=== PATIENT | female | born 1955 | race Caucasian/White ===

== ENCOUNTER 2021-10-21 10:09 | Outpatient (REF) | payer BC, SELFPAY ==
[2021-10-21 10:36] LABS: Basophils Absolute Auto 0.1 X10*3/uL (0.0-0.2); Basophils Percent Auto 0.8 % (0-2); Eosinophils Absolute Auto 0.3 X10*3/uL (0.0-0.4); Eosinophils Percent Auto 3.3 % (0-4); Hematocrit 41.2 % (37.0-47.0); Hemoglobin 13.3 g/dl (12.0-16.0); Imm Gran Abs Auto 0.02 X10*3/uL (0.00-0.03); Imm Gran Pct Auto 0.3 % (0.0-0.4); Lymphocytes Absolute Auto 2.1 X10*3/uL (1.2-4.9); Lymphocytes Percent Auto 28.1 % (20-40); MANUAL DIFF FLAG NO; Mean Corpuscular HGB Conc 32.3 g/dl (31.0-35.0); Mean Corpuscular Hemoglobin 29.6 pg (27.0-33.0); Mean Corpuscular Volume 91.6 fL (80.0-98.0); Mean Platelet Volume 9.9 fL (9.4-12.3); Monocytes Absolute Auto 0.8 X10*3/uL (0.1-1.2); Monocytes Percent Auto 10.2 % (2-11); Neutrophils Absolute Auto 4.4 x10*3/uL (2.0-8.3); Neutrophils Percent Auto 57.3 % (45-73); Platelet Count 290 X10*3/uL (160-400); Red Cell Distribution Width 13.6 % (11.0-16.0); White Blood Count 7.6 X10*3/uL (4.8-10.8)
[2021-10-21 11:08] LABS: C Reactive Protein 0.18 mg/dL (< or = 0.50)
[2021-10-21 11:58] LABS: Erythrocyte Sedimentation Rate 10 MM/HR (0-20)
[2021-10-23 16:01] LABS: TS Negative Control Passed; TS Panel A 0; TS Panel B 0; TS Positive Control Passed; TSpotTB Negative (Negative)
== END 2021-10-21 10:10 | disposition home or self-care (01) ==
LOC: HO.10HDL 10:09
PROVIDERS: Visit Provider Internal Medicine Rheumatology
DX: Z11.1 Encounter for screening for respiratory tuberculosis (principal); M06.00 Rheumatoid arthritis without rheumatoid factor, unspecified site; Z79.899 Other long term (current) drug therapy
CPT/HCPCS: 36415; 85025; 85652; 86140; 86481

== ENCOUNTER → 2022-03-26 09:07 | Outpatient (BNVA) | payer BC, SELFPAY | PROVIDERS: PCP Internal Medicine; Visit Provider Internal Medicine Rheumatology | DX: Z13.89 Encounter for screening for other disorder (principal) ==

== ENCOUNTER 2022-04-27 08:47 | Outpatient (REF) | payer BC, SELFPAY ==
--- NOTE | ~2022-04-27 | MR_ITS ---
EXAMINATION: MR LUMBAR SPINE WITHOUT CONTRAST CLINICAL INFORMATION: Spondylosis without myelopathy or radiculopathy, lumbar region. COMPARISON: None TECHNIQUE: MRI of the lumbar spine was obtained using routine sequences without contrast. FINDINGS: The lumbar vertebral bodies maintain normal heights. There is grade 1 retrolisthesis of L1 on L2 with associated severe disc height loss. There is grade 1 anterolisthesis of L3 on L4 and L5 on S1 and trace retrolisthesis of L4 on L5. Disc height loss is moderate to severe to L3-L4, L4-L5, and L5-S1. Advanced disc height loss is seen at the lower thoracic levels. There is endplate edema at L1-L2. The distal spinal cord appears normal. The conus medullaris terminates normally at the L2 level. There is fatty atrophy of the posterior paraspinal musculature. SPINAL LEVELS: L1-L2: Disc bulging with moderate to severe facet arthropathy resulting in mild spinal canal stenosis, subarticular stenosis, and severe left and moderate to severe right neural foraminal stenosis. L2-L3: Disc bulging with facet arthropathy, ligamentum flavum infolding, and epidural lipomatosis resulting in moderate spinal canal stenosis and severe right and moderate to severe left neural foraminal stenosis. L3-L4: Grade 1 anterolisthesis with ligament flavum infolding and severe facet arthropathy resulting in severe spinal canal stenosis with thecal sac compression. Moderate left and [id number] right neural foraminal stenosis. L4-L5: Disc bulging with moderate facet arthropathy. Osteophytic ridging extends into the extraforaminal zone resulting in compression of the extraforaminal left L4 nerve root. L5-S1: Disc bulging with severe facet arthropathy. No spinal canal stenosis. Osteophytic ridging abuts the exiting right L5 nerve root and compresses the exiting left L5 nerve root. MR/MR lumbar spine wo con IMPRESSION: 1. Advanced multilevel degenerative spondylotic changes. 2. At L1-L2 there is severe left and moderate to severe right neural foraminal stenosis. 3. At L2-L3 there is moderate spinal canal stenosis and severe right and moderate to severe left neural foraminal stenosis. 4. At L3-L4 there is severe spinal canal stenosis with thecal sac compression and moderate left and kqjn-vx-[id number] right neural foraminal stenosis. 5. At L4-L5 there is compression of the extraforaminal left L4 nerve root. 6. At L5-S1 there is compression of the exiting left L5 nerve root.
[2022-04-27 08:56] LABS: MANUAL DIFF FLAG NO
[2022-04-27 09:03] LABS: Basophils Absolute Auto 0.1 X10*3/uL (0.0-0.2); Basophils Percent Auto 0.9 % (0-2); Eosinophils Absolute Auto 0.3 X10*3/uL (0.0-0.4); Eosinophils Percent Auto 4.3 % (0-4); Hematocrit 44.9 % (37.0-47.0); Hemoglobin 14.4 g/dl (12.0-16.0); Imm Gran Abs Auto 0.02 X10*3/uL (0.00-0.03); Imm Gran Pct Auto 0.3 % (0.0-0.4); Lymphocytes Percent Auto 29.3 % (20-40); Mean Corpuscular HGB Conc 32.1 g/dl (31.0-35.0); Mean Corpuscular Hemoglobin 29.2 pg (27.0-33.0); Mean Corpuscular Volume 91.1 fL (80.0-98.0); Mean Platelet Volume 9.3 fL (9.4-12.3); Monocytes Absolute Auto 0.6 X10*3/uL (0.1-1.2); Neutrophils Absolute Auto 3.9 x10*3/uL (2.0-8.3); Neutrophils Percent Auto 56.2 % (45-73); Platelet Count 319 X10*3/uL (160-400); Red Blood Count 4.93 X10*6/uL (4.20-5.50); Red Cell Distribution Width 13.8 % (11.0-16.0); White Blood Count 6.9 X10*3/uL (4.8-10.8)
[2022-04-27 09:36] LABS: C Reactive Protein 0.21 mg/dL (< or = 0.50)
[2022-04-27 10:10] LABS: Erythrocyte Sedimentation Rate 12 MM/HR (0-20)
[2022-04-28 14:18] LABS: Cyclic Citrullinated Peptide <16 UNITS
== END 2022-04-27 08:48 | disposition home or self-care (01) ==
LOC: HO.MRI 08:47
PROVIDERS: PCP Internal Medicine; Visit Provider Internal Medicine Rheumatology
DX: M43.16 Spondylolisthesis, lumbar region (principal); M47.816 Spondylosis without myelopathy or radiculopathy, lumbar region; M06.00 Rheumatoid arthritis without rheumatoid factor, unspecified site
CPT/HCPCS: 36415; 72148; 85025; 85652; 86140; 86200

== ENCOUNTER 2022-06-16 09:47 | Outpatient (REF) | payer BC, SELFPAY ==
--- NOTE | ~2022-06-16 | XR_ITS ---
EXAMINATION: XR LUMBOSACRAL SPINE WITH OBLIQUES CLINICAL INFORMATION: Spondylolisthesis lumbar region. COMPARISON: Previous lumbar spine MRI April 2022. TECHNIQUE: AP, both oblique, and lateral views of the lumbar spine. Lateral view of the lumbosacral junction. FINDINGS: There is mild anterior subluxation of L3 with respect to L4. This is stable on flexion views and decreases on extension views. There is minimal retrolisthesis of L1 with respect to L2. This is stable on flexion-extension views. Bone alignment is otherwise normal. No fracture. Multilevel degenerative disc disease. Multilevel facet arthritis. XR/XR lumbar spine 4V min IMPRESSION: Mild anterior subluxation of L3 with respect to L4 stable on flexion and decreased with extension views. Multilevel degenerative changes.
== END 2022-06-16 09:48 | disposition home or self-care (01) ==
LOC: HO.HOSX 09:47
PROVIDERS: PCP Internal Medicine; Visit Provider Physician Assistant
DX: M43.16 Spondylolisthesis, lumbar region (principal)
CPT/HCPCS: 72110

== ENCOUNTER → 2022-08-12 08:47 | Outpatient (BNVA) | payer BC, SELFPAY | PROVIDERS: PCP Internal Medicine; Visit Provider Anesthesiology ==

== ENCOUNTER → 2022-09-07 09:19 | Outpatient (BNVA) | payer BC, SELFPAY | PROVIDERS: PCP Internal Medicine; Visit Provider Internal Medicine Rheumatology ==

== ENCOUNTER 2022-10-20 05:56 | Outpatient (REF) | payer BC, SELFPAY ==
--- NOTE | ~2022-10-20 | FL_ITS ---
EXAMINATION: XR FLUOROSCOPY WITH IMAGES CLINICAL INFORMATION: Spondylosis without myelopathy or radiculopathy, lumbar region. COMPARISON: None available. TECHNIQUE: Fluoroscopy Supervised By: Dr. Sky Guillen. Fluoroscopy Time: 1.0 minute. Cumulative Dose: 36.3 mGy. DAP: 0.631 Gycm2. Images: 8. FINDINGS: Images demonstrate needle placement and contrast injection adjacent to the bilateral lateral L2-L5 vertebrae FL/FL guidance in treatment room IMPRESSION: Fluoroscopy guidance for pain management procedure.
== END 2022-10-20 05:57 | disposition home or self-care (01) ==
LOC: CF 05:56
PROVIDERS: Visit Provider Anesthesiology
DX: M46.1 Sacroiliitis, not elsewhere classified (principal); M43.16 Spondylolisthesis, lumbar region; M47.816 Spondylosis without myelopathy or radiculopathy, lumbar region; Z79.899 Other long term (current) drug therapy
CPT/HCPCS: 64493; 64494

== ENCOUNTER 2022-10-20 07:29 | Outpatient (AMB) | payer BC, SELFPAY ==
--- NOTE | 2022-10-20 07:42 | MHC.OFFVIS ---
Intake Vital Signs 10/20/22 07:43 10/20/22 08:59 Height 5 ft 5 in 5 ft 5 in Weight 209 lb 209 lb BMI 34.8 34.8 BP 128/80 110/80 Blood Pressure Location Lt brachial Rt brachial Position Sitting Sitting Respiration 16 16 Pulse 80 77 Pulse Source Pulse Oximeter Pulse Oximeter Pulse Oximetry (%) 97 95 Oxygen Delivery Method Room Air Room Air Comment Pre-Op Post-op Intake Visit Reasons: BILAT L1-L2-L3 DX MBB/LOCAL Allergies morphine Adverse Reaction (Intermediate, Verified 10/20/22 07:43) Unknown PFSH Surgical History H/O arthroscopy of left knee H/O elbow surgery History of bladder suspension procedure History of total knee arthroplasty Hx of colonoscopy Hx of hysterectomy S/P bilateral breast lumpectomy Family History Other Gout Heart disease Lung cancer Osteoarthritis Rheumatoid arthritis Stomach cancer Stroke Social History Household Members: Spouse and Children Alcohol intake: current Alcohol intake frequency: holidays/special occasions only Patient Tobacco Use Status: Never used Tobacco service: No Current occupational status: employed Physical Exam Vital Signs: Last Vital Signs Pulse 77 10/20/22 08:59 Resp 16 10/20/22 08:59 BP 110/80 10/20/22 08:59 Pulse Ox 95 10/20/22 08:59 Oxygen Delivery Method Room Air 10/20/22 08:59 BMI result Body Mass Index 34.8 Assessment & Plan Assessment & Plan (1) Sacroiliitis: Code(s): M46.1 - Sacroiliitis, not elsewhere classified (2) Spondylolisthesis at L3-L4 level: Code(s): M43.16 - Spondylolisthesis, lumbar region (3) 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 ?Informed consent was explained to the patient. All questions were explained and? answered.? The patient was taken inside the operating room where she was positioned prone on the operating table. Time-out was performed delineating correct site, side, the nature of the procedure, patient's allergy, . All operating room staff was participating in OR time-out procedure. ? ? The lower back was prepped with ChloraPrep and draped with sterile towels.? C-arm was brought over the operating field and sq picture of L2, L3L4,L5 VERTEBRAE were delineated on the screen.? Point of interest were delineated as confluence of superior articular process of L2,L3,L4,L5 vertebra bilaterally with corresponding transverse processes.? The projection of the point of interest to the skin were injected with the small amount of local anesthetic lidocaine 2% 1-1.5 cc.? After that 22 gauge 3.5 inch spinal needle was driven sequentially to the points of interest in tunnel vision fashion. After needles gently contacted the bone at the point of interests the needle was injected with small amount of the contrast.? The injection of the contrast did not demonstrate any intravascular or intrathecal spread of the contrast.? After that injection of the? ropivacaine 0.5%-1cc was performed at each needle location.??after that the needles were removed and Bandaids were applied. ? Upon completion of the injections? needle was? removed and sterile Band-Aids were applied.? The patient tolerated procedure very well. (5) Spondylosis of lumbar region without myelopathy or radiculopathy: Code(s): M47.816 - Spondylosis without myelopathy or radiculopathy, lumbar region Plan I offered this patient to perform the same steroid injections she had that [facility]. Explained to her that although those were very effective steroids are not very healthy medications for her age. I also offered her to have diagnostic medial branch block L1-L2 L3-L4 bilateral to properly diagnose and establish her pain generator. I also would like to perform bilateral sacroiliac joint injection to diagnose portion of her pain. She will compare which procedure gives her most significant pain relief and we will choose appropriate modality to treat her pain interventionally. 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
[2022-10-20 07:43] VITALS: BP 128/80; PULSE 80; RESP 16; O2SAT 97; BMI 34.8
[2022-10-20 08:59] VITALS: BP 110/80; PULSE 77; RESP 16; O2SAT 95; BMI 34.8
== END 2022-10-20 09:19 | disposition home or self-care (01) ==
PROVIDERS: PCP Internal Medicine; Visit Provider Anesthesiology
DX: M47.816 Spondylosis without myelopathy or radiculopathy, lumbar region (principal)
CPT/HCPCS: 64493; 64494

== ENCOUNTER 2022-10-22 09:48 | Outpatient (AMB) | payer BC, SELFPAY ==
--- NOTE | 2022-10-22 09:52 | A.OFFVIS_ITS ---
Intake Vital Signs 10/22/22 09:57 Height 5 ft 5 in Weight 212 lb BMI 35.3 BP 130/80 Blood Pressure Location Lt brachial Position Sitting Respiration 14 Pulse 75 Pulse Source Pulse Oximeter Pulse Oximetry (%) 97 Oxygen Delivery Method Room Air Intake Visit Reasons: BILAT L1-L2-L3 DX MBB 10/20/22 Intake Note: patient comes in for post-op appointment. Allergies morphine Adverse Reaction (Intermediate, Verified 10/22/22 09:56) Unknown HPI HPI Comments History of Present Illness Details Swati is back in my office after diagnostic bilateral medial branch block L1,-L2, L3, during the procedure notice significant spondylosis in the projection of L4 vertebra and decided to address this issue by giving the patient 1 more level at L4 therefore patient actually received L1-L2 L3 and L4 medial branch blocks bilaterally. After the procedure she reported pain elimination for the 1st 2 hours, she reports 0 pain. At 03:00 hours after the procedure she reports pain 3/10 and 4 hours of the procedure she reported pain 5/10. At 06:00 hours after the procedure her pain went back. It corresponds to the time ropivacaine local anesthetic usually works in soft tissue injection. She reported to me that for the long period of time she was not able to state with her spine straight, her pain made her walk with her spine crooked forward. She enjoyed pain relief while it lasted after the procedure. I explained to the patient possibility of treatment of her condition with radiofrequency ablation versus sprint PNS. 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 However during the conversation she remembered about FMLA law in [place] where her employer is located which allows her to take up to 3 months from work without losing her position. She will request primary care physician assistance in feeling up application for FMLA. If she will succeed we will proceed with screen PNS. If not I can proceed with radiofrequency ablation L1-L2 L3 and L4 medial branches. She will give us a call about her decision. I will not schedule her yet for the procedure. Prior: complains on pain in lower back without radiation into bilateral lower extremities.? She is referred to this office by neuro surgery.? According to the referral she has very advanced disc degeneration in the lumbar spine with spondylolisthesis L3-L4 with significant central canal stenosis.? However she denies weakness in bilateral lower extremities she denies numbness in bilateral lower extremities are her pain is mostly axial without radiation into the legs.? She denies pain radiation into the upper back.? She was examined by x-ray and she was found mild anterior subluxation of L3 with respect of L4 stable on flexion and decreased with extension views she has multilevel degenerative changes.? She in the past had physical therapy performed by [facility] and currently she is a engaged a with physical therapy again.? She reports very minimal pain improvement with physical therapy.? She tried NSAIDs in the past without significant success. She reports that in the past she received L5-S1 epidural steroid injection by [facility] she reported prolonged pain relief from this injection.? She realizes that steroids can cause osteoporosis and potentially result in development of diabetes.? She received many steroid injections for her feet done by Podiatry. Her past medical history significant for rheumatoid arthritis.? Her past surgical history significant for total knee replacement twice in 2014 and in 2018.? She had a endometrial cancer surgery in 2019.? She denies smoking cigarettes denies drinking alcohol she denies recreational drugs she is employed full-time [employer] Surgical History H/O arthroscopy of left knee H/O elbow surgery History of bladder suspension procedure History of total knee arthroplasty Hx of colonoscopy Hx of hysterectomy S/P bilateral breast lumpectomy Family History Other Gout Heart disease Lung cancer Osteoarthritis Rheumatoid arthritis Stomach cancer Stroke Social History Household Members: Spouse and Children Alcohol intake: current Alcohol intake frequency: holidays/special occasions only Patient Tobacco Use Status: Never used Tobacco service: No Current occupational status: employed Review of Systems Const All systems reviewed & are unremarkable except as noted in HPI and below ENT Reports Normal hearing present Neuro Reports Normal hearing present, Denies Abnormal speech present, Denies confusion and Denies Sensory deficit (Neuro) Psych Denies confusion Physical Exam Vital Signs: Last Vital Signs Pulse 75 10/22/22 09:57 Resp 14 10/22/22 09:57 BP 130/80 10/22/22 09:57 Pulse Ox 97 10/22/22 09:57 Oxygen Delivery Method Room Air 10/22/22 09:57 BMI result Body Mass Index 35.3 Const General: no acute distress; No confusion Nutritional Appearance: obese morbidly obese Orientation/consciousness: patient oriented x3 and No confusion Eyes General: appearance normal, both eyes and all related structures Pupils: Equal, round and reactive pupils present EOM: EOMs intact bilaterally Neck Neck: Yes full ROM Chest Chest palpation & inspection: normal inspection of the chest Resp Effort & Inspection: normal respiratory effort, able to speak in complete sente nces, normal respiratory pattern, no audible wheezes and no cough Cardio Jugular venous distension: no JVD GI Inspection: Yes normal to inspection Back/Spine/Pelvis Other: On physical exam performed in neuro surgery office patient demonstrated normal strength of bilateral lower extremities, she denies any numbness in bilateral lower extremities, she has decrease of the bilateral patellar reflexes probably secondary to arthritis and total knee replacement on the left knee. SLR is negative bilaterally. Mac test is positive bilaterally and more pronounced on the right. Stinchfield test is positive on the right. Loading test is positive bilaterally. Reports severe tenderness on palpation projection of approximately L3-L4 lumbar vertebra. The rest of the spine is nontender on palpation. Neuro General: patient oriented x3, gait normal and No confusion Cranial nerves: Yes CN's II-XII intact bilaterally, Yes Equal, round and reactive pupils present, Yes Normal hearing present and Yes Ability to bilaterally elevate shoulders present Speech: No Abnormal speech present Gait exam (Neuro): Normal gait present Motor exam (neuro): 5/5 motor strength present throughout Sensory Exam: No Sensory deficit (Neuro) Extrem General: No pedal edema Psych Speech and movement: Normal speech and movement present Affect: normal affect Attitude: cooperative Thought process: Normal thought process present Thought content: Normal thought content present Insight: Good insight present (Psych) Judgement: Good judgement present (Psych) Assessment & Plan Assessment & Plan (1) Sacroiliitis: Code(s): M46.1 - Sacroiliitis, not elsewhere classified (2) Spondylolisthesis at L3-L4 level: Code(s): M43.16 - Spondylolisthesis, lumbar region (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 (5) Spondylosis of lumbar region without myelopathy or radiculopathy: Code(s): M47.816 - Spondylosis without myelopathy or radiculopathy, lumbar region Plan Very in cording results of the diagnostic medial branch block L1-L2 L3 with additional L4 application due to intraoperative findings. Sprint PNS versus RFA L1-L2 L3-L4 bilateral was discussed with the patient. Initially she thought that because of her occupation she would have to go for RFA. With conversation continued she remembered about [facility] about FMLA act, it looks like that she can take FMLA act for up to 3 months in [place]. She will give us a call and report what her decision will be. I personally prefer if she can afford to go for FMLA and get sprint PNS done to do the sprint procedure. 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
[2022-10-22 09:57] VITALS: BP 130/80; PULSE 75; RESP 14; O2SAT 97; BMI 35.3
== END 2022-10-22 10:14 | disposition home or self-care (01) ==
PROVIDERS: PCP Internal Medicine; Visit Provider Anesthesiology
DX: M46.1 Sacroiliitis, not elsewhere classified (principal); M43.16 Spondylolisthesis, lumbar region; Z79.899 Other long term (current) drug therapy; M47.816 Spondylosis without myelopathy or radiculopathy, lumbar region
CPT/HCPCS: 99214

== ENCOUNTER → 2022-10-22 09:51 | Outpatient (BNVA) | payer BC, SELFPAY | PROVIDERS: PCP Internal Medicine; Visit Provider Anesthesiology ==

== ENCOUNTER 2022-12-03 11:38 | Day surgery (SDC) | payer BC, SELFPAY ==
--- NOTE | ~2022-12-03 | FL_ITS ---
EXAMINATION: XR FLUOROSCOPY WITH IMAGES CLINICAL INFORMATION: RFA L1, L2, L3, L4, bilateral. COMPARISON: Lumbar spine x-ray June 2022 TECHNIQUE: Fluoroscopy Supervised By: Dr. Sky Guillen. Fluoroscopy Time: 1.9 minutes. Cumulative Dose: 68.2 mGy. DAP: 1.14 Gycm2. Images: 6. FINDINGS: Images demonstrate probe placement adjacent to the bilateral posterior lateral L1-L4 vertebral bodies. FL/FL guidance in OR IMPRESSION: Fluoroscopy guidance for pain management procedure
[2022-12-03 11:02] VITALS: BMI 35.8
[2022-12-03 11:52] VITALS: BP 115/64; PULSE 71; RESP 18; TEMP 36.3; O2SAT 97
--- NOTE | 2022-12-03 13:02 | P.HPSUR_ITS ---
Pre-Procedural Eval Section A Date of Service: 12/03/22 The patient is an INPATIENT: No Changes since office visit: Yes Patient answered all questions The History & Physical has been completed within 30 days and I have reviewed it.: No Section B Chief Complaint: Spondylosis without myelopathy or radiculopathy, l Details of Present Illness: As above Relevant Family History (Specify if Yes): No Relevant Social History: None Present Medications: see Short Stay Collaborative assessment Medical History: No relevant PMH History of Previous Operations: No relevant previous surgery Allergies: Allergies Allergy/AdvReac Type Severity Reaction Status Date / Time morphine AdvReac Intermediate Unknown Verified 10/22/22 09:56 Review of Systems Sugical H&P ROS: Negative: Constitution, Cardiovascular, Respiratory, Neurological, Psychiatric, Hem-Onc, Allergic/Immunologic, Gastrointestinal, Genitourinary, Musculoskeletal, Integumentary, Endocrine and Eyes/Ears/Nose/Thr oat Exam Surgical H&P Exam: Normal: HEENT, Normal: Heart, Normal: Lungs, Normal: Extremities, Normal: Abdomen, Normal: Skin and Normal: Neurological Plan Diagnosis/Plan: Unchanged I have reviewed the history and physical and performed a pertinent physical examination on my patient. No changes have occurred unless specified. Time Spent With Patient Time: Total time managing care of this patient today ___5_ minutes.
--- NOTE | 2022-12-03 13:14 | W.PM.OPN ---
Operative Note Operative Note Date of Service: 12/03/22 Narrative: RFA L1-L2-L3-L4 bilateral medial branches. Informed consent was explained to the patient. All questions were explained and answered. The patient was taken inside the operating room where he was positioned prone on the operating table. ASA m-rs were applied,? the patient was sedated however he was able to communicate with me during the entire procedure. The patient was explained that having the procedure while awake would be safer, he was? able to answer the questions and respond to the commands. Time-out was performed delineating name and of the patient,? correct site, side, the nature of the procedure, patient's allergy, preoperative antibiotic if needed. All operating room staff was participating in OR time-out procedure. The lower back was prepped with ChloraPrep and draped with sterile towels. C-arm was brought over the operating field and sq picture of L2, L3, L4, L5 vertebra were delineated on the screen. Point of interest were delineated as connection of superior articular process of? L2, L3, L4, L5 vertebra bilaterally with corresponding transverse processes 1st on the right and then on the left side.? ?The projection of the point of interest to the skin were injected with the small amount of local anesthetic lidocaine 2% 1-1.5 cc. After that 18 gauge 100 mm RFA canulas? were driven to the point of interest in oblique fashion. Needle advancement of the left side especially at L5 vertebra was significantly complicated by presence of the well advanced kissing spurs from L4 on L5 vertebras. Intervertebral disc between L4 and L5 vertebra is almost completely eliminated and total desiccated. After needles gently contacted the bone the? sensory and motor tests were performed.The lateral images were obtained and position of the tips of the needles away from the foramina and presumable location of the somatic nerves was verified. Sensory response was appropriate and no motor response was detected in the patients feet lower legs or thighs. After that? at the point of interests the cannulas? were injected with small amount of ropivacaine 0.5% mixed with lidocaine 1%-1cc?-2cc. And Trace amount of Kenalog. 90 seconds after the injection the energy application was performed at 89 degrees Centigrade for 90 second. After first energy application the canullas were rotated 180 degrees and energy application was repeated at the same setting.? Upon completion of the energy applications canullas were removed and sterile bandaids? were applied, The? patient was taken outside of the operating room to recovery room.
--- NOTE | 2022-12-03 13:16 | PM.OP ---
Brief Operative Note Date of Service: 12/03/22 Pre-op diagnosis: Spondylosis lumbar without myelopathy or radiculopathy Post-op diagnosis: same Procedure: radiofrequency ablation L1-L2-L3-L4 bilateral medial branches Surgeon: Sky Guillen MD Anesthesia: local Was an Crop Quantitative Geneticist used for this Procedure?: No Estimated blood loss (mL): 3 Condition: stable Disposition: PACU
[2022-12-03 14:55] VITALS: BP 117/73; PULSE 61; RESP 16; TEMP 37.6; O2SAT 96
== END 2022-12-03 15:20 | disposition home or self-care (01) ==
PROVIDERS: PCP Internal Medicine; Visit Provider Anesthesiology
PROC: (CPT 64635; principal; 2022-12-03 13:00)
DX: M47.816 Spondylosis without myelopathy or radiculopathy, lumbar region (principal); M54.50 Low back pain, unspecified; M43.16 Spondylolisthesis, lumbar region; M46.1 Sacroiliitis, not elsewhere classified; M51.36 Other intervertebral disc degeneration, lumbar region; M06.9 Rheumatoid arthritis, unspecified; Z79.899 Other long term (current) drug therapy; Z88.5 Allergy status to narcotic agent; Z96.652 Presence of left artificial knee joint; Z98.890 Other specified postprocedural states
CPT/HCPCS: 64635; 64636 ×2; J3301; Q9967

== ENCOUNTER → 2022-12-03 11:38 | Outpatient (BNV) | payer BC, SELFPAY | PROVIDERS: PCP Internal Medicine; Visit Provider Anesthesiology | DX: M47.816 Spondylosis without myelopathy or radiculopathy, lumbar region (principal) | CPT/HCPCS: 64635; 64636 ==

== ENCOUNTER 2023-01-06 09:24 | Outpatient (AMB) | payer BC, SELFPAY ==
--- NOTE | 2023-01-06 09:26 | A.OFFVIS_ITS ---
Intake Vital Signs 01/06/23 09:27 Height 5 ft 5 in Weight 213 lb BMI 35.4 BP 136/66 Blood Pressure Location Lt brachial Position Sitting Respiration 12 Pulse 73 Pulse Source Pulse Oximeter Pulse Oximetry (%) 96 Oxygen Delivery Method Room Air Intake Visit Reasons: BILAT L1-L2-L3 MB RFA 12/03/22 /Confirmed Allergies morphine Adverse Reaction (Intermediate, Verified 01/06/23 09:29) Unknown Medication List - Last Reconciled 01/06/23 by Temitope Richardson LPN adalimumab (Humira(CF) Pen) 40 mg (0.4 mL) subcut Q2W amlodipine 5 mg PO DAILY lisinopril-hydrochlorothiazide 20-25 mg 1 tab PO DAILY oxycodone 5 mg PO BID PRN tramadol 50 mg PO TID PRN HPI HPI Comments History of Present Illness Details Swati is back in my office after radiofrequency ablation of bilateral medial branch blocks L1-L2 L3 and L4. Reports excellent pain relief after radiofrequency ablation, she reports excellent mobility, she reports that for the long period of time she is able to stand straight and not experience severe pain in the back. She reports that no longer she needs to flex forward to alleviate her pain. She reports that she is more active at her work. She is also suffering from rheumatoid arthritis. She is under observation of our Rheumatology office. She receives Enbrel. She does not endorse that Enbrel helps her pain. She reports that primary care physician prescribes her tramadol on regular basis and few pills of oxycodone from time to time. She is also complaining on pain in bilateral feet and left knee. I offered her genicular nerve block on the left knee where she had total knee replacement twice. She still experiences severe pain in left knee but she states that major problem is bilateral feet. She would like to be seen by care aide again for possible injections in her feet. Her feet slightly edematous on the physical exam today. She had a scar on the anterior surface of the left knee delineating previous TKR. We agreed that she will give me a call if she decides to go for genicular nerve blocks. We also agreed that when her pain in the back will come back we can repeat radiofrequency ablation as before. Prior: I explained to the patient possibility of treatment of her condition with radiofrequency ablation versus sprint PNS. 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 However during the conversation she remembered about FMLA law in [place] where her employer is located which allows her to take up to 3 months from work without losing her position. She will request primary care physician assistance in feeling up application for FMLA. If she will succeed we will proceed with screen PNS. If not I can proceed with radiofrequency ablation L1-L2 L3 and L4 medial branches. She will give us a call about her decision. I will not schedule her yet for the procedure. Prior: complains on pain in lower back without radiation into bilateral lower extremities.? She is referred to this office by neuro surgery.? According to the referral she has very advanced disc degeneration in the lumbar spine with spondylolisthesis L3-L4 with significant central canal stenosis.? However she denies weakness in bilateral lower extremities she denies numbness in bilateral lower extremities are her pain is mostly axial without radiation into the legs.? She denies pain radiation into the upper back.? She was examined by x-ray and she was found mild anterior subluxation of L3 with respect of L4 stable on flexion and decreased with extension views she has multilevel degenerative changes.? She in the past had physical therapy performed by [facility] and currently she is a engaged a with physical therapy again.? She reports very minimal pain improvement with physical therapy.? She tried NSAIDs in the past without significant success. She reports that in the past she received L5-S1 epidural steroid injection by [facility] she reported prolonged pain relief from this injection.? She realizes that steroids can cause osteoporosis and potentially result in development of diabetes.? She received many steroid injections for her feet done by Podiatry. Her past medical history significant for rheumatoid arthritis.? Her past surgical history significant for total knee replacement twice in 2015 and in 2018.? She had a endometrial cancer surgery in 2019.? She denies smoking cigarettes denies drinking alcohol she denies recreational drugs she is employed full-time [employer] Surgical History H/O arthroscopy of left knee H/O elbow surgery History of bladder suspension procedure History of total knee arthroplasty Hx of colonoscopy Hx of hysterectomy S/P bilateral breast lumpectomy Family History Other Gout Heart disease Lung cancer Osteoarthritis Rheumatoid arthritis Stomach cancer Stroke Social History Household Members: Spouse and Children Alcohol intake: current Alcohol intake frequency: holidays/special occasions only Patient Tobacco Use Status: Never used Tobacco service: No Current occupational status: employed Review of Systems Const All systems reviewed & are unremarkable except as noted in HPI and below ENT Reports Normal hearing present Neuro Reports Normal hearing present, Denies Abnormal speech present, Denies confusion and Denies Sensory deficit (Neuro) Psych Denies confusion Physical Exam Vital Signs: Last Vital Signs Pulse 73 01/06/23 09:27 Resp 12 01/06/23 09:27 BP 136/66 01/06/23 09:27 Pulse Ox 96 01/06/23 09:27 Oxygen Delivery Method Room Air 01/06/23 09:27 BMI result Body Mass Index 35.4 Const General: no acute distress; No confusion Nutritional Appearance: obese morbidly obese Orientation/consciousness: patient oriented x3 and No confusion Eyes General: appearance normal, both eyes and all related structures Pupils: Equal, round and reactive pupils present EOM: EOMs intact bilaterally Neck Neck: Yes full ROM Chest Chest palpation & inspection: normal inspection of the chest Resp Effort & Inspection: normal respiratory effort, able to speak in complete sentences, normal respiratory pattern, no audible wheezes and no cough Cardio Jugular venous distension: no JVD GI Inspection: Yes normal to inspection Back/Spine/Pelvis Other: On physical exam performed in neuro surgery office patient demonstrated normal strength of bilateral lower extremities, she denies any numbness in bilateral lower extremities, she has decrease of the bilateral patellar reflexes probably secondary to arthritis and total knee replacement on the left knee. SLR is negative bilaterally. Mac test is positive bilaterally and more pronounced on the right. Stinchfield test is positive on the right. Loading test is positive bilaterally. Reports severe tenderness on palpation projection of approximately L3-L4 lumbar vertebra. The rest of the spine is nontender on palpation. Neuro General: patient oriented x3, gait normal and No confusion Cranial nerves: Yes CN's II-XII intact bilaterally, Yes Equal, round and reactive pupils present, Yes Normal hearing present and Yes Ability to bilaterally elevate shoulders present Speech: No Abnormal speech present Gait exam (Neuro): Normal gait present Motor exam (neuro): 5/5 motor strength present throughout Sensory Exam: No Sensory deficit (Neuro) Extrem Other: Significant edema on bilateral lower extremities especially feet joints. Very well-healed scar on anterior surface of the left knee. Status post TKR. 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 (5) Spondylosis of lumbar region without myelopathy or radiculopathy: Code(s): M47.816 - Spondylosis without myelopathy or radiculopathy, lumbar region Plan RFA L1-L2 L3-L4 was performed with good results for the patient. She reports improved mobility, excellent pain relief, better activities of daily living. Complains on pain bilateral feet. She would need to address this issues is her care aide. Complains on pain in left knee. I offered her genicular nerve block on the left knee status post TKR on the left. She reported that she does not feel that the level of the pain in the knee justify any injections at this time. She will give us a call if she thinks that is pain in the left knee is significant for her to address it with genicular block. Also she will give us a call when she starts to feel pain in the lower back. We can repeat RFA as above. Patient Instructions: I here by testify that I spent 32 minutes in conversation with this patient as well as planning her care, organizing her note. 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
[2023-01-06 09:27] VITALS: BP 136/66; PULSE 73; RESP 12; O2SAT 96; BMI 35.4
== END 2023-01-06 10:01 | disposition home or self-care (01) ==
PROVIDERS: PCP Internal Medicine; Visit Provider Anesthesiology
DX: M46.1 Sacroiliitis, not elsewhere classified (principal); M43.16 Spondylolisthesis, lumbar region; Z79.899 Other long term (current) drug therapy; M47.816 Spondylosis without myelopathy or radiculopathy, lumbar region
CPT/HCPCS: 99214

== ENCOUNTER → 2023-01-06 09:24 | Outpatient (BNVA) | payer BC, SELFPAY | PROVIDERS: PCP Internal Medicine; Visit Provider Anesthesiology ==

== ENCOUNTER 2023-02-16 09:29 | Outpatient (AMB) | payer BC, SELFPAY ==
--- NOTE | 2023-02-16 09:32 | MHC.OFFVIS ---
Intake Vital Signs 02/16/23 09:38 Height 5 ft 5 in Weight 209 lb 7.026 oz BMI 34.8 BP 132/90 H Blood Pressure Location Lt brachial Position Sitting Pulse 71 Pulse Source Pulse Oximeter Temp 97 F Temp Source Skin Pulse Oximetry (%) 98 Oxygen Delivery Method Room Air Intake Visit Reasons: ra Intake Note: Patient presents today to follow up on RA. Reports worsening myalgias due to cold weather. 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 She remains on Humira 40 mg every 2 weeks. She is on some tramadol and oxycodone through her PCP. Mostly this pain involves the back pain, knee pains, and left and right foot pain. She did have a nerve ablation procedure back in the fall for her back pain. That did help for about 6 weeks but the pain on the right buttock area is starting to return. She has seen Podiatry about her left foot and there is consideration for a triple arthrodesis. She has been putting off such procedure however because she just found out that her son has non-Hodgkin's lymphoma. She is bringing him to chemotherapy this week. She is out of work currently to take care of her son but plans to retire in the next few weeks. She remains disappointed by a numbness and pain around the left knee where she has had the knee replacement and then a revision. She does admit the range of motion of the knee is better since the revision. The right knee is also painful with walking. [facility] Surgical History H/O arthroscopy of left knee H/O elbow surgery History of bladder suspension procedure History of total knee arthroplasty Hx of colonoscopy Hx of hysterectomy S/P bilateral breast lumpectomy Family History Other Gout Heart disease Lung cancer Osteoarthritis Rheumatoid arthritis Stomach cancer Stroke Social History Household Members: Spouse and Children Alcohol intake: current Alcohol intake frequency: holidays/special occasions only Patient Tobacco Use Status: Never used Tobacco service: No Current occupational status: employed Review of Systems Const Details: Negative for appetite change, weight change, fever, chills, malaise and fatigue Eyes Details: Negative for vision change, dry eyes,headaches and dizziness ENT Details: Negative for hearing change, tinnitus, oral ulcer, nose bleeds and oral dryness. Card Details: Negative chest pain, edema and syncope Resp Details: Negative for SOB, cough and wheezing GI Details: Negative indigestion/heartburn, nausea, abdominal pain, bowel changes, diarrhea, constipation and bloody stool. Neuro Details: Negative for epilepsy, palsy, stroke, changes in speech, tingling and weakness Psych Details: Son with recent diagnosis of lymphoma. This is cause more stress for her. The son apparently has special needs and lives with the parents. Binu/Lymph Details: Negative for excessive bruising or bleeding. Physical Exam Vital Signs: Last Vital Signs Temp 97 F 02/16/23 09:38 Pulse 71 02/16/23 09:38 BP 132/90 H 02/16/23 09:38 Pulse Ox 98 02/16/23 09:38 Oxygen Delivery Method Room Air 02/16/23 09:38 BMI result Body Mass Index 34.8 APPEARANCE: Patient in no acute distress EYES no redness, pupils equal and reactive to light, eyelids normal EXTREMITIES: Some varicosities are evident over the legs and feet but they are not tender. She has no edema, no calf tenderness; there are normal normal peripheral pulses. Joint exam: Cervical Spine:.? Full range of motion with mild pain at the extremes.? No tenderness. Thoracic Spine:.? No scoliosis.? No tenderness on palpation. Lumbar Spine:.? Alignment normal.? Some moderate pain with flexion at 45 degrees.? There is bilateral paraspinal muscle tenderness. Chest Wall:.? No tenderness, swelling, increased warmth or erythema. Hands:? Right:? There is moderate bony enlargement and mild tenderness at the base of the thumb.? There is some soft tissue swelling at the 1st 3 MCPs but they are not tender today.? There is some slight thickening without tenderness of the 2nd and 3rd PIP joints.? There is no sensory loss or thenar atrophy.? Left:? Mild to moderate swelling and tenderness at the base of the thumb.? This looks to be bony enlargement.? There is mild soft tissue swelling at the 1st two MCP joints with no tenderness.? There is nontender thickening at the 2nd through 4th PIP joints.? There is no thenar atrophy or sensory loss.? Wrists:.? Normal pain-free range of motion without tenderness, swelling, increased warmth or erythema. Elbows:. Normal pain-free range of motion without tenderness, swelling, increased warmth or erythema. Shoulders:.?? Full range of motion without pain. No tenderness, weakness, swelling, increased warmth or erythema. Hips:? Full range of motion without pain. Hip bursa:? No tenderness. Knees:?? Left:? Well-healed scar from a knee replacement is evident anteriorly.? There is mild pain with full extension or flexion beyond 100 degrees.? No tenderness, redness or warmth.? Left:? Normal pain-free range of motion with mild patellofemoral crepitus.? There is mild medial compartment tenderness but no effusion, swelling, increased warmth or erythema.? Ankles:? Left:? There is soft tissue swelling and valgus deformity at the ankle.? There is pain with any inversion or eversion and mild pain with the extremes of flexion or extension.? Inversion and eversion are limited to about 10 degrees. There is mild medial and lateral tenderness without redness or warmth.? There is no tenderness over the Achilles.? Right:? Slight valgus deformity of the ankle.? Slight discomfort with extremes of inversion and eversion but AP motion is pain-free.? There is some minimal lateral tenderness without swelling, redness or warmth. Feet:? Mild tenderness across the insteps bilaterally, a bit more prominently notable on the left.? There is tenderness at the 1st MTP's where she has hallux valgus deformity in 1st MTP bony enlargement.? This is also greater on the left.? There are no breaks in the skin; no redness or warmth. Tender points:? No tenderness to digital palpation at the occiput, trapezius, second rib, lateral epicondyle, knees, greater trochanter and gluteal area bilaterally. ? 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: Code(s): Z79.899 - Other mcc (current) drug therapy (4) History of total left knee replacement: Comment: Left- late 2014; revised 11/2019 Code(s): Z96.652 - Presence of left artificial knee joint (5) Seronegative rheumatoid arthritis: Comment: Onset approx 2004: ankle and hand synovitis RF, CCP negative; JACK pos(1: 320 speckled) Sulfasalazine 2006 to end of 2007 - not helpful; methotrexate Started 10/13 08/14-Enbrel added 04/17- discussion surgical options for left foot 03/22-left TKR(Janelle); redo 03/22: Patient stopped Enbrel because of resp Infections; did not restart methotrexate because of nausea 01/22: leflunomide for 6 weeks but not tolerated due to diarrhea 05/23: Humira started Code(s): M06.00 - Rheumatoid arthritis without rheumatoid factor, unspecified site Plan She has many areas of arthritis but most of this looks like it is osteoarthritis today. The lumbar spine, thumb joints, and left foot all have osteoarthritis. I think inflammatory findings from her RA are under control with current treatment. The normal sed rate and CRP would support that assessment. It sounds as if she may move towards having foot surgery at some point in the distant future but right now she is engaged in taking care of her son. She will also get more time when she retires to tend to her medical issues. She may want to check in with pain management again about the injections in the back if the back symptoms worsen again. A follow-up in 5 months is recommended. 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
[2023-02-16 09:38] VITALS: BP 132/90; PULSE 71; TEMP 36.1; O2SAT 98; BMI 34.8
== END 2023-02-16 09:57 | disposition home or self-care (01) ==
PROVIDERS: PCP Internal Medicine; Visit Provider Internal Medicine Rheumatology
DX: M47.816 Spondylosis without myelopathy or radiculopathy, lumbar region (principal); M19.049 Primary osteoarthritis, unspecified hand; Z79.899 Other long term (current) drug therapy; Z96.652 Presence of left artificial knee joint; M06.00 Rheumatoid arthritis without rheumatoid factor, unspecified site
CPT/HCPCS: 99213

== ENCOUNTER → 2023-02-16 09:29 | Outpatient (BNVA) | payer BC, SELFPAY | PROVIDERS: PCP Internal Medicine; Visit Provider Internal Medicine Rheumatology ==

== ENCOUNTER 2023-07-20 08:49 | Outpatient (AMB) | payer BC, SELFPAY ==
--- NOTE | 2023-07-20 08:52 | A.OFFVIS_ITS ---
Vital Signs 07/20/23 09:00 Height 5 ft 5 in Weight 197 lb 5.019 oz BMI 32.8 BP 144/96 H Blood Pressure Location Rt brachial Position Sitting Pulse 76 Pulse Source Pulse Oximeter Pulse Oximetry (%) 97 Oxygen Delivery Method Room Air Intake Visit Reasons: RA Intake Note: Patient last seen 02/16/[address] Vega, presents today for RA follow up. Patient reports the sole of her feet feel like a burning fire. [facility] Required: No Accompanied by: Self / Same As Patient Allergies morphine Adverse Reaction (Intermediate, Verified 07/20/23 08:53) Unknown HPI Comments Details: Ms. Longoria 67yoF returns today for evaluation of her rheumatoid arthritis and osteoarthritis. She remains on Humira 40 mg every 2 weeks. She is on some tramadol and oxycodone through her PCP. Mostly this pain involves the back pain, knee pains, and left and right foot and ankles pain. Still following with Podiatry but not amenable to surgery due to the estimated 9 month recovery time; per patient she needs to work. Due to her ankle and foot pains, she is concerned that maybe HUMIRA no longer therapeutic. 02/2023: Dr. Vega: The patient returns today for evaluation of her rheumatoid arthritis and osteoarthritis. She remains on Humira 40 mg every 2 weeks. She is on some tramadol and oxycodone through her PCP. Mostly this pain involves the back pain, knee pains, and left and right foot pain. She did have a nerve ablation procedure back in the fall for her back pain. That did help for about 6 weeks but the pain on the right buttock area is starting to return. She has seen Podiatry about her left foot and there is consideration for a triple arthrodesis. She has been putting off such procedure however because she just found out that her son has non-Hodgkin's lymphoma. She is bringing him to chemotherapy this week. She is out of work currently to take care of her son but plans to retire in the next few weeks. She remains disappointed by a numbness and pain around the left knee where she has had the knee replacement and then a revision. She does admit the range of motion of the knee is better since the revision. The right knee is also painful with walking. [facility] Medical History (Updated 07/20/23 @ 10:52 by JOSE ALFREDO Alejandra) Acquired valgus deformity of both ankles Osteoarthritis of ankle and foot Bilateral swelling of feet and ankles Swelling of ankle joint Surgical History Hx of colonoscopy H/O elbow surgery S/P bilateral breast lumpectomy History of bladder suspension procedure Hx of hysterectomy History of total knee arthroplasty H/O arthroscopy of left knee Family History Other Gout Heart disease Lung cancer Osteoarthritis Rheumatoid arthritis Stomach cancer Stroke Social History Household Members: Spouse and Children Alcohol intake: current Alcohol intake frequency: holidays/special occasions only Patient Tobacco Use Status: Never used Tobacco service: No Current occupational status: employed Review of Systems Const All systems reviewed & are unremarkable except as noted in HPI and below Physical Exam Vital Signs: Last Vital Signs Pulse 76 07/20/23 09:00 BP 144/96 H 07/20/23 09:00 Pulse Ox 97 07/20/23 09:00 Oxygen Delivery Method Room Air 07/20/23 09:00 BMI result Body Mass Index 32.8 APPEARANCE: Patient in no acute distress EYES no redness, pupils equal and reactive to light, eyelids normal EXTREMITIES: Some varicosities are evident over the legs and feet but they are not tender. She has no edema, no calf tenderness; there are normal normal peripheral pulses. Joint exam: Cervical Spine:.? Full range of motion with mild pain at the extremes.? No tenderness. Thoracic Spine:.? No scoliosis.? No tenderness on palpation. Lumbar Spine:.? Alignment normal.? Some moderate pain with flexion at 45 degrees.? There is bilateral paraspinal muscle tenderness. Chest Wall:.? No tenderness, swelling, increased warmth or erythema. Hands:? Right:? There is moderate bony enlargement and mild tenderness at the b ase of the thumb.? There is some soft tissue swelling at the 1st 3 MCPs but they are not tender today.? There is some slight thickening without tenderness of the 2nd and 3rd PIP joints.? There is no sensory loss or thenar atrophy.? Left:? No more Mild to moderate swelling and tenderness at the base of the thumb.? This looks to be bony enlargement.? No more soft tissue swelling at the 1st two MCP j oints with no tenderness.? There is nontender thickening at the 2nd through 4th PIP joints.? There is no thenar atrophy or sensory loss.? Ulnar drift to both hands. Wrists:.? Normal pain-free range of motion without tenderness, swelling, increased warmth or erythema. Elbows:. Normal pain-free range of motion without tenderness, swelling, increased warmth or erythema. Shoulders:.?? Full range of motion without pain. No tenderness, weakness, swelling, increased warmth or erythema. Hips:? Full range of motion without pain. Hip bursa:? No tenderness. Knees:?? Left:? Well-healed scar from a knee replacement is evident anteriorly.? There is mild pain with full extension or flexion beyond 100 degrees.? No tenderness, redness or warmth.? Left:? Normal pain-free range of motion with mild patellofemoral crepitus.? There is mild medial compartment tenderness but no effusion, swelling, increased warmth or erythema.? Ankles:? Left:? There is soft tissue swelling and valgus deformity at both of the ankles.? There is pain with any inversion or eversion and mild pain with the extremes of flexion or extension.? Inversion and eversion are limited to about 10 degrees. There is mild medial and lateral tenderness without redness or warmth.? There is no tenderness over the Achilles.? Right:? Severe valgus deformity of the ankle.? Marked discomfort with extremes of inversion and eversion but AP motion is pain-free.? There is some minimal lateral tenderness with swelling, but no redness or warmth. Feet:? Mild tenderness across the insteps bilaterally, a bit more prominently notable on the left.? There is tenderness at the 1st MTP's where she has hallux valgus deformity in 1st MTP bony enlargement.? This is also greater on the left.? There are no breaks in the skin; no redness or warmth. Tender points:? No tenderness to digital palpation at the occiput, trapezius, second rib, lateral epicondyle, knees, greater trochanter and gluteal area bilaterally. ? Assessment & Plan Assessment & Plan (1) Seronegative rheumatoid arthritis: Comment: Onset approx 2004: ankle and hand synovitis RF, CCP negative; JACK pos(1: 320 speckled) Sulfasalazine 2007 to end of 2007 - not helpful; methotrexate Started 10/13 08/14-Enbrel added 04/17- discussion surgical options for left foot 03/22-left TKR(Janelle); redo 2020 03/22: Patient stopped Enbrel because of resp Infections; did not restart methotrexate because of nausea 01/22: leflunomide for 6 weeks but not tolerated due to diarrhea 05/23: Humira started Code(s): M06.00 - Rheumatoid arthritis without rheumatoid factor, unspecified site Category: Medical (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: Code(s): Z79.899 - Other halfway (current) drug therapy Category: Medical (3) Osteoarthritis, hand: Code(s): M19.049 - Primary osteoarthritis, unspecified hand Category: Medical Qualifiers: Laterality: bilateral Osteoarthritis type: other secondary Qualified Code(s): M19.241 - Secondary osteoarthritis, right hand; M19.242 - Secondary osteoarthritis, left hand (4) Bilateral swelling of feet and ankles: Code(s): M25.471 - Effusion, right ankle; M25.472 - Effusion, left ankle; M25.474 - Effusion, right foot; M25.475 - Effusion, left foot Category: Medical (5) Osteoarthritis of ankle and foot: Code(s): M19.079 - Primary osteoarthritis, unspecified ankle and foot Category: Medical (6) Acquired valgus deformity of both ankles: Code(s): M21.071 - Valgus deformity, not elsewhere classified, right ankle; M21.072 - Valgus deformity, not elsewhere classified, left ankle Category: Medical Plan #RA: It appears that the RA is managed by the HUMIRA 40 mg Q2Week. We need updated labs but at last visit, there was normal sed rate and CRP to support that assessment. I think most of her ankle and foot pain are OA related and the mechanical consequences of that. She did ask about RINVOQ but I recommended that we maintain the HUMIRA and work on improving the mechanics of her feet and ankle first. I also suggest that adding back MTX is also an option. She is agreeable to this plan. If the labs are within therapeutic range, we will maintain the treatment as is. 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 #Ankle and Foot OA with deformity: I think the discomfort to her feet and ankle is mechanical and can be helped with proper footwear. This is not stubborn RA. The patient has sever valgus/pes planus deformity to ankle and feet. She can benefit from high top work boots with thick socks when she is working. the high top will give some support to her ankle. She should continue to follow with Podiatry. A follow-up in 4 months. I spent 40 minutes, reviewing history/chart, evaluating patient and documenting Orders: Orders Complete Blood Count Auto Diff Today M06.00 - Rheumatoid arthritis without rheumatoid factor, unspecified site, Z79.899 - Other halfway (current) drug therapy Comprehensive Met. Panel Today M06.00 - Rheumatoid arthritis without rheumatoid factor, unspecified site, Z79.899 - Other termite exterminator (current) drug therapy C Reactive Protein Today M06.00 - Rheumatoid arthritis without rheumatoid factor, unspecified site, Z79.899 - Other termite exterminator (current) drug therapy Uric Acid Today M25.473 - Effusion, unspecified ankle Immunoglobulins,IgG IgA IgM Today M25.473 - Effusion, unspecified ankle Erythrocyte Sedimentation Rate Today M06.00 - Rheumatoid arthritis without rheumatoid factor, unspecified site, Z79.899 - Other halfway (current) drug therapy Coding Level of Care Code Est Pt Level 4 (67044) Complex EM visit Add On G2211 Diagnoses Seronegative rheumatoid arthritis M06.00 detention current use of immunosuppressive drug Z79.899 Other secondary osteoarthritis of both hands M19.241; M19.242 Laterality: bilateral Osteoarthritis type: other secondary Bilateral swelling of feet and ankles M25.471; M25.472; M25.474; M25.475 Osteoarthritis of ankle and foot M19.079 Acquired valgus deformity of both ankles M21.071; M21.072
[2023-07-20 09:00] VITALS: BP 144/96; PULSE 76; O2SAT 97; BMI 32.8
== END 2023-07-20 09:42 | disposition home or self-care (01) ==
PROVIDERS: PCP Internal Medicine; Visit Provider Nurse Practitioner Family
DX: M06.00 Rheumatoid arthritis without rheumatoid factor, unspecified site (principal); Z79.899 Other long term (current) drug therapy; M19.241 Secondary osteoarthritis, right hand; M19.242 Secondary osteoarthritis, left hand; M25.471 Effusion, right ankle; M25.472 Effusion, left ankle; M25.474 Effusion, right foot; M25.475 Effusion, left foot; M19.079 Primary osteoarthritis, unspecified ankle and foot; M21.071 Valgus deformity, not elsewhere classified, right ankle; M21.072 Valgus deformity, not elsewhere classified, left ankle
CPT/HCPCS: 99214; G2211

== ENCOUNTER → 2023-07-20 08:49 | Outpatient (BNVA) | payer BC, SELFPAY | PROVIDERS: PCP Internal Medicine; Visit Provider Nurse Practitioner Family ==

== ENCOUNTER 2023-07-20 09:48 | Outpatient (REF) | payer BC, SELFPAY ==
[2023-07-20 11:09] LABS: MANUAL DIFF FLAG NO
[2023-07-20 11:14] LABS: Basophils Absolute Auto 0.1 X10*3/uL (0.0-0.2); Basophils Percent Auto 0.8 % (0-2); Eosinophils Absolute Auto 0.2 X10*3/uL (0.0-0.4); Eosinophils Percent Auto 1.9 % (0-4); Hematocrit 42.9 % (37.0-47.0); Hemoglobin 13.9 g/dl (12.0-16.0); Imm Gran Abs Auto 0.04 X10*3/uL (0.00-0.03); Imm Gran Pct Auto 0.3 % (0.0-0.4); Lymphocytes Absolute Auto 2.8 X10*3/uL (1.2-4.9); Lymphocytes Percent Auto 24.1 % (20-40); Mean Corpuscular HGB Conc 32.4 g/dl (31.0-35.0); Mean Corpuscular Hemoglobin 29.8 pg (27.0-33.0); Mean Corpuscular Volume 91.9 fL (80.0-98.0); Monocytes Absolute Auto 0.9 X10*3/uL (0.1-1.2); Monocytes Percent Auto 7.8 % (2-11); Neutrophils Absolute Auto 7.6 x10*3/uL (2.0-8.3); Neutrophils Percent Auto 65.1 % (45-73); Platelet Count 313 X10*3/uL (160-400); Red Blood Count 4.67 X10*6/uL (4.20-5.50); Red Cell Distribution Width 14.3 % (11.0-16.0); White Blood Count 11.7 X10*3/uL (4.8-10.8)
[2023-07-20 11:48] LABS: Alanine Aminotransferase 16 U/L (0-31); Alkaline Phosphatase 55 U/L (39-117); Anion Gap 14 (12-20); Aspartate Amino Transferase 15 U/L (5-31); Bilirubin Total 0.4 mg/dL (0.0-1.0); Blood Urea Nitrogen 21 mg/dL (9-16); C Reactive Protein 0.17 mg/dL (< or = 0.50); Calcium 9.9 mg/dL (8.4-10.2); Carbon Dioxide 29 mmol/L (22-29); Chloride 105 mmol/L (96-108); Estimated Glomerular Filt Rate 60; Glucose Random 99 mg/dL (60-115); Potassium 3.8 mmol/L (3.3-5.1); Sodium 144 mmol/L (135-145); Total Protein 7.3 g/dL (6.5-8.0); Uric Acid 6.5 mg/dL (2.4-5.7)
[2023-07-20 11:53] LABS: Erythrocyte Sedimentation Rate 11 MM/HR (0-20)
[2023-07-23 07:18] LABS: IgA 456 mg/dL (70-320); IgG 1061 mg/dL (600-1540); IgM 101 mg/dL (50-300)
== END 2023-07-20 09:49 | disposition home or self-care (01) ==
LOC: HO.10HDL 09:48
PROVIDERS: Visit Provider Nurse Practitioner Family
DX: M06.00 Rheumatoid arthritis without rheumatoid factor, unspecified site (principal); M25.473 Effusion, unspecified ankle; Z79.899 Other long term (current) drug therapy
CPT/HCPCS: 36415; 80053; 82784; 84550; 85025; 85652; 86140

== ENCOUNTER 2023-12-31 09:08 | Outpatient (AMB) | payer BC, SELFPAY ==
--- NOTE | 2023-12-31 09:13 | MHC.OFFVIS ---
Vital Signs 12/31/23 09:14 Height 5 ft 5 in Weight 190 lb 11.198 oz BMI 31.7 BP 128/80 Blood Pressure Location Lt brachial Position Sitting Pulse 71 Pulse Source Pulse Oximeter Pulse Oximetry (%) 98 Oxygen Delivery Method Room Air Intake Visit Reasons: RA/cm Intake Note: Patient is here for follow up on RA, last seen in the office by Tea Ochoa on 07/20/23. Patient has been treated for gash in her left leg, therefore, queen ot taken the Humira. She feels it's not doing anything for her anymore, anyway. Allergies morphine Adverse Reaction (Intermediate, Verified 12/31/23 09:15) Unknown Medication List - Last Reconciled 12/31/23 by Chrissy Koo MD adalimumab (Humira(CF) Pen) INJECT 40MG SUBCUTANEOUSLY EVERY 2 WEEKS amlodipine 5 mg PO DAILY furosemide 20 mg PO DAILY lisinopril-hydrochlorothiazide 20-25 mg 1 tab PO DAILY oxycodone 5 mg PO BID PRN tramadol 50 mg PO TID PRN HPI Comments Details: Patient is a 68-year-old female with seronegative nonerosive rheumatoid arthritis and osteoarthritis of the hand who presents for follow-up Interval History: Patient last seen 07/20/2023 with Tea Ochoa. At that time she was complaining of bilateral ankle and foot pains which were not new but she was concerned that the Humira may no longer be therapeutic. Today She continues to have pain and swelling to her bilateral ankles and this is her main complaint. Is following up with Podiatry but they say that the surgery may be too difficult and she is seeking a 2nd opinion. She is also complaining of right shoulder and bilateral outer hip pain Rheumatologic History: Onset approx 2004: ankle and hand synovitis RF, CCP negative; JACK pos(1: 320 speckled) Sulfasalazine 2006 to end of 2007 - not helpful; methotrexate Started 10/13 08/14-Enbrel added 04/17- discussion surgical options for left foot 03/22-left TKR(Janelle); redo 03/22: Patient stopped Enbrel because of resp Infections; did not restart methotrexate because of nausea 01/22: leflunomide for 6 weeks but not tolerated due to diarrhea 05/23: Humira started. 12/2023 Stopped. LE swelling, concern for HF 12/2023: Started plaquenil Current Rheumatology Medication(s): Humira 40mg every other week [facility] Medical History (Updated 12/31/23 @ 10:20 by Chrissy Koo MD) Trochanteric bursitis of both hips Subacromial bursitis of right shoulder joint Acquired valgus deformity of both ankles Osteoarthritis of ankle and foot Bilateral swelling of feet and ankles Swelling of ankle joint Surgical History Hx of colonoscopy H/O elbow surgery S/P bilateral breast lumpectomy History of bladder suspension procedure Hx of hysterectomy History of total knee arthroplasty H/O arthroscopy of left knee Family History Other Gout Heart disease Lung cancer Osteoarthritis Rheumatoid arthritis Stomach cancer Stroke Social History Household Members: Spouse and Children Alcohol intake: current Alcohol intake frequency: holidays/special occasions only Patient Tobacco Use Status: Never used Tobacco service: No Current occupational status: employed Physical Exam Vital Signs: Last Vital Signs Pulse 71 12/31/23 09:14 BP 128/80 12/31/23 09:14 Pulse Ox 98 12/31/23 09:14 Oxygen Delivery Method Room Air 12/31/23 09:14 BMI result Body Mass Index 31.7 APPEARANCE: Patient in no acute distress EYES no redness, pupils equal and reactive to light, eyelids normal EXTREMITIES: Some varicosities are evident over the legs and feet but they are not tender. Edema noted to the bilateral lower extremities. Pitting up to mid garcia Joint exam: Cervical Spine:.? Full range of motion with mild pain at the extremes.? No tenderness. Thoracic Spine:.? No scoliosis.? No tenderness on palpation. Lumbar Spine:.? Alignment normal.? Some moderate pain with flexion at 45 degrees.? There is bilateral paraspinal muscle tenderness. Chest Wall:.? No tenderness, swelling, increased warmth or erythema. Hands:? Right:? There is moderate bony enlargement and mild tenderness at the base of the thumb.? There is some soft tissue swelling at the 1st 3 MCPs no tendon. There is some slight thickening without tenderness of the 2nd and 3rd PIP joints.? There is no sensory loss or thenar atrophy.? Left:? No more Mild to moderate swelling and tenderness at the base of the thumb.? This looks to be bony enlargement.? No more soft tissue swelling at the 1st two MCP joints with no tenderness.? There is nontender thickening at the 2nd through 4th PIP joints.? There is no thenar atrophy or sensory loss.? Ulnar deviation to both hands. Wrists:.? Normal pain-free range of motion without tenderness, swelling, increased warmth or erythema. Elbows:. Normal pain-free range of motion without tenderness, swelling, increased warmth or erythema. Shoulders:.??Right shoulder with pain to palpation of the subacromial bursa. Full range of motion. Hips:? Full range of motion without pain. Hip bursa:? Bilateral hip bursa tenderness. Knees:?? Left:? Well-healed scar from a knee replacement is evident anteriorly.? There is mild pain with full extension or flexion beyond 100 degrees.? No tenderness, redness or warmth.? Left:? Normal pain-free range of motion with mild patellofemoral crepitus.? There is mild medial compartment tenderness but no effusion, swelling, increased warmth or erythema.? Ankles:? Left:? There is soft tissue swelling and valgus deformity at both of the ankles.? There is pain with any inversion or eversion and mild pain with the extremes of flexion or extension.? Inversion and eversion are limited to about 10 degrees. There is mild medial and lateral tenderness without redness or warmth.? There is no tenderness over the Achilles.? Right:? Severe valgus deformity of the ankle.? Marked discomfort with extremes of inversion and eversion but AP motion is pain-free.? There is some minimal lateral tenderness with swelling, but no redness or warmth. Feet:? Mild tenderness across the insteps bilaterally, a bit more prominently notable on the left.? There is tenderness at the 1st MTP's where she has hallux valgus deformity in 1st MTP bony enlargement.? This is also greater on the left.? There are no breaks in the skin; no redness or warmth. Tender points:? No tenderness to digital palpation at the occiput, trapezius, second rib, lateral epicondyle, knees, greater trochanter and gluteal area bilaterally. Skin: Left lower leg with bandage covering small healing ulcer. ? Office Procedures Joint Injection/Aspiration Joint Injection/Aspiration Details: Procedure was explained to the patient and consent was obtained. ? The area of interest was identified and confirmed with patient. ?This was subsequently cleaned with chlorhexidine x3. ? The area was then anesthetized using ethyl chloride spray. 40 mg Kenalog with 1 cc 1% lidocaine was injected without issue. ?Minimal to no bleeding. ?Patient tolerated procedure. Primary Site: right shoulder (Subacromial bursa) Prep: site was prepped using aseptic technique and ethochloride spray was applied Injected: 40 mg of, Kenalog, with 1 mL of and 1% plain lidocaine Approach Used: other (Lateral approach) Procedure: The patient tolerated the procedure well Coding 45427 - Glenohumeral/Tronchanteric Bursa/Intraarticular Procedure code (CPT) selection complete Joint Injection/Aspiration Joint Injection/Aspiration Details: Procedure was explained to the patient and consent was obtained. ? The area of interest was identified and confirmed with patient. ?This was subsequently cleaned with chlorhexidine x3. ? The area was then anesthetized using ethyl chloride spray. 40 mg Kenalog with 1 cc 1% lidocaine was injected without issue. ?Minimal to no bleeding. ?Patient tolerated procedure. Primary Site: other (Right greater trochanteric bursa) Prep: site was prepped using aseptic technique and ethochloride spray was applied Injected: 40 mg of, Kenalog, with 1 mL of and 1% plain lidocaine Approach Used: other (Lateral approach) Procedure: The patient tolerated the procedure well Coding 41026 - Glenohumeral/Tronchanteric Bursa/Intraarticular Procedure code (CPT) selection complete Joint Injection/Aspiration Joint Injection/Aspiration Details: Procedure was explained to the patient and consent was obtained. ? The area of interest was identified and confirmed with patient. ?This was subsequently cleaned with chlorhexidine x3. ? The area was then anesthetized using ethyl chloride spray. 40 mg Kenalog with 1 cc 1% lidocaine was injected without issue. ?Minimal to no bleeding. ?Patient tolerated procedure. Primary Site: other (Left trochanteric bursa) Prep: site was prepped using aseptic technique and ethochloride spray was applied Injected: 40 mg of, Kenalog, with 1 mL of and 1% plain lidocaine Approach Used: other (Lateral approach) Procedure: The patient tolerated the procedure well Coding 95032 - Glenohumeral/Tronchanteric Bursa/Intraarticular Procedure code (CPT) selection complete Results Reviewed Results Reviewed: Laboratory Tests 07/20/23 09:50 WBC 11.7 H RBC 4.67 Hgb 13.9 Hct 42.9 Plt Count 313 ESR 11 Sodium 144 Potassium 3.8 Chloride 105 Carbon Dioxide 29 BUN 21 H Creatinine 0.93 AST 15 ALT 16 Assessment & Plan Assessment & Plan (1) Seronegative rheumatoid arthritis: Comment: Onset approx 2004: ankle and hand synovitis RF, CCP negative; JACK pos(1: 320 speckled) Sulfasalazine 2006 to end of 2007 - not helpful; methotrexate Started 10/13 08/14-Enbrel added 04/17- discussion surgical options for left foot 03/22-left TKR(Janelle); redo 03/22: Patient stopped Enbrel because of resp Infections; did not restart methotrexate because of nausea 01/22: leflunomide for 6 weeks but not tolerated due to diarrhea 05/23: Humira started Code(s): M06.00 - Rheumatoid arthritis without rheumatoid factor, unspecified site Category: Medical Plan: #Seronegative Erosive RA Patient with seronegative disease however her hands have evidence of seropositivity with ulnar deviation and prominent MCPs bilaterally. There is no active synovitis noted on examination today but there is concern of subclinical inflammation. While I agree that we need to stop the Humira in the setting of her lower extremity swelling and concern for possible heart failure as well as awaiting wound healing she does need to be on some form of immunosuppression. Discussed Plaquenil and patient is agreeable to start this. Labs and x-rays ordered (2) Adverse effect of other drugs, medicaments and biological substances, initial encounter: Code(s): T50.995A - Adverse effect of other drugs, medicaments and biological substances, initial encounter Plan: Potential adverse effect of her Humira causing lower extremity swelling. Concern for heart failure we will check echo (3) Subacromial bursitis of right shoulder joint: Code(s): M75.51 - Bursitis of right shoulder Category: Medical Plan: #Right Shoulder Subacromial bursitis Steroid injection given (4) Trochanteric bursitis of both hips: Code(s): M70.61 - Trochanteric bursitis, right hip; M70.62 - Trochanteric bursitis, left hip Category: Medical Plan: #Bilateral trochanteric bursitis Steroid injection given to bilateral trochanteric bursa. Plan I spent 45 minutes reviewing the record and labs, seeing the patient, discussing the treatment plan and documenting in the medical record ? Orders: Orders XR hand wrist RT Today M06.00 - Rheumatoid arthritis without rheumatoid factor, unspecified site, M79.89 - Other specified soft tissue disorders XR ankle RT min 3V Today M06.00 - Rheumatoid arthritis without rheumatoid factor, unspecified site, M79.89 - Other specified soft tissue disorders AMB Joint Injection/Aspiration Today M75.51 - Bursitis of right shoulder CA echo transthoracic complete Today M06.00 - Rheumatoid arthritis without rheumatoid factor, unspecified site, M79.89 - Other specified soft tissue disorders XR hand wrist LT Today M06.00 - Rheumatoid arthritis without rheumatoid factor, unspecified site, M79.89 - Other specified soft tissue disorders XR foot RT min 3V Today M06.00 - Rheumatoid arthritis without rheumatoid factor, unspecified site, M79.89 - Other specified soft tissue disorders XR foot LT min 3V Today M06.00 - Rheumatoid arthritis without rheumatoid factor, unspecified site, M79.89 - Other specified soft tissue disorders XR ankle LT min 3V Today M06.00 - Rheumatoid arthritis without rheumatoid factor, unspecified site, M79.89 - Other specified soft tissue disorders AMB Joint Injection/Aspiration Today M70.61 - Trochanteric bursitis, right hip, M70.62 - Trochanteric bursitis, left hip AMB Joint Injection/Aspiration Today M70.61 - Trochanteric bursitis, right hip, M70.62 - Trochanteric bursitis, left hip Medications: New hydroxychloroquine (Plaquenil) 400 mg (2 x 200 mg) PO DAILY 90 days 180 tabs 1RF M06.00 - Rheumatoid arthritis without rheumatoid factor, unspecified site Discontinued adalimumab (Humira(CF) Pen) Discontinued Reason: Doctor's Order INJECT 40MG SUBCUTANEOUSLY EVERY 2 WEEKS 2 ea 2RF M06.00 - Rheumatoid arthritis without rheumatoid factor, unspecified site Coding Level of Care Code Est Pt Level 5 (02124) Complex EM visit Add On G2211 Diagnoses Seronegative rheumatoid arthritis M06.00 Adverse effect of other drugs, medicaments and biological substances, initial encounter T50.995A Subacromial bursitis of right shoulder joint M75.51 Trochanteric bursitis of both hips M70.61; M70.62 CPT Codes Coding - Joint 7: 50563 - Glenohumeral/Tronchanteric Bursa/Intraarticular ([id number]) Coding - Joint 7: 61403 - Glenohumeral/Tronchanteric Bursa/Intraarticular ([id number]) Coding - Joint 7: 84487 - Glenohumeral/Tronchanteric Bursa/Intraarticular ([id number])
[2023-12-31 09:14] VITALS: BP 128/80; PULSE 71; O2SAT 98; BMI 31.7
== END 2023-12-31 10:22 | disposition home or self-care (01) ==
PROVIDERS: PCP Internal Medicine; Visit Provider Student in an Organized Health Care Education/Training Program
DX: M06.00 Rheumatoid arthritis without rheumatoid factor, unspecified site (principal); T50.995A Adverse effect of other drugs, medicaments and biological substances, initial encounter; M75.51 Bursitis of right shoulder; M70.61 Trochanteric bursitis, right hip; M70.62 Trochanteric bursitis, left hip
CPT/HCPCS: 20610; 99215

== ENCOUNTER 2023-12-31 09:08 | Outpatient (REF) | payer BC, SELFPAY | END 2023-12-31 09:09 | disposition home or self-care (01) | LOC: HO.XRAY 09:08 | PROVIDERS: PCP Internal Medicine; Visit Provider Student in an Organized Health Care Education/Training Program | DX: M79.89 Other specified soft tissue disorders (principal); M06.00 Rheumatoid arthritis without rheumatoid factor, unspecified site; T50.995A Adverse effect of other drugs, medicaments and biological substances, initial encounter; M75.51 Bursitis of right shoulder; M70.61 Trochanteric bursitis, right hip; M70.62 Trochanteric bursitis, left hip | CPT/HCPCS: 20610; 73110; 73130; 73610; 73630; J2003; J3301 ==

== ENCOUNTER 2024-04-07 09:52 | Outpatient (AMB) | payer BC, SELFPAY ==
--- NOTE | 2024-04-07 09:55 | A.OFFVIS_ITS ---
Vital Signs 04/07/24 09:59 Height 5 ft 5 in Weight 190 lb 14.725 oz BMI 31.8 BP 115/72 Blood Pressure Location Rt brachial Position Sitting Pulse 74 Pulse Source Pulse Oximeter Pulse Oximetry (%) 99 Oxygen Delivery Method Room Air Intake Visit Reasons: follow up Intake Note: Patient presents for a follow up. Allergies morphine Adverse Reaction (Intermediate, Verified 04/07/24 09:58) Unknown Medication List - Last Reconciled 04/07/24 by Chrissy Koo MD amlodipine 5 mg PO DAILY furosemide 20 mg PO DAILY hydroxychloroquine (Plaquenil) 400 mg (2 x 200 mg) PO DAILY 90 days lisinopril-hydrochlorothiazide 20-25 mg 1 tab PO DAILY oxycodone 5 mg PO BID PRN tramadol 50 mg PO TID PRN HPI Comments Details: Patient is a 68-year-old female with seronegative nonerosive rheumatoid arthritis and osteoarthritis of the hand who presents for follow-up Interval History: Patient last seen 12/31/23 with me. At that time she continued to complain of bilateral ankle pain and swelling which is her main complaint. She had stopped Humira due to concern for heart failure and we had started her on Plaquenil Today, She reports that she has started the Plaquenil but noted increased nausea and abdominal discomfort while taking it. She also continues to have her joint pain and prolonged morning stiffness even while on the Plaquenil and so she does not think it was effective. The bilateral greater trochanteric bursa much improved post injection. Her righ t subacromial bursa was also improved post injection but has had a return of her symptoms. She is planning to get surgery in May for her ankle. She is to have an ankle fusion. Rheumatologic History: Onset approx 2004: ankle and hand synovitis RF, CCP negative; JACK pos(1: 320 speckled) Sulfasalazine 2006 to end of 2007 - not helpful; methotrexate Started 10/13 08/14-Enbrel added 04/17- discussion surgical options for left foot 03/22-left TKR(Janelle); redo 03/22: Patient stopped Enbrel because of resp Infections; did not restart methotrexate because of nausea 01/22: leflunomide for 6 weeks but not tolerated due to diarrhea 05/23: Humira started. 12/2023 Stopped. LE swelling, concern for HF 12/2023: Started plaquenil Current Rheumatology Medication(s): Plaquenil 200 mg b.i.d. daily [facility] Medical History (Updated 04/07/24 @ 12:20 by Chrissy Koo MD) Encounter for monitoring tocilizumab therapy Long-term use of Plaquenil Trochanteric bursitis of both hips Subacromial bursitis of right shoulder joint Acquired valgus deformity of both ankles Osteoarthritis of ankle and foot Bilateral swelling of feet and ankles Swelling of ankle joint Surgical History Hx of colonoscopy H/O elbow surgery S/P bilateral breast lumpectomy History of bladder suspension procedure Hx of hysterectomy History of total knee arthroplasty H/O arthroscopy of left knee Family History Other Gout Heart disease Lung cancer Osteoarthritis Rheumatoid arthritis Stomach cancer Stroke Social History Household Members: Spouse and Children Alcohol intake: current Alcohol intake frequency: holidays/special occasions only Patient Tobacco Use Status: Never used Tobacco service: No Current occupational status: employed Review of Systems Const Details: Review of Systems Constitutional: Denies fever, chills, weight loss ENT: Denies vision changes, eye pain or eye redness, dental caries, dry mouth GI: Denies nausea, vomiting, diarrhea, abdominal pain, change in BM Pulm: Denies SOB, STEINER, hemoptysis, wheezing Cards: Denies chest pain, palpitations Skin: Denies Raynaud's, rash, nail changes, photosensitivity, [employer]NAGER: Denies headaches, weakness, paresthesias, recurrent falls MSK: as per HPI All other systems reviewed and are unremarkable except noted above Physical Exam Vital Signs: Last Vital Signs Pulse 74 04/07/24 09:59 BP 115/72 04/07/24 09:59 Pulse Ox 99 04/07/24 09:59 Oxygen Delivery Method Room Air 04/07/24 09:59 BMI result Body Mass Index 31.8 Vital signs reviewed Physical Examination CONSTITUITIONAL Patient alert and cooperative. Well appearing and in no apparent painful distress HEENT Conjunctiva and sclera clear. ?Pupils equal round and reactive to light. ?No lymphadenopathy. ? CHEST/RESPIRATORY SYSTEM Normal respiratory effort and able to speak in complete sentences. ?Clear to auscultation bilaterally. ?No crackles, rales, rhonchi, wheezes heard. CARDIAC SYSTEM Regular rate and rhythm. ?S1 and S2 heard no murmurs. ?Radial pulses intact bilaterally MSK Hands: ?Good brick pitcher strength bilaterally. No deformities noted. ?Mild swelling noted to the fingers. Tenderness to palpation of the MCPs throughout. Wrists: ?Full range of motion at the wrists without pain. ?No tenderness to palpation or synovitis noted to the wrists. Elbows: Full range of motion without pain. No tenderness, weakness, swelling, increased warmth or erythema. Shoulders: Full range of motion. Active range of motion with pain more so on the right than the left. Tenderness to palpation of the right subacromial bursa. Mild tenderness to palpation of the left subacromial bursa as well. Hips: Full range of motion without pain. Hip bursa: No tenderness to palpation Knees: ?Full range of motion. ?Bilateral crepitations felt. Tenderness to palpation of the left pes anserine bursa Ankles: Swelling noted to bilateral ankles more so on the left with tenderness to palpation of the lateral malleoli. Feet: ?Negative squeeze test. ?No tenderness to palpation or swelling of the MTPs. Tender points:?No tenderness to palpation of the bilateral trapezius, supraspinatus, greater trochanters, anterior costochondral junctions, bilateral gluteal areas, bilateral suboccipital muscle insertions SKIN Skin intact without rashes. Office Procedures AMB Joint Injection/Aspiration Joint Injection/Aspiration Details: Procedure was explained to the patient and consent was obtained. ? The area of interest was identified and confirmed with patient. ?This was subsequently cleaned with chlorhexidine x3. ? The area was then anesthetized using ethyl chloride spray. 40 mg Kenalog with 1 cc 1% lidocaine was injected without issue. ?Minimal to no bleeding. ?Patient tolerated procedure. Primary Site: right shoulder (Right subacromial bursa) Coding 29079 - Glenohumeral/Tronchanteric Bursa/Intraarticular Procedure code (CPT) selection complete Office Meds lidocaine (PF) 10 mg/mL (1 %) injection solution Performing Provider: Chrissy Koo MD Performing Location: [facility] Rheumatology Administered by: Chrissy Koo MD on 04/07/24 12:57 Dose Route Admin Location Dispensed Lot Number Expiration Date [facility] Print Line Tailer 10 mg Infiltration Right subacromial bursa 2 mL [id number] 06/06/26 51249-542-24 [employer] Kenalog 40 mg/mL suspension for injection Performing Provider: Chrissy Koo MD Performing Location: [facility] Rheumatology Administered by: Chrissy Koo MD on 04/07/24 12:57 Dose Route Admin Location Dispensed Lot Number Expiration Date [facility] Print Line [employer]er 40 mg intrabursal Right subacromial bursa 1 mL [id number] 09/05/25 [address]-1 [employer] Results Reviewed Results Reviewed: Laboratory Tests 04/27/22 07/20/23 08:54 09:50 WBC 11.7 H RBC 4.67 Hgb 13.9 Hct 42.9 Plt Count 313 ESR 11 Sodium 144 Potassium 3.8 Chloride 105 Carbon Dioxide 29 BUN 21 H Creatinine 0.93 AST 15 ALT 16 Alkaline Phosphatase 55 C-Reactive Protein 0.17 Cycl Citrul Peptide IgG <16 XR Bilateral Hands/Wrists 12/2023 FINDINGS (right hand): Diffuse demineralization. Ulnar-minus variance. Narrowing of the radiocarpal space. Severe degenerative changes in the first carpometacarpal joint with loss of the joint space and abundant hypertrophic changes as well as subluxation. Moderate degenerative changes in the metacarpal phalangeal joints. Moderate degenerative changes in the IP joints, particularly notable in the fourth and fifth DIP joints. FINDINGS (left hand): Diffuse demineralization. Ulnar minus variance. Narrowing of the radiocarpal space. Mahazliy-ir-lbhdyr degenerative changes in the first carpometacarpal joint with loss of the joint space and abundant hypertrophic change. Moderate degenerative changes in the metacarpal phalangeal joints. Moderate degenerative changes in the IP joints. XR Bilateral Ankles/Feet 12/2023 FINDINGS (left ankle): Prominent soft tissue swelling. Marginal osteophytes and nonuniform joint space narrowing of the talocrural joint. Extensive degenerative changes of the subtalar joints. Increased ossification posteriorly likely reflects loose body or bone fragmentation. Arthrosis of the talonavicular joint. Calcaneal spur. Calcification is ossification of the soft tissues of the distal lower leg FINDINGS (right ankle): There is a radiodense line through the lateral malleolus concerning for possible subtle nondisplaced fracture indeterminant age. There are degenerative osteoarthritic changes. No fracture. There is soft tissue swelling around lateral malleolus. FINDINGS (left foot): Pes planus. Large plantar calcaneal spur. Diffuse demineralization. Incompletely imaged possible bandage overlying partially imaged anterior distal aspect of the lower LEFT leg. Severe degenerative changes in the second metatarsophalangeal joint with flattening and deformity of the subjacent articular surfaces. Vhqgxeux-xb-xvgdhu degenerative changes in the first metatarsophalangeal joint with joint space narrowing and hypertrophic change. Degenerative changes in the tarsometatarsal joints. Moderate degenerative changes in the second metatarsophalangeal joint. Moderate degenerative changes in the midfoot. FINDINGS (right foot): Btdclsug-ri-ofkpxf degenerative changes in the first metatarsophalangeal joint with joint space narrowing and hypertrophic change. The second, third, fourth and fifth toes are flexed, limiting evaluation. Degenerative changes in the tarsometatarsal joints. Moderate degenerative changes in the second metatarsophalangeal joint. Moderate degenerative changes in the midfoot. Pes planus. Large plantar calcaneal spur Assessment & Plan Assessment & Plan (1) Seronegative rheumatoid arthritis: Comment: Onset approx 2004: ankle and hand synovitis RF, CCP negative; JACK pos(1: 320 speckled) Sulfasalazine 2006 to end of 2007 - not helpful; methotrexate Started 10/13 08/14-Enbrel added 04/17- discussion surgical options for left foot 03/22-left TKR(Janelle); redo 03/22: Patient stopped Enbrel because of resp Infections; did not restart methotrexate because of nausea 01/22: leflunomide for 6 weeks but not tolerated due to diarrhea 05/23: Humira started - stopped due to concerns for HF 12/2023: Plaquenil started. Stopped due to ineffectiveness and nausea Code(s): M06.00 - Rheumatoid arthritis without rheumatoid factor, unspecified site Category: Medical Plan: #Seronegative rheumatoid arthritis Patient is a 68-year-old female with seronegative rheumatoid arthritis that is currently not in remission. Patient has failed or not tolerated several medications in the past and she is currently in a flare of her disease as evidenced by synovitis involving the MCPs and scattered PIPs today. Given her significant cardiac history I do not think she is a candidate for CHAIM inhibitors. The next medication to attempt is IL 6 inhibition. We will try Actemra. Plan - Stop plaquenil - Start Actemra 162mg SC every other week - No labs today - RTC 4 months - Labs prior to next visit: CBC, CMP, ESR, CRP, hepatitis panel, T spot, lipid panel (2) Subacromial bursitis of right shoulder joint: Code(s): M75.51 - Bursitis of right shoulder Category: Medical Plan: #Right shoulder subacromial bursitis Patient with tenderness to palpation of the right subacromial bursa. Now status post injection. (3) Pre-op evaluation: Code(s): Z01.818 - Encounter for other preprocedural examination Plan: #Pre Op evaluation Patient is going for fusion of her left ankle in May. At this time there is no contraindication to proceeding with surgery from a rheumatologic standpoint She will start the Actemra Informed patient that she should time her Actemra so that the week of her surgery is the week that she would be due the Actemra and this should further be held for another 2 weeks after surgery. Patient can receive small dose of prednisone if she does have a significant flare of her disease in the perioperative period (4) Pes anserinus bursitis of left knee: Code(s): M70.52 - Other bursitis of knee, left knee Plan: #Pes anserine bursitis of the left knee Patient is status post total knee replacement and revision of the left knee. Now complaining of medial pain to the left knee. Tenderness to palpation of the pes anserine bursa location all consistent with pes anserine bursitis. At this time recommended stretching. Pamphlet given. In the future patient can receive a steroid injection but I discussed with her that the tight medial thigh muscles we will cause a recurrence of this and so stretching is the best way to move forward. 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 ? Benefits include decreased pain, improved mortality, improved quality of life Risks include LFT abnormalities, elevated triglycerides, GI perforations Contraindicated in a patient with history of diverticulitis Monitoring: ?CBC, CMP, triglycerides Plan I spent 40 minutes reviewing the record and labs, taking a history, examining the patient, discussing the treatment plan and documenting in the medical record Orders: Orders Lipid Panel 4 Months M06.00 - Rheumatoid arthritis without rheumatoid factor, unspecified site Complete Blood Count Auto Diff 4 Months M06.00 - Rheumatoid arthritis without rheumatoid factor, unspecified site Comprehensive Met. Panel 4 Months M06.00 - Rheumatoid arthritis without rheumatoid factor, unspecified site C Reactive Protein 4 Months M06.00 - Rheumatoid arthritis without rheumatoid factor, unspecified site Erythrocyte Sedimentation Rate 4 Months M06.00 - Rheumatoid arthritis without rheumatoid factor, unspecified site Hepatitis A,B,C Profile 4 Months M06.00 - Rheumatoid arthritis without rheumatoid factor, unspecified site T Spot TB 4 Months M06.00 - Rheumatoid arthritis without rheumatoid factor, unspecified site AMB Joint Injection/Aspiration Today M75.51 - Bursitis of right shoulder Medications: New tocilizumab (Actemra ACTPen) 162 mg (0.9 mL) subcut Q2W 1.8 mL 5RF M06.00 - Rheumatoid arthritis without rheumatoid factor, unspecified site Discontinued hydroxychloroquine (Plaquenil) Discontinued Reason: Doctor's Order 400 mg (2 x 200 mg) PO DAILY 90 days 180 tabs 1RF M06.00 - Rheumatoid arthritis without rheumatoid factor, unspecified site Coding Level of Care Code Est Pt Level 5 (47285) Complex EM visit Add On G2211 Diagnoses Seronegative rheumatoid arthritis M06.00 Subacromial bursitis of right shoulder joint M75.51 Pre-op evaluation Z01.818 Pes anserinus bursitis of left knee M70.52 Encounter for monitoring tocilizumab therapy Z51.81; Z79.620 CPT Codes Coding - Joint 7: 14874 - Glenohumeral/Tronchanteric Bursa/Intraarticular ([id number])
[2024-04-07 09:59] VITALS: BP 115/72; PULSE 74; O2SAT 99; BMI 31.8
--- OUTSIDE RECORDS SUMMARY | 2024-04-07 10:30 | XMS_ITS | Clinical Summary ---
Author Organization [facility] Address [address] [place], [place] [id number] Care Team Providers Care Peoplesoft H[employer] Developer Name Role Phone Nette Orozco MD Primary Care Prov ider Allergies Active Allergy Reactions Criticality Noted Date Comments Morphine Nausea And Vomiting 07/18/2019 Medications Medication Sig Dispensed Refills Start Date End Date Status oxyCODONE-acetaminoph en (PERCOCET) 5-325 MG per tablet Take 1 tablet by mouth every 4 (four) hours as needed for pain. 12 tablet 0 04/01/2022 Active Humira Pen 40 MG/0.4ML prefilled pen injector 0 03/17/2022 Active hydrOXYzine (ATARAX) 10 MG tablet TAKE 1 TO 2 TABLETS BY MOUTH AT BEDTIME NEEDED FOR ANXIETY FOR UP TO 360 DAYS 0 01/08/2022 Active lisinopril-hydroCHLOR Othiazide (PRINZIDE,ZESTORETIC) tablet 20-25 mg 0 01/08/2022 Active valsartan-hydroCHLORO thiazide (DIOVAN HCT) tablet 160-25 mg Take 1 tablet by mouth daily. 0 04/07/2022 Active traMADol (ULTRAM) 50 MG tablet Take 50 mg by mouth every 6 (six) hours as needed for pain. 0 Active Active Problems No known active problems Family History Medical History Relation Name Comments Cancer Father Hypertension Father Cancer Mother Relation Name Status Comments Father Mother Social History Tobacco Use Types Packs/Day Years Used Date Smoking Tobacco: Never Assessed Sex and Gender Information Value Date Recorded Sex Assigned at Female 03/31/2022 10:48 PM EST Gender Identity Not on file Sexual Orientation Not on file Job Start Date Occupation Industry Not on file Not on file Not on file Last Filed Vital Signs Vital Sign Reading Time Taken Comments Blood Pressure 196/100 04/01/2022 12:35 AM EST Pulse 70 04/01/2022 12:35 AM EST Temperature 36.7 ??C (98.1 ??F) 04/01/2022 12:[address] Respiratory Rate 17 04/01/2022 12:35 AM EST Oxygen Saturation 96% 04/01/2022 12:35 AM EST Inhaled Oxygen Concentration - - Weight 95.3 kg (210 lb) 04/14/2022 8:35 AM EST Height 165.1 cm (5' 5 ) 04/14/2022 8:35 AM EST Body Mass Index 34.95 04/14/2022 8:35 AM EST Plan of Treatment Health Maintenance Due Date Last Done Comments Hepatitis C Screening 1954 Depression Screening 1966 BMI Counseling 1972 Preventative Health Evaluation 1972 Colon Cancer Screening (Colonoscopy) 11/17/1999 Breast Cancer Screening (Mammogram) 2004 Shingrix-Zoster Vaccine (1 of 2) 2004 Fall Risk Assessment 11/17/2019 Osteoporosis Screening (DEXA Scan) 11/17/2019 DTap / Tdap / Td (2 - Td or Tdap) 09/01/2023 08/31/2013 COVID-19 Vaccine (4 - season) 2023 01/10/2021, 05/22/2020, 04/30/2020 Influenza Vaccine (#1) 2023 , 02/15/2020, 03/10/2019, Additional history exists Pneumococcal Vaccine (3 of 3 - PPSV23 or PCV20) 06/13/2025 06/13/2020, 11/26/2008 RSV Adult > 60+ Yrs or (1 - 1-dose 75+ series) 2029 Hepatitis B Vaccines Aged Out No long er eligible based on patient's age to complete this topic RSV Ped < 20 months Aged Out No longe r eligible based on patient's age to complete this topic Care Teams [employer] H[employer] Developer Relationship Specialty Start Date End Date Nette Orozco MD PCP - General Internal Medicine 04/10/22
--- OUTSIDE RECORDS SUMMARY | 2024-04-07 10:30 | XMS_ITS ---
Author Name [facility] Organization Unknown History of Medication Use Medication Directions Dispensed Refills Start Date End Date Stat No known medications No known medications active Problems Problem Status Onset Date Problem Type Date of Resoluti on Source Arthritis of left subtalar joint active EncounterDiagnosisAct [facility] T
--- OUTSIDE RECORDS SUMMARY | 2024-04-07 10:30 | XMS_ITS | Encounter Summary ---
Author Organization [facility] Address [address] [place] [address] Care Team Providers Care Community Mental Health Worker Name Role Phone Nette Orozco MD Primary Care Pr ovider Reason for Visit * Reason Comments Follow-up Encounter Details Date Type Department Care Team (Latest Contact Info) Description 04/04/2024 10:00 AM EST [facility] [address] [place] [address] Rosa Serna, SCOTTIE [address] [address] Arthritis of left subtalar joint (Primary Dx); Osteoarthritis of left ankle, unspecified osteoarthritis type Social History Tobacco Use Types Packs/Day Years Used Date Smoking Tobacco: Never Assessed Sex and Gender Information Value Date Recorded Sex Assigned at Not on file Gender Identity Not on file Sexual Orientation Not on file documented as of this encounter Progress Notes * Rosa Serna APRN - 04/04/2024 10:00 AM EST Images from the original note were not included. [id number] [facility] [address] [id number] Encounter Date: 04/04/2024 1. Arthritis of left subtalar joint 2. Osteoarthritis of left ankle, unspecified osteoarthritis type Assessment & Plan Assessment: Follow-up for left tibiotalar and left subtalar arthritis, ready to schedule a surgicaldate. Plan: The patient will follow-up again in approximately [address] Morris to touch base again regarding her left TTC fusion and VARUN. She would like to have surgery end of April so that sheis feeling good enough to go on her trip to [place] end of October 6 months postop. History of Present Illness: Swati Chang is a 68 y.o. female who presents today for left tibiotalar and left subtalar arthritis follow-up. Chief Complaint Patient presents with Left Ankle - Follow-up Swati was last seen by Dr. Morris on 02/22/2024 where they went over her CT scan and discussed surgical intervention for her left ankle arthritis. He has highly recommended a TTC fusion with a VARUN.She comes in today stating that she would like to schedule a surgical date and we are booking out to the end of April at this point. Her goal is to be pain-free for her trip to [place] at the [facility] October. I have recommended that she touch base with Dr. Morris 1 more time prior to her surgery end of April which will be done at [facility]. I have also recommended that she get a preop mobility assessment since she will be nonweightbearing for 6 weeks. She reports that she has also been wearing compression socks regularly which has been helpful, however the lymphedematreatment center is too far away for her to travel to so she has not gone there per Dr. Morris's request. Denies radiation of pain, tenderness, numbness, or tingling. Physical Exam Well appearing female in no apparent distress, alert and oriented x 3, antalgic gait. Skin is intact without erythema or ecchymosis. Generalized bilateral lower extremity lymphedema appreciated. Tenderness to palpation about the sinus Tarsi and tibiotalar joint on the left ankle, calf is soft and non tender. Rigid valgus alignment appreciated. Little to no ROM of the left ankle and subtalar joint. Distal sensation intact with brisk capillary refill noted. Dorsalis pedis pulse 2+ bilaterally. Procedure None Imaging None today Review of Systems See HPI Rosa Serna APRN documented in this encounter Plan of Treatment Upcoming Encounters Date Type Department Care Team (Late st Contact Info) Description 05/02/2024 2:15 PM EST Office Visit [facility] [address] [place] [address] Bin Morris MD [address] [place] [address] documented as of this encounter Visit Diagnoses Diagnosis Arthritis of left subtalar joint- Primary Osteoarthritis of left ankle, unspecified osteoarthritis type documented in this encounter Care Teams Community Mental Health Worker Relationship Specialty Start Date End Date Nette Orozco MD [address] [place] [id number] PCP - General Internal Medicine 01/18/24 documented as of this encounter
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
--- OUTSIDE RECORDS SUMMARY | 2024-04-07 10:30 | XMS_ITS | Encounter Summary ---
Author Organization [facility] Address [address] [place] [address] Care Team Providers Care Crm Manager Name Role Phone Nette Orozco MD Primary Care Prov ider Reason for Referral * Consultation (Routine) - Pending Review Specialty Diagnoses / Procedures Referred By Jay finney Referred To Contact Physical Therapy Diagnoses Lymphedema Nette Orozco MD [address] [place] [address] Referral ID Status Reason Start Date Expiration Date Visits Requested Visits Authorized [id number] Pending Review Specialty Services Required 03/09/2024 03/09/2025 1 1 Reason for Visit * Reason Comments Rheumatoid Arthritis Hypertension Pain Diabetes Encounter Details Date Type Department Care Team (Latest Contact Info) Description 03/09/2024 9:30 AM EST Office Visit Adult Medicine - [place] [address] [place] [address] Nette Orozco MD [address] [place], [place] Osteoarthritis of both knees, unspecified osteoarthritis type (Primary Dx); Seronegative rheumatoid arthritis (CMS/HCC); Lymphedema Social History Tobacco Use Types Packs/Day Years [...] file Not on file Not on file documented as of this encounter Last Filed Vital Signs Vital Sign Reading Time Taken Comments Blood Pressure 116/69 03/09/2024 9:38 AM EST Pulse 64 03/09/2024 9:38 AM EST Temperature 36.4 ??C (97.6 ??F) 03/09/2024 9:38 AM ES T Respiratory Rate - - Oxygen Saturation - - Inhaled Oxygen Concentration - - Weight 87.6 kg (193 lb 3.2 oz) 03/09/2024 9:38 A M EST Height - - Body Mass Index 32.15 12/13/2023 9:57 AM EDT documented in this encounter Ordered Prescriptions Prescription Sig Dispensed Refills Start Date End Da te traMADoL (ULTRAM) 50 mg tablet Take 1 tablet (50 mg total) by mouth 3 (three) times a day. AND 1-2 TABLETS AT BEDTIME Max Daily Amount: 150 mg 84 tablet 03/09/2024 oxyCODONE (ROXICODONE) 10 mg immediate release tablet Take 1 tablet (10 mg total) by mouth at bedtime. Max Daily Amount: 10 mg 28 tablet 03/09/2024 04/08/2024 documented in this encounter Progress Notes * Nette Orozco MD - 03/09/2024 9:30 AM EST CHIEF COMPLAINT: Rheumatoid Arthritis, Hypertension, Pain, and Diabetes IDENTIFIER: Swati Chang is a 68 y.o. old female. 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 She presents alone. Today she says that she continues to have aches and pains. She has adequate pain management with the regimens that she is on. She has had significant foot problems but now has to see an orthopedic surgeon as the issue is morecomplicated because of her underlying rheumatoid arthritis We reviewed her medications. Healthcare maintenance issues addressed Still having problems with the lymphedema ROS: See HPI PAST MEDICAL HISTORY: Patient Active Problem List Diagnosis Date Noted Severe obesity (BMI 35.0-35.9 with comorbidity) ([facility]) 01/11/2024 Spondylosis of lumbar region without myelopathy or radiculopathy 01/15/2023 Hyperlipidemia 11/13/2021 DJD (degenerative joint disease) 09/26/2020 Endometrial cancer, grade I ([facility]) 08/29/2019 CKD (chronic kidney disease) stage 3, GFR 30-59 ml/min ([facility]) 11/02/2018 Osteoarthritis of hands, bilateral 11/02/2018 Primary osteoarthritis of both first carpometacarpal joints 11/01/2018 Essential hypertension 12/02/2016 Osteoarthritis of both knees 07/07/2012 Radiculitis, lumbosacral 08/25/2010 Spinal stenosis, lumbar 08/25/2010 Full thickness rotator cuff tear 07/18/2010 Stress 04/17/2009 Right foot pain 04/16/2009 Seronegative rheumatoid arthritis ([facility]) 12/05/2007 Benign essential hypertension 10/21/2006 Esophageal reflux 07/16/2006 Hematuria 07/16/2006 Lumbago 07/16/2006 Urge urinary incontinence 07/16/2006 SOCIAL HISTORY: Social History Tobacco Use Smoking status: Never Smokeless tobacco: Never Substance Use Topics Alcohol use: Yes FAMILY HISTORY: Family Status Relation Name Status Father Mother (Not Specified) No partnership data on file Family History Problem Relation Name Age of Onset CABG Father Stroke Father Arthritis Mother Heart attack Mother ACTIVE MEDICATIONS: Outpatient Medications Marked as Taking for the 03/09/24 encounter (Office Visit) with Nette Orozco MD Medication Sig Dispense Refill furosemide (LASIX) 20 mg tablet TAKE 1 TABLET BY MOUTH DAILY 30 tablet 0 hydrOXYzine HCL (ATARAX) 10 mg tablet TAKE 1 TO 2 TABLETS BY MOUTH AT BEDTIME NEEDED FOR ANXIETYFOR UP TO 360 DAYS lisinopril-hydroCHLOROthiazide (PRINZIDE,ZESTORETIC) 20-25 mg per tablet Take 1 tablet by mouth 1 (one) time each day. 90 tablet 1 oxyCODONE (ROXICODONE) 10 mg immediate release tablet Take 1 tablet (10 mg total) by mouth at bedtime. Max Daily Amount: 10 mg 28 tablet 0 traMADoL (ULTRAM) 50 mg tablet Take 1 tablet (50 mg total) by mouth 3 (three) times a day. AND 1-2 TABLETS AT BEDTIME Max Daily Amount: 150 mg 84 tablet 0 [DISCONTINUED] oxyCODONE (ROXICODONE) 10 mg immediate release tablet Take 1 tablet (10 mg total) bymouth at bedtime. Max Daily Amount: 10 mg 28 tablet 0 [DISCONTINUED] traMADoL (ULTRAM) 50 mg tablet Take 1 tablet (50 mg total) by mouth 3 (three) times a day. AND 1-2 TABLETS AT BEDTIME Max Daily Amount: 150 mg 84 tablet 0 ALLERGIES: Morphine and Other PHYSICAL EXAM: Blood pressure 116/69, pulse 64, temperature 36.4 ??C (97.6 ??F), temperature source Temporal, weight 87.6 kg (193 lb 3.2 oz). Body mass index is 32.15 kg/m??. Plan is deferred because the patient isaged 65 or older and a weight gain/reduction plan would complicate other health conditions APPEARANCE: Alert and in no acute distress EYES: PERRLA, conjunctiva and sclera normal EARS: External ears normal. Canals clear. TMs normal. NOSE/SINUS: Nares normal. Septum midline. Mucosa normal. No drainage or sinus tenderness MOUTH/THROAT: no erythema, lesions, or exudates NECK: Neck supple, no adenopathy, thyroid symmetric and of normal size HEART: RRR with normal S1 and S2, no murmurs, no gallops, no JVD appreciated LUNG: clear to auscultation bilaterally LYMPH NODES: grossly normal EXTREMITIES: Bilateral nonpitting edema with varicose veins left greater than right LABS: No labs done today IMPRESSION: 1. Osteoarthritis of both knees, unspecified osteoarthritis type 2. Seronegative rheumatoid arthritis (CMS/HCC) 3. Lymphedema PLAN: Rheumatoid arthritis with bilateral joint involvement on opiate analgesics We reviewed and renewed her medications Lymphedema Will refer patient to lymphedema clinic She will follow-up with the podiatry and orthopedics in terms of her foot issues they are thinking of ankle fusion Healthcare maintenance issues addressed Return to the office in 3 months or as needed Orders Placed This Encounter Procedures Ambulatory referral to Physical Therapy and Athletic Training ADDITIONAL ORDERS: AMB REFERRAL TO PHYSICAL THERAPY AND ATHLETIC TRAINING Nette Orozco MD on 03/09/2024 at 12:31 PM EST documented in this encounter Plan of Treatment Upcoming Encounters Date Type Department Care Team (Late st Contact Info) Description 06/02/2024 9:40 AM EDT Appointment Radiology Department - [address] [address] 06/12/2024 9:30 AM EDT Office Visit Adult Medicine - [place] [address] [place] [address] Nette Orozco MD [address] [place] [address] 07/14/2024 9:30 AM EDT Office Visit Vascular Surgery - [place] [address] [place] [address] Kadie Barros PA [address] [place] [address] Scheduled Referrals Name Type Priority Associated Diagnoses Order Schedule Ambulatory referral to Physical Therapy and Athletic Training Outpatient Referral Routine Lymphedema 1 Occurrences starting 03/09/2024 until 03/09/2025 documented as of this encounter Visit Diagnoses Diagnosis Osteoarthritis of both knees, unspecified osteoarthritis type- Primary Seronegative rheumatoid arthritis ([facility]/HCC) Rheumatoid arthritis Lymphedema Other noninfectious lymphedema Encounter for screening mammogram for breast cancer documented in this encounter Discontinued Medications Medication Sig Discontinue Reason Start Date End Da te traMADoL (ULTRAM) 50 mg tablet Take 1 tablet (50 mg total) by mouth 3 (three) times a day. AND 1-2 TABLETS AT BEDTIME Max Daily Amount: 150 mg Reorder 02/10/2024 03/09/2024 oxyCODONE (ROXICODONE) 10 mg immediate release tablet Take 1 tablet (10 mg total) by mouth at bedtime. Max Daily Amount: 10 mg Reorder 02/21/2024 03/09/2024 adalimumab (Humira,CF, Pen) 40 mg/0.4 mL pen Inject 40 mg into the skin every 14 days. Formulary change 03/05/2021 03/09/2024 documented as of this encounter Care Teams Crm Manager Relationship Specialty Start Date End Date Nette Orozco MD [address] [place] [id number] PCP - General Internal Medicine 02/15/24 documented as of this encounter
--- OUTSIDE RECORDS SUMMARY | 2024-04-07 10:30 | XMS_ITS | Encounter Summary ---
Author Organization [facility] Address [address] [place] [address] Care Team Providers Care Vacuum Frame Operator Name Role Phone Nette Orozco MD Primary Care Prov ider Reason for Visit * Reason Comments Follow-up Encounter Details Date Type Department Care Team (Late st Contact Info) Description 03/17/2024 10:00 AM EST Office Visit Vascular Surgery - [place] [address] [place] [phone] Kadie Barros PA [address] [place] [address] Varicose veins of bilateral lower extremities with pain (Primary Dx) Social History Tobacco Use Types Packs/Day Years [...] Pulse 65 03/17/2024 9:57 AM EST Temperature - - Respiratory Rate - - Oxygen Saturation - - Inhaled Oxygen Concentration - - Weight 87.1 kg (192 lb) 03/17/2024 9:57 AM EST Height 165.1 cm (5' 5 ) 03/17/2024 9:57 AM EST Body Mass Index 31.95 03/17/2024 9:57 AM EST documented in this encounter Progress Notes * Nat Morris MA - 03/17/2024 10:00 AM EST Lower Extremity Venous Duplex for Venous Insufficiency-02/15/2024 Right: No venous thrombus in the right lower extremity. No reflux in the deep veins of the right lower extremity. Right SSV has significant reflux. Right GSV has no reflux. Left: No venous thrombus in the left lower extremity. The left popliteal vein has significant reflux. A calf branch of left GSV and a branch of left SSV have reflux. Left calf subcutaneous edema is noted. Lower Venous Extremity Findings Right Lower Venous The common femoral, femoral, [...] performed with the patient in reverse trendelenburg. Right Lower Venous Measurements Vein Diam Reflux Time GSV Junction 0.62 cm GSV Thigh Prox 0.51 cm GSV Thigh Mid 0.38 cm GSV At Knee 0.27 cm GSV Below Knee Prox 0.29 cm GSV Below Knee Dist 0.28 cm SSV Junction 0.43 cm 2,967 ms SSV Prox 0.37 cm SSV Mid 0.35 cm Left Lower Venous Measurements Vein Diam Reflux Time GSV Junction 0.85 cm GSV Thigh Prox 0.52 cm GSV Thigh Mid 0.42 cm GSV At Knee 0.46 cm GSV Below Knee Prox 0.44 cm GSV Below Knee Dist 0.36 cm SSV Junction 0.47 cm SSV Prox 0.5 cm SSV Mid 0.47 cm Pop 2,978 ms * WILDER Bloom - 03/17/2024 10:00 AM EST PATIENT: Swati Chang ENCOUNTER: 03/17/2024 EMRN: [id number] : 1955 PCP: Nette Orozco MD CHIEF COMPLAINT: Follow-up HPI: This 68 y.o. female presents for follow up varicose veins. Patient has a history of HTN, obesity, seronegative rheumatoid arthritis on Humira, osteoarthritis of both knees, s/p left knee replacement x2, CKD stage 3, HLD. At initial consult in December 2023, she was reporting varicose veins on calvesand thighs that result in daily heaviness and pain. Left leg is worse. She has swelling that develops throughout the day up to the knee. She had compression stockings, but was not using them at that time due to difficulty getting them on. 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 She denies history of previous vein procedures. No history of venous ulcers. No history of DVT. She has had 2 full-term pregnancies. She is a non-smoker. Patient reports she continues to find the compression stockings hard to get on, however does wear them when she is at work. She has noticed some improvement with regular use of compression. She ordered a new style to see if will be easier to don. Her left leg continues to be worse than the right. She is supposed to have left foot surgery in the coming months (?end of May). PAST MEDICAL HISTORY: Patient Active Problem List Diagnosis Osteoarthritis of both knees Benign essential hypertension Essential hypertension CKD (chronic kidney disease) stage 3, GFR 30-59 ml/min (CMS/HCC) DJD (degenerative joint disease) Endometrial cancer, grade I (CMS/HCC) Esophageal reflux Full thickness rotator cuff tear Hematuria Hyperlipidemia Lumbago Osteoarthritis of hands, bilateral Primary osteoarthritis of both first carpometacarpal joints Radiculitis, lumbosacral Right foot pain Seronegative rheumatoid arthritis (CMS/HCC) Spinal stenosis, lumbar Spondylosis of lumbar region without myelopathy or radiculopathy Stress Urge urinary incontinence Severe obesity (BMI 35.0-35.9 with comorbidity) (CMS/HCC) PAST SURGICAL HISTORY: Past Surgical History: Procedure Laterality Date BLADDER SUSPENSION 03/08/2005 PROCEDURE: HISTORICAL BLADDER SUSPENSION; COMMENT: Dr. Arias BREAST LUMPECTOMY Right 03/08/1982 PROCEDURE: HISTORICAL BREAST LUMPECTOMY; COMMENT: benign BREAST LUMPECTOMY Left 03/08/2004 PROCEDURE: HISTORICAL BREAST LUMPECTOMY; COMMENT: benign ELBOW SURGERY Right 2002, 2006 PROCEDURE: HISTORICAL ELBOW SURGERY; COMMENT: Dr. Braun- ulnar nerve transposition and tennis elbow KNEE SURGERY Left 03/08/2005 PROCEDURE: HISTORICAL KNEE SURGERY; COMMENT: meniscal injury - Dr. Garza TOTAL KNEE ARTHROPLASTY Left 04/08/2014 PROCEDURE: HISTORICAL TOTAL KNEE REPLACE; COMMENT: Dr. Man MEDICATIONS: Outpatient Medications Marked as Taking for the 03/17/24 encounter (Office Visit) with WILDER Bloom Medication Sig Dispense Refill furosemide (LASIX) 20 [...] Amount: 150 mg 84 tablet 0 ALLERGIES: Allergies Allergen Reactions Morphine Nausea And Vomiting Other Seasonal allergies SOCIAL HISTORY: Social History Tobacco Use Smoking status: Never Smokeless tobacco: Never Substance Use Topics Alcohol use: Yes Drug use: Not Currently FAMILY HISTORY: Family History Problem Relation Name Age of Onset CABG Father Stroke Father Arthritis Mother Heart attack Mother ROS: GENERAL: No malaise, significant weight loss or fever NECK: No lumps, goiter, pain or significant neck swelling RESPIRATORY: No cough, wheezing or shortness of breath CARDIAC: No chest pain or palpitations GI: No abdominal discomfort MUSCULOSKELETAL: SEE HPI SKIN: No lesions, rash or itching NEURO: No persistent headache, syncope, seizures, weakness or numbness VASCULAR: SEE HPI PHYSICAL EXAM: Vitals: 03/17/24 0957 BP: 110/72 BP Location: Left arm Patient Position: Sitting Pulse: 65 Weight: 87.1 kg (192 lb) Height: 1.651 m (65 ) General: Alert and oriented x 3, no acute distress, well-nourished HEENT: Normocephalic atraumatic Neck: No JVD Chest: Respiratory effort normal Cardiac: Regular rate rhythm Abdomen: Soft, nontender, nondistended Extremity: -Right lower extremity: 2+ DP and PT pulses palpable. No ulcers or gangrene. Reticular veins to calf and thigh. No hyperpigmentation. No induration or inflammation. Mild ankle edema. -Left lower extremity: 2+ DP and PT pulses palpable. No ulcers or gangrene. Varicosities noted to right calf. Hyperpigmentation to ankle. No induration or inflammation. + edema. Integumentary: No wounds Neuro: Grossly intact IMAGING STUDIES: Lower Extremity Venous Duplex for Venous Insufficiency-02/15/2024 Right: No venous thrombus in the right lower extremity. No reflux in the deep veins of the right lower extremity. Right SSV has significant reflux. Right GSV has no reflux. Left: No venous thrombus in the left lower extremity. The left popliteal vein has significant reflux. A calf branch of left GSV and a branch of left SSV have reflux. Left calf subcutaneous edema is noted. ASSESSMENT: 1. Varicose veins of bilateral lower extremities with pain PLAN: 68 y.o. female with bilateral lower extremity varicose veins associated with pain. We reviewed venous reflux studies from 02/15/24. Right lower extremity with significant reflux of SSV. Left lower extremity with significant reflux of popliteal vein and branches of GSV and SSV. We discussed possibleintervention such as ablation and microphlebectomies including risks, benefits and anticipated recovery. She is interested in intervention of the left lower extremity given that it is more symptomatic however given that she is planning to have left foot surgery in the coming months she would like to wait. We discussed following up in the office after her foot surgery in ~4 months, or sooner if needed. She is in agreement with this plan. We discussed the natural pathophysiology of venous disease. I spent 31 minutes in an encounter withthis patient, including time spent with patient, chart review, reviewing diagnostic studies, and documentation. fo documented in this encounter Plan of Treatment Upcoming Encounters Date Type Department Care Team (Late st Contact Info) Description 06/02/2024 9:40 AM EDT Appointment Radiology Department - [address] [address] 06/12/2024 9:30 AM EDT Office Visit Adult Medicine - [place] [address] [place] [address] Nette Orozco MD [address] [place] [address] 07/14/2024 9:30 AM EDT Office Visit Vascular Surgery - [place] [address] [place] [address] Kadie Barros PA [address] [place] [address] documented as of this encounter Visit Diagnoses Diagnosis Varicose veins of bilateral lower extremities with pain- Primary Encounter for screening mammogram for breast cancer documented in this encounter Historical Medications * This list may reflect changes made after this encounter. Medication Sig Dispensed Refills Start Date End Date hydroxychloroquine (PLAQUENIL) 200 mg tablet Take 2 tablets (400 mg total) by mouth 1 (one) time each day. added in this encounter Care Teams Vacuum Frame Operator Relationship Specialty Start Date End Date Nette Orozco MD [address] [place] [address] PCP - General Internal Medicine 02/15/24 documented as of this encounter
--- OUTSIDE RECORDS SUMMARY | 2024-04-07 10:30 | XMS_ITS | Continuity of Care Document ---
Author Organization [facility] Address [address] [place] [address]- Care Team Providers Care Tool Tender Name Role Phone Fina Lozano MD, Nette Primary Care [facility] Encounter [facility] ACCT R [id number] Date(s): 11/11/23 - 03/10/24 [facility] [address], [place] [address] Attending Physician: Theresa Marroquin MD Admitting Physician: Theresa Marroquin MD Referring Physician: Nette Guzman MD Encounter Type: Pre-OutPatient One Time Allergies, Adverse Reactions, Alerts Substance Criticality Severity Reaction Reaction Severity Status morphine vomiting Active Immunizations Given and Recorded Vaccine Date Status Refusal Reason SARS-CoV-2 (COVID-19) mRNA BNT-162b2 vac 05/17/20 Recorded SARS-CoV-2 (COVID-19) mRNA BNT-162b2 vac 04/30/20 Recorded influenza virus vaccine, inactivated 12/27/12 Give n Medications acetaminophen 325 mg oral tablet 650 mg, By Mouth, Every 6 hours, Refills 0, Maintenance, 11/30/19 9:22:00 AM EDT Start Date: 11/30/19 Status: Ordered Repeat number: 1 aspirin 162.5 mg oral capsule, extended release = 325 mg, By Mouth, 2 times a day, 0 Refills, Maintenance, 11/30/19 9:22:00 AM EDT, ER Capsule Start Date: 11/30/19 Status: Ordered Repeat number: 1 Colace Capsule 100 mg, 1, capsule, By Mouth, 2 times a day, Refills 0, Maintenance, 11/30/19 9:22:00 AM EDT Start Date: 11/30/19 Status: Ordered Repeat number: 1 furosemide 20 mg oral tablet Refills 0, Maintenance, 02/14/24 10:44:00 AM EST, Partial fill upon patient request if the prescription is for a schedule II opioid drug. Start Date: 02/14/24 Status: Ordered Repeat number: 1 Humira = 40 mg, Subcutaneous Infusion, Once, 0 Refills, Maintenance, 08/08/19 8:37:00 AM EDT Start Date: 08/08/19 Status: Ordered Repeat number: 1 hydrochlorothiazide-lisinopril 25 mg-20 mg oral tablet 1 tablet, By Mouth, Daily, in am, 0 Refills, Maintenance, 09/04/19 4:17:00 PM EDT Start Date: 09/04/19 Status: Ordered Repeat number: 1 HYDROmorphone 2 mg oral tablet = 2 mg, By Mouth, Every 3 hours, PRN Pain , Mild, 0 Refills, Maintenance, 11/30/19 9:22:00 AM EDT, Tablet, Partial fill upon patient request Start Date: 11/30/19 Status: Ordered Repeat number: 1 HYDROmorphone 4 mg oral tablet = 4 mg, By Mouth, Every 3 hours, PRN Pain , Moderate, 0 Refills, Maintenance, 11/30/19 9:22:00 AM EDT, Tablet, Partial fill upon patient request Start Date: 11/30/19 Status: Ordered Repeat number: 1 Maalox Plus Liquid 30 mL, By Mouth, Every 4 hours, PRN Other, Heartburn, 0 Refills, Maintenance, 11/30/19 9:22:00 AM EDT, Suspension Start Date: 11/30/19 Status: Ordered Repeat number: 1 Milk of Magnesia Liquid 30 mL, By Mouth, Daily, PRN Constipation, 0 Refills, Maintenance, 11/30/19 9:22:00 AM EDT, Suspension Start Date: 11/30/19 Status: Ordered Repeat number: 1 MiraLax Powder 1 pack/packet = 17 Gm, By Mouth, Daily, 0 Refills, Maintenance, 11/30/19 9:23:00 AM EDT, Powder Start Date: 11/30/19 Status: Ordered Repeat number: 1 oxyCODONE 10 mg oral tablet TAKE 1 TABLET BY MOUTH AT BEDTIME Start Date: 02/14/24 Status: Ordered Repeat number: 1 pantoprazole 40 mg oral delayed release tablet = 40 mg, By Mouth, Daily in AM, 0 Refills, Maintenance, 11/30/19 9:23:00 AM EDT, EC Tablet Start Date: 11/30/19 Status: Ordered Repeat number: 1 senna 187 mg oral tablet 1 tablet = 8.6 mg, By Mouth, Daily at bedtime, 0 Refills, Maintenance, 11/30/19 9:23:00 AM EDT, Tablet Start Date: 11/30/19 Status: Ordered Repeat number: 1 Smoothie Readi-Cat 2 oral suspension See Instructions, If scan in the am, drink 1st bottle night before & 2nd bottle 90 min before scan. If scan after 12p, drink 1st bottle by 8a & 2nd bottle 90 min before. If scan after 4p, drink 1st bottle 6hrs before & 90 minutes before scan, # 2 each, 0 Refills, Maintenance, 02/11/22 9:02:00 AM EST, [facility], Partial fill upon patient request if the prescription is for a schedule II opioid drug., If scan in the am, drink 1st bottle night before & 2nd bottle 90min before scan. If scan after 12p, drink 1st bottle by 8a & 2nd bottle 90 min before. If scan after 4p, drink 1st bottle 6hrs before & 90 minutes before scan, 162.4, cm, 02/11/22 8:50:00 EST, Height, 99.45, kg, 02/11/22 8:50:00 EST, Dry Weight Start Date: 02/11/22 Status: Ordered Quantity: 2.0 Unit: each Repeat number: 1 traMADol 50 mg oral tablet 0 Refills, Maintenance, 02/14/24 10:44:00 AM EST, Partial fill upon patient request if the prescription is for a schedule II opioid drug. Start Date: 02/14/24 Status: Ordered Repeat number: 1 Problem List Condition Confirmation Course Effective Dates Status Health St atus Informant Endometrial cancer Confirmed Active Obese class II Confirmed Active Rheumatoid arthritis Confirmed Active Vaginal bleeding Confirmed Active Social History Social History Type Response Smoking Status Never smoker; Tobacc o user in household: No entered on: 04/05/14 Sex Sex Representation Female (finding) Patient Care team information Care Team Personnel Name: Priscila Monaco RN Position: S RN Member Role: Primary Care Nurse Name: Nette Guzman MD Position: Reference Physician Member Role: PCP Address: [address] [place] [address] [place] [address]- Telecom: Name: Nitza Pozo RN Position: S RN Member Role: Primary Care Nurse Name: Jaylin Spears RN Position: S RN Member Role: Primary Care Nurse Care Team Related Persons Name: GURVINDER CABRERA Insurance Providers Guarantor name: JAQUELIN CABRERA Health Plan Information #: 1 Payer: [employer] PPO Member Number: [id number] Policy Number: NA Group Number: [id number] Health Plan Information #: 2 Payer: [employer] HMO Member Number: NA Policy Number: NA Group Number: NA
--- OUTSIDE RECORDS SUMMARY | 2024-04-07 10:30 | XMS_ITS | Clinical Summary ---
Author Organization [facility] Address [address] [place] [address] Care Team Providers Care Accounts Receivable Assistant Name Role Phone Nette Orozco MD Primary Care Pr ovider Allergies Active Allergy Reactions Criticality Noted Date Comments Morphine GI Intolerance/Nausea/Vomiting Low 01/17 Medications No known medications Active Problems No known active problems Encounters Date Type Department Care Team Description 04/04/2024 10:00 AM EST Office [place] [address] Rosa Serna APRN Arthritis of left subtalar joint (Primary Dx); Osteoarthritis of left ankle, unspecified osteoarthritis type 02/22/2024 9:45 AM EST [place] [address] Bin Morris MD Pain in both lower extremities (Primary Dx) 02/07/2024 Orders Only [facility] [place] [address] Geo Rubio MD 01/18/2024 3:45 PM EST Ancillary Procedure [facility] [place] [address] 01/18/2024 3:30 PM EST Consult [facility] [place] [address] Bin Morris MD Acute left ankle pain (Primary Dx); Pain in both lower extremities from Last 3 Months Social History Tobacco Use Types Packs/Day Years Used Date Smoking Tobacco: Never Assessed Sex and Gender Information Value Date Recorded Sex Assigned at Not on file Gender Identity Not on file Sexual Orientation Not on file Plan of Treatment Upcoming Encounters Date Type Department Care Team ([facility] st Contact Info) Description 05/02/2024 2:15 PM EST Office Visit [facility] [place] [address] Bin Morris MD [address] [place] [address] Health Maintenance Due Date Last Done Comments Hepatitis C Virus Screening 1954 Chronic Controlled Substance Toxicology Screening 1972 Chronic Controlled Substance User PDMP Review 1972 Controlled Substance Agreement Initial and Annual Review 1972 DTaP/Tdap/Td Vaccines (1 - Tdap) 1973 Mammogram 1994 Colonoscopy 11/17/1999 Pneumococcal Vaccines 50+ (1 of 1 - PCV) 2004 Zoster (Shingles) Vaccine (1 of 2) 2004 DXA Bone Density (Females,Ages 65 and older) 11/17/2019 COVID-19 Vaccine ( - season) 2023 01/06/2022, 05/17/2020, 04/30/2020 RSV Vaccine 60 years and older and Patients (1 - 1-dose 75+ series) 2029 Influenza Vaccine Completed 11/26/2023, , 01/06/2022, Additional history exists Hepatitis B Vaccines Aged Out No long er eligible based on patient's age to complete this topic Procedures Procedure Name Priority Date/Time Associated Diagnosis Comments CT SCAN EXTERNAL RESULT Routine 02/04/2024 12:33 PM EST XR FOOT WEIGHT BEARING 3 VIEWS-BILATERAL Routine 01/18/2024 3:54 PM EST Pain in both lower extremities XR ANKLE 3+ VIEWS-BILATERAL Routine 01/18/2024 3:54 PM EST Acute left ankle pain from Last 3 Months Results * CT Scan External Result (02/04/2024 12:33 PM EST) Anatomical Region Laterality Modality Computed Tomogra phy Bin Morris MD IMG CT ORDERABLES * XR Foot weight bearing 3 views-Bilateral (01/18/2024 3:54 PM EST) Narrative [facility] - 01/18/2024 3:54 PM EST [facility] and images reviewed by orthopedic provider. ??Any findings are documented within ambulatory encounter note on date of service. Bin Morris MD IMG DIAGNOSTIC IMAGI NG ORDERABLES Performing Organization Address [facility] de Phone Number OAH * XR Ankle 3+ views-Bilateral (01/18/2024 3:54 PM EST) Narrative [facility] - 01/18/2024 3:54 PM EST This exam was performed in office at [facility] and images reviewed by orthopedic provider. ??Any findings are documented within ambulatory encounter note on date of service. Bin Morris MD [facility] DIAGNOSTIC IMAGI NG ORDERABLES Performing Organization Address [facility] de Phone Number OA from Last 3 Months Care Teams Accounts Receivable Assistant Relationship Specialty Start Date End Date Nette Orozco MD [facility][note 3] [place] [address] PCP - General Internal Medicine 01/18/24
== END 2024-04-07 10:37 | disposition home or self-care (01) ==
PROVIDERS: PCP Internal Medicine; Visit Provider Student in an Organized Health Care Education/Training Program
DX: M06.09 Rheumatoid arthritis without rheumatoid factor, multiple sites (principal); M75.51 Bursitis of right shoulder; Z01.818 Encounter for other preprocedural examination; M70.52 Other bursitis of knee, left knee; Z51.81 Encounter for therapeutic drug level monitoring; Z79.620 Long term (current) use of immunosuppressive biologic
CPT/HCPCS: 20610; 99215

== ENCOUNTER → 2024-04-07 09:52 | Outpatient (BNVA) | payer BC, SELFPAY | PROVIDERS: PCP Internal Medicine; Visit Provider Student in an Organized Health Care Education/Training Program | DX: M06.00 Rheumatoid arthritis without rheumatoid factor, unspecified site (principal); M75.51 Bursitis of right shoulder; M70.52 Other bursitis of knee, left knee; Z79.620 Long term (current) use of immunosuppressive biologic | CPT/HCPCS: 20610; J2003; J3300 ==

== ENCOUNTER 2024-08-04 15:56 | Outpatient (AMB) | payer BC, SELFPAY ==
[2024-08-04 15:59] VITALS: BP 146/80; PULSE 73; O2SAT 98; BMI 33.4
--- NOTE | 2024-08-04 15:59 | MHC.OFFVIS ---
Vital Signs 08/04/24 15:59 Height 5 ft 5 in Weight 200 lb 13.458 oz BMI 33.4 BP 146/80 H Blood Pressure Location Lt brachial Position Sitting Pulse 73 Pulse Source Pulse Oximeter Pulse Oximetry (%) 98 Oxygen Delivery Method Room Air Intake Visit Reasons: follow up Intake Note: Patient presents for follow up on RA, and complains of bilateral shoulder/arm pain since surgery on 05/08/24. Allergies morphine Adverse Reaction (Intermediate, Verified 08/04/24 16:03) Unknown Medication List - Last Reconciled 08/04/24 by Chrissy Koo MD amlodipine 5 mg PO DAILY furosemide 20 mg PO DAILY lisinopril-hydrochlorothiazide 20-25 mg 1 tab PO DAILY oxycodone 5 mg PO BID PRN tocilizumab (Actemra ACTPen) 162 mg (0.9 mL) subcut Q2W tramadol 50 mg PO TID PRN HPI Comments Details: Patient is a 68-year-old female with seronegative non erosive rheumatoid arthritis and osteoarthritis of the hand who presents for follow-up Interval History: Patient last seen 04/07/2024 with me. At that time she self discontinued Plaquenil due to increased nausea and abdominal discomfort also due to ineffectiveness. She had improvement in her bilateral greater trochanteric bursitis after injection however had return of her subacromial bursitis on the right. Her Plaquenil was discontinued and she was started on Actemra. She was also given another injection for her right subacromial bursitis Today she is following up after she had right ankle fusion surgery Started Actemra about 1 month Currently complaining of left shoulder pain Right shoulder improved after steroid injection Rheumatologic History: Onset approx 2004: ankle and hand synovitis RF, CCP negative; JACK pos(1: 320 speckled) Sulfasalazine 2006 to end of 2007 - not helpful; methotrexate Started 10/13 08/14-Enbrel added 04/17- discussion surgical options for left foot 03/22-left TKR(Janelle); redo 03/22: Patient stopped Enbrel because of resp Infections; did not restart methotrexate because of nausea 01/22: leflunomide for 6 weeks but not tolerated due to diarrhea 05/23: Humira started. 12/2023 Stopped. LE swelling, concern for HF 12/2023: Started plaquenil stopped 03/2024. GI discomfort and ineffective 03/2024: Actemra Current Rheumatology Medication(s): Actemra 162mg every 2 weeks [facility] Medical History (Updated 04/07/24 @ 12:22 by Chrissy Koo MD) Encounter for monitoring tocilizumab therapy Long-term use of Plaquenil Trochanteric bursitis of both hips Subacromial bursitis of right shoulder joint Acquired valgus deformity of both ankles Osteoarthritis of ankle and foot Bilateral swelling of feet and ankles Swelling of ankle joint Surgical History Hx of colonoscopy H/O elbow surgery S/P bilateral breast lumpectomy History of bladder suspension procedure Hx of hysterectomy History of total knee arthroplasty H/O arthroscopy of left knee Family History Other Gout Heart disease Lung cancer Osteoarthritis Rheumatoid arthritis Stomach cancer Stroke Social History Household Members: Spouse and Children Alcohol intake: current Alcohol intake frequency: holidays/special occasions only Patient Tobacco Use Status: Never used Tobacco service: No Current occupational status: employed Review of Systems Const Details: Review of Systems Constitutional: Denies fever, chills, weight loss ENT: Denies vision changes, eye pain or eye redness, dental caries, dry mouth GI: Denies nausea, vomiting, diarrhea, abdominal pain, change in BM Pulm: Denies SOB, STEINER, hemoptysis, wheezing Cards: Denies chest pain, palpitations Skin: Denies Raynaud's, rash, nail changes, photosensitivity, WOOL DYER: Denies headaches, weakness, paresthesias, recurrent falls MSK: as per HPI All other systems reviewed and are unremarkable except noted above Physical Exam Vital Signs: Last Vital Signs Pulse 73 08/04/24 15:59 BP 146/80 H 08/04/24 15:59 Pulse Ox 98 08/04/24 15:59 Oxygen Delivery Method Room Air 08/04/24 15:59 BMI result Body Mass Index 33.4 Vital signs reviewed Physical Examination CONSTITUITIONAL Patient alert and cooperative. Well appearing and in no apparent painful distress HEENT Conjunctiva and sclera clear. ?Pupils equal round and reactive to light. ?No lymphadenopathy. ? CHEST/RESPIRATORY SYSTEM Normal respiratory effort and able to speak in complete sentences. ?Clear to auscultation bilaterally. ?No crackles, rales, rhonchi, wheezes heard. CARDIAC SYSTEM Regular rate and rhythm. ?S1 and S2 heard no murmurs. ?Radial pulses intact bilaterally MSK Hands: ?Able to make a fist. No synovitis noted to the MCPs, PIPs or DIPs. ?Ulnar deviation bilaterally with synovial hypertrophy of the MCPs 2nd - 5th bilaterally. No TTP Wrists: ?Decreased ROM of bilateral wrists without TTP or swelling Elbows: Full range of motion without pain. No tenderness, weakness, swelling, increased warmth or erythema. Shoulders: Full range of active range of motion. TTP of the left subacromial bursa Knees: ?Full range of motion. ?No tenderness, swelling, increased warmth or erythema.?No effusion. Bilateral crepitations felt Ankles: Bilateral ankles in braces Feet: ?Negative squeeze test. ?No tenderness to palpation or swelling of the MTPs. Tender points:?No tenderness to palpation of the bilateral trapezius, supraspinatus, greater trochanters, anterior costochondral junctions, bilateral gluteal areas, bilateral suboccipital muscle insertions SKIN Skin intact without rashes. Office Procedures AMB Joint Injection/Aspiration Joint Injection/Aspiration Details: Procedure was explained to the patient and consent was obtained. ? The area of interest was identified and confirmed with patient. ?This was subsequently cleaned with chlorhexidine x3. ? The area was then anesthetized using ethyl chloride spray. 40 mg Kenalog with 1 cc 1% lidocaine was injected without issue. ?Minimal to no bleeding. ?Patient tolerated procedure. Primary Site: left shoulder Prep: site was prepped using aseptic technique and ethochloride spray was applied Injected: 40 mg of, Kenalog, with 1 mL of, 1% plain lidocaine and in the subcromial space Procedure: The patient tolerated the procedure well Coding 27371 - Glenohumeral/Tronchanteric Bursa/Intraarticular Procedure code (CPT) selection complete Office Meds lidocaine (PF) 10 mg/mL (1 %) injection solution Performing Provider: Chrissy Koo MD Performing Location: [facility] Rheumatology Administered by: Chrissy Koo MD on 08/04/24 16:31 Dose Route Admin Location Dispensed Lot Number Expiration Date [facility] Health Data Administrator 1 mL Infiltration left subacromial bursa 2 mL [id number] 05/06/26 72779-226-80 [employer] Kenalog 40 mg/mL suspension for injection Performing Provider: Chrissy Koo MD Performing Location: [facility] Rheumatology Administered by: Chrissy Koo MD on 08/04/24 16:31 Dose Route Admin Location Dispensed Lot Number Expiration Date [facility] Health Data Administrator 40 mg intrabursal left subacromial bursa 1 mL [id number] 06/06/26 0070-7813-27 [facility] Results Reviewed Results Reviewed: Laboratory Tests 04/27/22 07/20/23 08:54 09:50 WBC 11.7 H RBC 4.67 Hgb 13.9 Hct 42.9 Plt Count 313 ESR 11 Sodium 144 Potassium 3.8 Chloride 105 Carbon Dioxide 29 BUN 21 H Creatinine 0.93 AST 15 ALT 16 Alkaline Phosphatase 55 C-Reactive Protein 0.17 Cycl Citrul Peptide IgG <16 XR Bilateral Hands/Wrists 12/2023 FINDINGS (right hand): Diffuse demineralization. Ulnar-minus variance. Narrowing of the radiocarpal space. Severe degenerative changes in the first carpometacarpal joint with loss of the joint space and abundant hypertrophic changes as well as subluxation. Moderate degenerative changes in the metacarpal phalangeal joints. Moderate degenerative changes in the IP joints, particularly notable in the fourth and fifth DIP joints. FINDINGS (left hand): Diffuse demineralization. Ulnar minus variance. Narrowing of the radiocarpal space. Odwwvgsp-sr-upesvh degenerative changes in the first carpometacarpal joint with loss of the joint space and abundant hypertrophic change. Moderate degenerative changes in the metacarpal phalangeal joints. Moderate degenerative changes in the IP joints. XR Bilateral Ankles/Feet 12/2023 FINDINGS (left ankle): Prominent soft tissue swelling. Marginal osteophytes and nonuniform joint space narrowing of the talocrural joint. Extensive degenerative changes of the subtalar joints. Increased ossification posteriorly likely reflects loose body or bone fragmentation. Arthrosis of the talonavicular joint. Calcaneal spur. Calcification is ossification of the soft tissues of the distal lower leg FINDINGS (right ankle): There is a radiodense line through the lateral malleolus concerning for possible subtle nondisplaced fracture indeterminant age. There are degenerative osteoarthritic changes. No fracture. There is soft tissue swelling around lateral malleolus. FINDINGS (left foot): Pes planus. Large plantar calcaneal spur. Diffuse demineralization. Incompletely imaged possible bandage overlying partially imaged anterior distal aspect of the lower LEFT leg. Severe degenerative changes in the second metatarsophalangeal joint with flattening and deformity of the subjacent articular surfaces. Edcmflal-mz-vwziet degenerative changes in the first metatarsophalangeal joint with joint space narrowing and hypertrophic change. Degenerative changes in the tarsometatarsal joints. Moderate degenerative changes in the second metatarsophalangeal joint. Moderate degenerative changes in the midfoot. FINDINGS (right foot): Onupbhix-ie-tygrfw degenerative changes in the first metatarsophalangeal joint with joint space narrowing and hypertrophic change. The second, third, fourth and fifth toes are flexed, limiting evaluation. Degenerative changes in the tarsometatarsal joints. Moderate degenerative changes in the second metatarsophalangeal joint. Moderate degenerative changes in the midfoot. Pes planus. Large plantar calcaneal spur Assessment & Plan Assessment & Plan (1) Seronegative rheumatoid arthritis: Comment: Onset approx 2004: ankle and hand synovitis RF, CCP negative; JACK pos(1: 320 speckled) Sulfasalazine 2006 to end of 2007 - not helpful; methotrexate Started 10/13 08/14-Enbrel added 04/17- discussion surgical options for left foot 03/22-left TKR(Janelle); redo 03/22: Patient stopped Enbrel because of resp Infections; did not restart methotrexate because of nausea 01/22: leflunomide for 6 weeks but not tolerated due to diarrhea 05/23: Humira started - stopped due to concerns for HF 12/2023: Plaquenil started. Stopped due to ineffectiveness and nausea Code(s): M06.00 - Rheumatoid arthritis without rheumatoid factor, unspecified site Category: Medical Plan: #Seronegative rheumatoid arthritis Patient is a 68-year-old female with seronegative rheumatoid arthritis. Currently on Actemra and no active synovitis noted on exam today. Will get labs and continue to follow. Plan - Actemra 162mg SC every other week - Labs today: CBC, CMP, ESR, CRP, hepatitis panel, T spot, lipid panel - RTC 4 months (2) Subacromial bursitis of right shoulder joint: Code(s): M75.51 - Bursitis of right shoulder Category: Medical Plan: #Right shoulder subacromial bursitis Improved post steroid injection (3) Subacromial bursitis of left shoulder joint: Code(s): M75.52 - Bursitis of left shoulder Plan: #Left subacromial bursitis s/p left shoulder injection today (4) Encounter for monitoring tocilizumab therapy: Code(s): Z51.81 - Encounter for therapeutic drug level monitoring; Z79.620 - intermediate manager (current) use of immunosuppressive biologic Category: Medical Plan: #Long-term Use of Tocilizumab Discussed the risks and benefits of tocilizumab with the management of this patient's rheumatic condition. ? Benefits include decreased pain, improved mortality, improved quality of life Risks include LFT abnormalities, elevated triglycerides, GI perforations Contraindicated in a patient with history of diverticulitis Monitoring: ?CBC, CMP, triglycerides Plan I spent 30 minutes reviewing the record and labs, taking a history, examining the patient, discussing the treatment plan and documenting in the medical record Orders: Orders AMB Joint Injection/Aspiration Today M75.52 - Bursitis of left shoulder Medications: New Kenalog (triamcinolone acetonide) 40 mg intrabursal ONCE 1 mL 0RF NS M75.52 - Bursitis of left shoulder lidocaine (PF) 1 mL Infiltration ONCE 2 mL 0RF M75.52 - Bursitis of left shoulder Refilled tocilizumab (Actemra ACTPen) 162 mg (0.9 mL) subcut Q2W 1.8 mL 5RF M06.00 - Rheumatoid arthritis without rheumatoid factor, unspecified site Coding Level of Care Code Est Pt Level 4 (69358) Complex EM visit Add On G2211 Diagnoses Seronegative rheumatoid arthritis M06.00 Subacromial bursitis of right shoulder joint M75.51 Subacromial bursitis of left shoulder joint M75.52 Encounter for monitoring tocilizumab therapy Z51.81; Z79.620 CPT Codes Coding - Joint 7: 54822 - Glenohumeral/Tronchanteric Bursa/Intraarticular ([id number])
== END 2024-08-04 16:30 | disposition home or self-care (01) ==
LOC: HO.RHE 15:56
PROVIDERS: PCP Internal Medicine; Visit Provider Student in an Organized Health Care Education/Training Program
DX: M06.09 Rheumatoid arthritis without rheumatoid factor, multiple sites (principal); M75.51 Bursitis of right shoulder; M75.52 Bursitis of left shoulder; Z51.81 Encounter for therapeutic drug level monitoring; Z79.620 Long term (current) use of immunosuppressive biologic; Z01.818 Encounter for other preprocedural examination; M70.52 Other bursitis of knee, left knee
CPT/HCPCS: 20610; 99214

== ENCOUNTER → 2024-08-04 15:56 | Outpatient (BNVA) | payer BC, SELFPAY | PROVIDERS: PCP Internal Medicine; Visit Provider Student in an Organized Health Care Education/Training Program | DX: M75.52 Bursitis of left shoulder (principal); M75.51 Bursitis of right shoulder; M06.00 Rheumatoid arthritis without rheumatoid factor, unspecified site; Z79.899 Other long term (current) drug therapy; Z79.620 Long term (current) use of immunosuppressive biologic; Z51.81 Encounter for therapeutic drug level monitoring | CPT/HCPCS: 20610; J3300 ==

== ENCOUNTER 2024-12-05 13:43 | Outpatient (AMB) | payer BC, SELFPAY ==
--- NOTE | 2024-12-05 13:57 | A.OFFVIS_ITS ---
Vital Signs 12/05/24 14:01 Height 5 ft 5 in Weight 206 lb 12.697 oz BMI 34.4 BP 120/80 Blood Pressure Location Rt brachial Position Sitting Pulse 76 Pulse Source Pulse Oximeter Pulse Oximetry (%) 98 Oxygen Delivery Method Room Air Intake Visit Reasons: follow up Intake Note: Patient presents for RA follow up. Allergies morphine Adverse Reaction (Intermediate, Verified 12/05/24 14:00) Unknown HPI Comments Details: Patient is a 69-year-old female with seronegative non erosive rheumatoid arthritis and osteoarthritis of the hand who presents for follow-up Interval History: Patient last seen 08/04/2024 with ga - On Actemra 162mg SC every 2 weeks - She is following up after she had left ankle fusion surgery - Started Actemra about 1 month - Currently complaining of left shoulder pain - Right shoulder improved after steroid injection - Left shoulder injected Today - On Actemra 162mg SC every 2 weeks - Recently returned from a 2 week trip to [place], saw [facility] sites - Left shoulder improved after steroid injection - Left ankle is better after surgery but still gets swollen - Now complaining of intermittent right ankle pain - Gets hand pain but infrequently and transient Rheumatologic History: Onset approx 2004: ankle and hand synovitis RF, CCP negative; JACK pos(1: 320 speckled) Sulfasalazine 2006 to end of 2007 - not helpful; methotrexate Started 10/13 08/14-Enbrel added 04/17- discussion surgical options for left foot 03/22-left TKR(Janelle); redo 03/22: Patient stopped Enbrel because of resp Infections; did not restart methotrexate because of nausea 01/22: leflunomide for 6 weeks but not tolerated due to diarrhea 05/23: Humira started. 12/2023 Stopped. LE swelling, concern for HF 12/2023: Started plaquenil stopped 03/2024. GI discomfort and ineffective 03/2024: Actemra Current Rheumatology Medication(s): Actemra 162mg every 2 weeks SC [facility] Medical History (Updated 04/07/24 @ 12:22 by Chrissy Koo MD) Encounter for monitoring tocilizumab therapy Long-term use of Plaquenil Trochanteric bursitis of both hips Subacromial bursitis of right shoulder joint Acquired valgus deformity of both ankles Osteoarthritis of ankle and foot Bilateral swelling of feet and ankles Swelling of ankle joint Surgical History Hx of colonoscopy H/O elbow surgery S/P bilateral breast lumpectomy History of bladder suspension procedure Hx of hysterectomy History of total knee arthroplasty H/O arthroscopy of left knee Family History Other Gout Heart disease Lung cancer Osteoarthritis Rheumatoid arthritis Stomach cancer Stroke Social History Household Members: Spouse and Children Alcohol intake: current Alcohol intake frequency: holidays/special occasions only Patient Tobacco Use Status: Never used Tobacco service: No Current occupational status: employed Review of Systems Const Details: Review of Systems Constitutional: Denies fever, chills, weight loss ENT: Denies vision changes, eye pain or eye redness, dental caries, dry mouth GI: Denies nausea, vomiting, diarrhea, abdominal pain, change in BM Pulm: Denies SOB, STEINER, hemoptysis, wheezing Cards: Denies chest pain, palpitations Skin: Denies Raynaud's, rash, nail changes, photosensitivity, PLASTERER SPOT: Denies headaches, weakness, paresthesias, recurrent falls MSK: as per HPI All other systems reviewed and are unremarkable except noted above Physical Exam Exam Exam: Vital signs reviewed Physical Examination CONSTITUITIONAL Patient alert and cooperative. Well appearing and in no apparent painful distress MSK Hands * Right Hand: Able to make a fist. No swelling or tenderness to palpation of the MCPs, PIPs or DIPs. * Left Hand: Able to make a fist. No swelling or tenderness to palpation of the MCPs, PIPs or DIPs. * Ulnar deviation at the MCPs bilaterally * Bilateral squarring of the 1st CMC * Herbedens nodes noted bilaterally Wrists * Right Wrist: Full ROM to flexion and extension. No swelling or TTP * Left Wrist: Full ROM to flexion and extension. No swelling or TTP Elbows * Right Elbow: Full ROM. No swelling or TTP. No TTP of the medial epicondyle. No TTP of the lateral epicondyle * Left Elbow: Full ROM. No swelling or TTP. No TTP of the medial epicondyle. No TTP of the lateral epicondyle Shoulders * Right shoulder: Full ROM. No swelling noted. No TTP of the AC joint. No TTP of the subacromial bursa. No TTP of the posterior shoulder * Left shoulder: Full ROM. No swelling noted. No TTP of the AC joint. No TTP of the subacromial bursa. No TTP of the posterior shoulder Knees * Right knee: Full ROM. No swelling noted. No TTP of the knee joint line. No TTP of pes anserine bursa. Crepitations felt * Left knee: Full ROM. No swelling noted. No TTP of the knee joint line. No TTP of pes anserine bursa. surgical scar noted Ankles * Right ankle: Decreased ROM. Swelling noted. No TTP of the ankle joint * Left ankle: Fixed. Swelling noted. No TTP of the ankle joint Feet * Right foot: Negative squeeze test * Left foot: Negative squeeze test Tender points? * No tenderness to palpation of the bilateral trapezius, supraspinatus, anterior costochondral junctions, bilateral suboccipital muscle insertions SKIN No rashes Vital Signs: Last Vital Signs Pulse 76 12/05/24 14:01 BP 120/80 12/05/24 14:01 Pulse Ox 98 12/05/24 14:01 Oxygen Delivery Method Room Air 12/05/24 14:01 BMI result Body Mass Index 34.4 Results Reviewed Results Reviewed: 09/11/24 [facility] WBC 5.4 Hb 13.8 Plt 250 BUN 24 Cr 1.04 H eGFR 58 L AST 16 ALT 19 TGs 179 Chol 243 LDL 152 ESR 2 CRP <1 Hep A Negative Hep B Negative HCV NR Tb Negative Assessment & Plan Assessment & Plan (1) Seronegative rheumatoid arthritis: Comment: Onset approx 2004: ankle and hand synovitis RF, CCP negative; JACK pos(1: 320 speckled) Sulfasalazine 2006 to end of 2007 - not helpful; methotrexate Started 10/13 08/14-Enbrel added 04/17- discussion surgical options for left foot 03/22-left TKR(Janelle); redo 03/22: Patient stopped Enbrel because of resp Infections; did not restart methotrexate because of nausea 01/22: leflunomide for 6 weeks but not tolerated due to diarrhea 05/23: Humira started - stopped due to concerns for HF 12/2023: Plaquenil started. Stopped due to ineffectiveness and nausea Code(s): M06.00 - Rheumatoid arthritis without rheumatoid factor, unspecified site Category: Medical Plan: #Seronegative rheumatoid arthritis Patient is a 69-year-old female with seronegative rheumatoid arthritis. Currently on Actemra and no active synovitis noted on exam today. Plan - Actemra 162mg SC every other week - RTC 6 months - Labs before visit: CBC, CMP, ESR, CRP, Lipid panel (2) Osteoarthritis of ankles, bilateral: Code(s): M19.071 - Primary osteoarthritis, right ankle and foot; M19.072 - Primary osteoarthritis, left ankle and foot Qualifiers: Osteoarthritis type: primary Qualified Code(s): M19.071 - Primary osteoarthritis, right ankle and foot; M19.072 - Primary osteoarthritis, left ankle and foot Plan: #Bilateral Ankle OA Patient with bilateral ankle OA, status post left ankle surgery. Still with bilateral ankle swelling and some tenderness to palpation on examination today. She should continue to follow up with surgery. 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 ? Benefits include decreased pain, improved mortality, improved quality of life Risks include LFT abnormalities, elevated triglycerides, GI perforations Contraindicated in a patient with history of diverticulitis Monitoring: ?CBC, CMP, triglycerides Plan I spent 30 minutes reviewing the record and labs, taking a history, examining the patient, discussing the treatment plan and documenting in the medical record Orders: Orders Comprehensive Met. Panel Today Z79.899 - Other petroleum terminal plant operator (current) drug therapy C Reactive Protein Today Z79.899 - Other senior living (current) drug therapy Erythrocyte Sedimentation Rate Today Z79.899 - Other senior living (current) drug therapy Complete Blood Count Auto Diff Today Z79.899 - Other petroleum terminal plant operator (current) drug therapy Lipid Panel Today Z79.899 - Other senior living (current) drug therapy Coding Level of Care Code Est Pt Level 4 (89602) Complex EM visit Add On G2211 Diagnoses Seronegative rheumatoid arthritis M06.00 Primary osteoarthritis of both ankles M19.071; M19.072 Osteoarthritis type: primary Encounter for monitoring tocilizumab therapy Z51.81; Z79.620
[2024-12-05 14:01] VITALS: BP 120/80; PULSE 76; O2SAT 98; BMI 34.4
--- OUTSIDE RECORDS SUMMARY | 2024-12-05 15:01 | XMS_ITS ---
[facility] Name [facility] Unknown Results Test Name/Text Value Interpretation Date Range Source GFR/BSA.pred SerPlBld [id number] 54.0 Below low normal 05/09/2024 59 - H[facility]CT Glucose SerPl-mCnc 117.0 mg/dL Above high normal 05/09/2024 65 - 99 H[facility] Calcium SerPl-mCnc 8.8 mg/dL Normal 05/09/2024 8.7 - 10.5 H[facility]CT Sodium SerPl-sCnc 143.0 mmol/L Normal 05/09/2024 136 - 14 5 H[facility]CT Chloride SerPl-sCnc 105.0 mmol/L Normal 05/09/2024 98 - 1 07 H[facility]CT Anion Gap Bld-sCnc 7.0 Normal 05/09/2024 7 - 17 [facility] BUN SerPl-mCnc 20.0 mg/dL Normal 05/09/2024 8 - [address] CO2 SerPl-sCnc 31.0 mmol/L Normal 05/09/2024 22 - 33 HH CCT Creat SerPl-mCnc 1.1 mg/dL Normal 05/09/2024 0.4 - 1.1 HH CCT Potassium SerPl-sCnc 3.7 mmol/L Normal 05/09/2024 3.4 - 5 .3 H[facility]CT BUN/Creat SerPl 18.0 Ratio Normal 05/09/2024 10 - 25 HH CCT Anion Gap Bld-sCnc 8.0 Normal 05/08/2024 7 - 17 [facility]CT CO2 SerPl-sCnc 30.0 mmol/L Normal 05/08/2024 22 - 33 HH CCT Creat SerPl-mCnc 1.1 mg/dL Normal 05/08/2024 0.4 - 1.1 HH CCT Potassium SerPl-sCnc 3.6 mmol/L Normal 05/08/2024 3.4 - 5 .3 [facility]CT BUN/Creat SerPl 24.0 Ratio Normal 05/08/2024 10 - 25 HH CCT Calcium SerPl-mCnc 9.4 mg/dL Normal 05/08/2024 8.7 - 10.5 [facility]CT Chloride SerPl-sCnc 103.0 mmol/L Normal 05/08/2024 98 - 1 07 H[facility]CT BUN SerPl-mCnc 26.0 mg/dL Above high normal 05/08/2024 8 - 2 1 H[facility]CT GFR/BSA.pred SerPlBld PDE-ODH-GeMUoq 54.0 Below low normal 05/08/2024 59 - [facility]HCCT Glucose SerPl-mCnc 91.0 mg/dL Normal 05/08/2024 65 - 99 H[facility]CT Sodium SerPl-sCnc 141.0 mmol/L Normal 05/08/2024 136 - 14 5 H[facility] Result Not Detected Normal 04/21/2024 - [facility]CT Hgb A1c MFr Bld 5.3 % Normal 04/21/2024 - 5.[address] Est. average glucose Bld gHb Est-mCnc 105.0 mg/dL Normal 04/21/2024 [facility]CT Transferrin SerPl-mCnc 243.0 mg/dL Normal 04/21/2024 200 - 360 [facility]CT Calcium SerPl-mCnc 9.5 mg/dL Normal 04/21/2024 8.7 - 10.5 H[facility]CT Sodium SerPl-sCnc 137.0 mmol/L Normal 04/21/2024 136 - 14 5 [facility]CT BUN/Creat SerPl 30.0 Ratio Above high normal 04/21/2024 10 - 25 H[facility]CT Creat SerPl-mCnc 1.2 mg/dL Above high normal 04/21/2024 0.4 - 1.1 H[facility]CT GFR/BSA.pred SerPlBld ALB-ZKR-OvBEmv 49.0 Below low normal 04/21/2024 59 - HHCCT Chloride SerPl-sCnc 97.0 mmol/L Below low normal 04/21/2024 98 - 107 H[facility]CT Potassium SerPl-sCnc 3.3 mmol/L Below low normal 04/21/2024 3.4 - 5.3 H[facility]CT BUN SerPl-mCnc 36.0 mg/dL Above high normal 04/21/2024 8 - 2 1 H[facility]CT CO2 SerPl-sCnc 30.0 mmol/L Normal 04/21/2024 22 - 33 HH CCT Anion Gap Bld-sCnc 10.0 Normal 04/21/2024 7 - 17 [facility]CT Glucose SerPl-mCnc 83.0 mg/dL Normal 04/21/2024 65 - 99 H[facility]CT Prealb SerPl-mCnc 25.0 mg/dL Normal 04/21/2024 20 - 40 [facility] Platelet num Bld Auto 358.0 Thou/uL Normal 04/21/2024 150 - 450 H[facility]CT Monocytes num Bld Auto 0.84 Thou/uL Normal 04/21/2024 0.2 - 1.5 H[facility]CT Lymphocytes num Bld Auto 1.91 Thou/uL Normal 04/21/2024 1.5 - 4.5 H[facility]CT RDW RBC Auto-Rto 13.2 % Normal 04/21/2024 11.5 - 14.5 H[facility]CT PMV Bld Auto 9.8 fL Normal 04/21/2024 7.5 - 12.5 H[facility]CT Lymphocytes/leuk NFr Bld Auto 21.4 % Normal 04/21/2024 [facility] Neutrophils num Bld Auto 5.8 Thou/uL Normal 04/21/2024 2 - 7.5 H[facility]CT Eosinophil num Bld Auto 0.28 Thou/uL Normal 04/21/2024 0 - 0.7 HHCCT Hgb Bld-mCnc 12.3 g/dL Normal 04/21/2024 11.7 - 15.7 HHCC T Basophils num Bld Auto 0.08 Thou/uL Normal 04/21/2024 0 - 0.2 HHCCT MCH RBC Qn Auto 29.9 pg Normal 04/21/2024 27 - [address] Hct VFr Bld Auto 38.8 % Normal 04/21/2024 35 - 47 HH CCT Basophils/leuk NFr Bld Auto 0.9 % Normal 04/21/2024 H[facility]CT Imm Granulocytes/leuk NFr Bld Auto 0.3 % Normal 04/21/2024 [facility]CT Monocytes/leuk NFr Bld Auto 9.4 % Normal 04/21/2024 H[facility] WBC num Bld Auto 8.9 Thou/uL Normal 04/21/2024 4 - 11 H[facility]CT MCV RBC Auto 94.0 fL Normal 04/21/2024 80 - 100 [facility] Imm Granulocytes num Bld Auto 0.03 Thou/uL Normal 04/21/2024 0 - 0.1 H[facility]CT Neutrophils/leuk NFr Bld Auto 64.9 % Normal 04/21/2024 H[facility]CT Eosinophil/leuk NFr Bld Auto 3.1 % Normal 04/21/2024 H[facility]CT RBC num Bld Auto 4.12 Mil/uL Normal 04/21/2024 4 - 5.4 HHCCT MCHC RBC Auto-mCnc 31.7 g/dL Normal 04/21/2024 30 - 36 H[facility]CT History of Medication Use Medication Directions Dispensed Refills Start Date End Date Stat acetaminophen (TYLENOL) 325 MG tablet Take 3 tablets (975 mg total) by mouth every 8 (eight) hours around the clock. 05/11/2024 active aspirin enteric coated (ECOTRIN LOW STRENGTH) 81 MG EC tablet Take 1 tablet (81 mg total) by mouth every 12 (twelve) hours around the clock. 05/11/2024 active cholecalciferol (CHOLECALCIFEROL) 25 MCG (1000 UT) tablet Take 2 tablets (2,000 Units total) by mouth daily. 05/11/2024 active methocarbamol (ROBAXIN) 500 MG tablet Take 1 tablet (500 mg total) by mouth 4 times daily (every 6 hours) as needed for muscle spasms. 05/11/2024 active oxyCODONE (ROXICODONE) 5 MG immediate release tablet Take 1-2 tablets (5-10 mg total) by mouth every 4 (four) hours as needed for severe pain or moderate pain. Max Daily Amount: 60 mg 05/11/2024 active polyethylene glycol 17 g packet Take 1 packet (17 g total) by mouth daily as needed for constipation (May start on Hospital Day 1). 05/11/2024 active senna-docusate (SENNA-S) 8.6-50 MG Take 2 tablets by mouth 2 (two) times a day. 05/11/2024 active lisinopril-hydroCHLORO thiazide (PRINZIDE,ZESTORETIC) 20-25 MG per tablet Take 1 tablet by mouth every morning. 02/21/2024 active furosemide (LASIX) 20 MG tablet Take 1 tablet (20 mg total) by mouth every morning. 02/14/2024 active traMADol (ULTRAM) 50 MG tablet Take 1 tablet (50 mg total) by mouth 3 (three) times a day as needed for moderate pain. 02/14/2024 active diclofenac (VOLTAREN) 1 % gel Apply 2 g topically 4 (four) times a day as needed for pain or muscle/joint pain. Use dosing card to measure dose. Apply to entire affect area. active No known medications No known medications active oxyCODONE (ROXICODONE) 10 mg immediate release tablet Take 1 tablet (10 mg total) by mouth nightly. active Allergies Allergen Reaction Severity Comment Documented Date Source Statu s MORPHINE GI INTOLERANCE/NAUSEA/VOMITING 01/18/2024 [facility] active Problems Problem Status Onset Date Problem Type Date of Resolution Source GERD (gastroesophageal reflux disease) [facility] Arthritis of left subtalar joint active EncounterDiagnosisAct [facility] Varicose vein of leg active ProblemAct [facility] Endometrial cancer, grade I active 2019-08-07 ProblemAct [facility] CKD (chronic kidney disease) active ProblemAct [facility] HTN (hypertension) active ProblemAct [facility] Hyperlipidemia active ProblemAct [facility] T Osteoarthritis active 2024-05-08 ProblemAct [facility] Immunizations Vaccine Date Source Lot Number Status Influenza, Trivalent (FLUAD) Adjuvanted Preservative Free IM 65 years and older 11/26/2023 [facility] [id number] completed Influenza, Trivalent (FLUAD) Adjuvanted Preservative Free IM 65 years and older 11/26/2023 [facility] [id number] completed Influenza, Trivalent (FLUAD) Adjuvanted Preservative Free IM 65 years and older 11/26/2023 [facility] [id number] completed Influenza, Trivalent (FLUAD) Adjuvanted Preservative Free IM 65 years and older 01/15/2023 [facility] [id number] completed Influenza, Trivalent (FLUAD) Adjuvanted Preservative Free IM 65 years and older 01/15/2023 [facility] [id number] completed Influenza, Trivalent (FLUAD) Adjuvanted Preservative Free IM 65 years and older 01/15/2023 [facility] [id number] completed Influenza, Trivalent (FLUAD) Adjuvanted Preservative Free IM 65 years and older 12/30/2020 [facility] [id number] completed Influenza, Trivalent (FLUAD) Adjuvanted Preservative Free IM 65 years and older 12/30/2020 [facility] [id number] completed Influenza, Trivalent (FLUAD) Adjuvanted Preservative Free IM 65 years and older 12/30/2020 [facility] [id number] completed Influenza, Trivalent (FLUAD) Adjuvanted Preservative Free IM 65 years and older 02/15/2020 [facility] [id number] completed Influenza, Trivalent (FLUAD) Adjuvanted Preservative Free IM 65 years and older 02/15/2020 [facility] [id number] completed Influenza, Trivalent (FLUAD) Adjuvanted Preservative Free IM 65 years and older 02/15/2020 [facility] [id number] completed Encounters Encounter Type Encounter Reason Primary Diagnosis Location Date Ambulatory [facility] 10/[facility]/2024 [facility] 10/24/2024 Ambulatory Primary osteoarthritis, left ankle and foot Primary osteoarthritis, left ankle and foot [facility] 10/24/2024 [facility] 08/29/2024 Ambulatory Primary osteoarthritis, left ankle and foot Primary osteoarthritis, left ankle and foot [facility] 08/29/2024 [facility] 07/18/2024 Ambulatory Primary osteoarthritis, left ankle and foot Primary osteoarthritis, left ankle and foot [facility] 07/18/2024 [facility] 06/20/2024 Ambulatory Primary osteoarthritis, left ankle and foot Primary osteoarthritis, left ankle and foot [facility] 06/20/2024 [facility] 05/30/2024 Ambulatory Primary osteoarthritis, left ankle and foot Primary osteoarthritis, left ankle and foot [facility] 05/30/2024 Ambulatory Primary osteoarthritis, left ankle and foot Primary osteoarthritis, left ankle and foot [facility] 05/23/2024 Ambulatory Primary osteoarthritis, left ankle and foot Primary osteoarthritis, left ankle and foot [facility] 05/08/2024 Ambulatory Follow-up Follow-up [facility] 05/02/2024 Ambulatory Encounter for other preprocedural examination Encounter for other preprocedural examination [facility] 04/20/2024 Ambulatory Primary osteoarthritis, left ankle and foot Primary osteoarthritis, left ankle and foot [facility] 04/04/2024 Ambulatory Pain in right leg Pain in right leg [facility] 02/22/2024 Ambulatory [facility] 01/18/2024 Ambulatory Pain in left ankle and joints of left foot Pain in left ankle and joints of left foot [facility] 01/18/2024 Care Team Organization Name Specialty Phone Email Start Date End Da te [facility] 10/25/2024 [facility] FLAKITA N[facility] 01/20/2024 11/29/2024 [facility] 01/18/2024 [facility] 12/24/2023 [facility] LOTTIE LAUREN Primary Care 05/13/20222023 [facility] FLAKITA NAVA Primary [facility] 01/13/2022 10/25/2023
--- OUTSIDE RECORDS SUMMARY | 2024-12-05 15:01 | XMS_ITS | Encounter Summary ---
Author Organization [facility] Address [address] [place] [address] Care Team Providers Care Data Entry Analyst Name Role Phone Nette Orozco MD Primary Care Pr ovider Bin Morris MD Unavailable [phone] Encounter Details Date Type Department Care Team (Late st Contact Info) Description 09/27/2024 Scanned Document [facility] [address] [place] [id number] Ana Pozo [address] [place] [id number] Social History Tobacco Use Types Packs/Day Years Used Date Smoking Tobacco: Never Passive Smoke Exposure: Past Smokeless Tobacco: Never Alcohol Use Standard Drinks/Week Comments Yes 1 (1 standard drink = 0.6 oz pure alcohol) 2-3 DRINKS A MONTH, AWARE NOT TO DRINK 2 WEEKS BEFORE OR AUDIT-C Answer Date Recorded Q1: How often do you have a drink containing alc ohol? Monthly or less 04/13/2024 Q2: How many drinks containi ng alcohol do you have on a typical day when you are drinking? 1 or 2 04/13/2024 Q3: How often do you have si x or more drinks on one occasion? Never 04/13/2024 Comments Unknown Sex and Gender Information Value Date Recorded Sex Assigned at Female 04/19/2024 2:26 PM EST Legal Sex Female 11:54 AM EDT Gender Identity Female 04/19/2024 2:26 PM EST Sexual Orientation Heterosexual (straight) 04/19 2:26 PM EST documented as of this encounter Plan of Treatment Not on file documented as of this encounter Visit Diagnoses Not on filedocumented in this encounter Care Teams Data Entry Analyst Relationship Specialty Start Date End Date Nette Orozco MD PCP - General Internal Medicine 01/18/24 Bin Morris MD [address] [place] [id number] Surgery, Orthopedic 04/13/24 documented as of this encounter
--- OUTSIDE RECORDS SUMMARY | 2024-12-05 15:01 | XMS_ITS | Encounter Summary ---
Author Organization [facility] Address [address] [place] [address] Care Team Providers Care Apns Name Role Phone Nette Orozco MD Primary Care Prov ider Encounter Details Date Type Department Care Team (Late st Contact Info) Description 05/23/2024 Lab Requisition [facility] - Main Lab [address] [facility] [place] [phone] Michelle Shannon MD [address] [place] [address] Essential (primary) hypertension Social History Tobacco Use Types Packs/Day Years Used Date Smoking Tobacco: Never Smokeless Tobacco: Never Alcohol Use Standard Drinks/Week Comments Yes 0 (1 standard drink = 0.6 oz pur e alcohol) Comments No Sex and Gender Information Value Date Recorded Sex Assigned at Not on file Legal Sex Female 4:13 PM EST Gender Identity Not on file Sexual Orientation Not on file documented as of this encounter Plan of Treatment Upcoming Encounters Date Type Department Care Team (Late st Contact Info) Description 01/01/2025 10:00 AM EDT Ancillary Procedure [facility] [address] [place] [address] 01/03/2025 10:45 AM EDT Office Visit Adult Medicine - [place] [address] [place] [phone] Kalen Saavedra PA [address] [place] [address] 03/16/2025 9:30 AM EST Office Visit Vascular Surgery - [place] [address] [facility] [address] [place] [address] Kadie Barros PA [address] [facility] [address] [place] [address] documented as of this encounter Visit Diagnoses Diagnosis Essential (primary) hypertension Unspecified essential hypertension documented in this encounter Care Teams Apns Relationship Specialty Start Date End Date Nette Orozco MD [address] [place] [address] PCP - General Internal Medicine 02/15/24 documented as of this encounter
--- OUTSIDE RECORDS SUMMARY | 2024-12-05 15:01 | XMS_ITS | Encounter Summary ---
Author Organization [facility] Address [address] [place] [address] Care Team Providers Care Hand Pleater Name Role Phone Nette Orozco MD Primary Care Prov ider Encounter Details Date Type Department Care Team (Late st Contact Info) Description 05/17/2024 Lab Requisition [facility] - Main Lab [address] [facility]ly [facility] [place] [address] Michelle Shannon MD [address] [place] [address] Chronic kidney disease, stage 3 unspecified (CMS/HCC V24, CMS/HCC V28) Social History Tobacco Use Types Packs/Day Years [...] Encounters Date Type Department Care Team (Late Contact Info) Description 01/01/2025 10:00 AM EDT Ancillary Procedure [facility] - [address] [place] [phone] 01/03/2025 10:45 AM EDT Office Visit Adult Medicine - [place] [address] [place] [phone] Kalen Saavedra PA [address] [place] [address] 03/16/2025 9:30 AM EST Office Visit Vascular Surgery - [place] [address] [place] [address] Kadie Barros PA [address] [place] [address] documented as of this encounter Procedures Procedure Name Priority Date/Time Associated Diagnosis Comments COMPLETE BLOOD COUNT Routine 05/17/2024 6:46 AM EDT Chronic kidney disease, stage 3 unspecified (CMS/HCC) THYROID STIMULATING HORMONE Routine 05/17/2024 6:46 AM EDT Chronic kidney disease, stage 3 unspecified (CMS/HCC) FOLATE Routine 05/17/2024 6:46 AM EDT Chronic kidney disease, stage 3 unspecified (CMS/HCC) VITAMIN B12 Routine 05/17/2024 6:46 AM EDT Chronic kidney disease, stage 3 unspecified (CMS/HCC) COMPREHENSIVE METABOLIC PANEL Routine 05/17/2024 6:46 AM EDT Chronic kidney disease, stage 3 unspecified (CMS/HCC) documented in this encounter Results * Folate (05/17/2024 6:46 AM EDT) Folate 11.3 2.8 - 17.0 ng/ml LAB CHEMISTRY METHOD 05/17/2024 10:44 AM EDT [facility] ([facility]) [facility] Blood Venous blood specimen / Unknown Venipuncture / Unknown 05/17/2024 6:46 AM EDT 05/17/2024 9:18 AM EDT us Michelle Shannon MD LAB BLOOD ORDERABLES Final Resul t [facility] [address] [place] [address], [place] [phone] * Vitamin B12 (05/17/2024 6:46 AM EDT) [facility] Vitamin B-12 420 250 - 900 pcg/mL LAB CHEMISTRY METHOD 05/17/2024 10:44 AM EDT [facility] Blood Venous blood specimen / Unknown Venipuncture / Unknown 05/17/2024 6:46 AM EDT 05/17/2024 9:18 AM EDT us Michelle Shannon MD LAB BLOOD ORDERABLES Final Resul t Performing Organization Address City/[facility]/ZIP Co de Phone Number [facility] [address] [place] [address], [place] [phone] * Thyroid stimulating hormone (05/17/2024 6:46 AM EDT) [facility] TSH 1.01 0.40 - 4.00 mcIU/mL LAB CHEMISTRY METHOD 05/17/2024 5:57 PM EDT [facility] Blood Venous blood specimen / Unknown Venipuncture / Unknown 05/17/2024 6:46 AM EDT 05/17/2024 9:18 AM EDT us Michelle Shannon MD LAB BLOOD ORDERABLES Final Resul t [facility] [address] [place] [address], [place] [phone] * (ABNORMAL) Comprehensive metabolic panel (05/17/2024 6:46 AM EDT) [facility] Sodium 144 133 - 145 mmol/L LAB CHEMISTRY METHOD 05/17/2024 10:21 AM EDT [facility] Potassium 4.5 3.5 - 5.5 mmol/L LAB CHEMISTRY METHOD 05/17/2024 10:[address] [facility] Chloride 107 96 - 110 mmol/L LAB CHEMISTRY METHOD 05/17/2024 10:[address] [facility] CO2 29 21 - 32 mmol/L LAB CHEMISTRY METHOD 05/17/2024 10:[address] [facility] Anion Gap 8 3 - 11 LAB CHEMISTRY METHOD 05/17/2024 10:[address] [facility] Glucose 85 70 - 100 mg/dL LAB CHEMISTRY METHOD 05/17/2024 10:[address] [facility] BUN 26(H) 5 - 25 mg/dL LAB CHEMISTRY METHOD 05/17/2024 10:[address] [facility] Creatinine 1.01 0.50 - 1.10 mg/dL LAB CHEMISTRY METHOD 05/17/2024 10:[address] [facility] eGFR 60 >=60 mL/min/1. 73m2 LAB CHEMISTRY METHOD 05/17/2024 10:[address] [facility] Comment:Calculation based on the Chronic Kidney Disease Epidemiology Collaboration (CKD-EPI) equation refit without adjustment for race. BUN/Creatinine Ratio 25.7 LAB CHEMISTRY METHOD 05/17/2024 10:[address] [facility] Calcium 8.8 8.5 - 10.5 mg/dL LAB CHEMISTRY METHOD 05/17/2024 10:[address] [facility] AST (SGOT) 22 10 - 42 unit/L LAB CHEMISTRY METHOD 05/17/2024 10:[address] [facility] ALT (SGPT) 31 10 - 60 unit/L LAB CHEMISTRY METHOD 05/17/2024 10:[address] [facility] Alkaline Phosphatase 64 42 - 121 unit/L LAB CHEMISTRY METHOD 05/17/2024 10:[address] [facility] Total Protein 5.8(L) 6.0 - 8.0 g/dL LAB CHEMISTRY METHOD 05/17/2024 10:21 AM EDT [facility] Albumin 2.6(L) 3.2 - 5.0 g/dL LAB CHEMISTRY METHOD 05/17/2024 10:21 AM EDT [facility] Total Bilirubin 0.3 0.0 - 1.4 mg/dL LAB CHEMISTRY METHOD 05/17/2024 10:21 AM T [facility] Blood Venous blood specimen / Unknown Venipuncture / Unknown 05/17/2024 6:46 AM EDT 05/17/2024 9:18 AM EDT us Michelle Shannon MD LAB BLOOD ORDERABLES Final Resul t [facility] [address] [place] [address], * (ABNORMAL) Complete blood count (05/17/2024 6:46 AM EDT) WBC 7.6 4.8 - 10.8 K/mcL LAB HEMETOLOGY METHOD 05/17/2024 9:[address] [facility] RBC 3.80 3.80 - 4.80 M/mcL LAB HEMETOLOGY METHOD 05/17/2024 9:[address] [facility] Hemoglobin 11.1(L) 11.5 - 16.0 g/dL LAB HEMETOLOGY METHOD 05/17/2024 9:57 AM EDT [facility] Hematocrit 35.9 35.0 - 47.0 % LAB HEMETOLOGY METHOD 05/17/2024 9:[address] [facility] MCV 95.7 79.0 - 98.0 FL LAB HEMETOLOGY METHOD 05/17/2024 9:[address] [facility] MCH 29.6 27.0 - 32.0 pcg LAB HEMETOLOGY METHOD 05/17/2024 9:57 AM EDT [facility] MCHC 30.9(L) 32.0 - 37.0 g/dL LAB HEMETOLOGY METHOD 05/17/2024 9:57 AM EDT [facility] RDW 13.2 11.0 - 15.0 % LAB HEMETOLOGY METHOD 05/17/2024 9:57 AM EDT [facility] Platelets 389 130 - 400 K/mcL LAB HEMETOLOGY METHOD 05/17/2024 9:57 AM EDT [facility] MPV 9.5 7.0 - 11.0 FL LAB HEMETOLOGY METHOD 05/17/2024 9:57 AM EDT [facility] NRBC 0.0 <1.0 % LAB HEMETOLOGY METHOD 05/17/2024 9:57 AM EDT [facility] NRBC Absolute 0.00 <0.10 K/mcL LAB HEMETOLOGY METHOD 05/17/2024 9:57 AM EDT [facility] Blood Venous blood specimen / Unknown Venipuncture / Unknown 05/17/2024 6:46 AM EDT 05/17/2024 9:18 AM EDT us Michelle Shannon MD LAB BLOOD ORDERABLES Final Resul t [facility] [address] [place] [address], documented in this encounter Visit Diagnoses Diagnosis Chronic kidney disease, stage 3 unspecified (CMS/HCC V24, CMS/HCC V28) documented in this encounter Care Teams Hand Pleater Relationship Specialty Start Date End Date Nette Orozco MD [address] [place] [id number] PCP - General Internal Medicine 02/15/24 documented as of this encounter
--- OUTSIDE RECORDS SUMMARY | 2024-12-05 15:01 | XMS_ITS | Encounter Summary ---
Author Organization [facility] Address [address] [place] [address] Care Team Providers Care Chro Name Role Phone Nette Orozco MD Primary Care Pr ovider Bin Morris MD Unavailable [phone] Encounter Details Date Type Department Care Team (Late st Contact Info) Description 04/26/2024 Scanned Document [facility] [address] [place] [address] Ana Pozo [address] [place] [id number] Social History Tobacco Use Types Packs/Day Years [...] on filedocumented in this encounter Care Teams Chro Relationship Specialty Start Date End Date Nette Oroczo MD PCP - General Internal Medicine 01/18/24 Bin Morris MD [address] [place] [address] Surgery, Orthopedic 04/13/24 documented as of this encounter
--- OUTSIDE RECORDS SUMMARY | 2024-12-05 15:01 | XMS_ITS | Clinical Summary ---
Author Organization [facility] Address [address] [place] [address] Care Team Providers Care Book Author Name Role Phone Nette Orozco MD Primary Care Pr ovider Bin Morris MD Unavailable [phone] Allergies Active Allergy Reactions Criticality Noted Date Comments Morphine GI Intolerance/Nausea/Vomiting Low 01/17 Medications furosemide (LASIX) 20 MG tablet Take 1 tablet (20 mg total) by mouth every morning. 02/14/20 24 Active lisinopril-hydroCH LOROthiazide (PRINZIDE,ZESTORET IC) 20-25 MG per tablet Take 1 tablet by mouth every morning. 02/21/20 24 Active Multiple Vitamins-Minerals (Emergen-C Turmeric & Rosalee) Chew Tab Chew. gummy Active MISC MEDICATION/NEUTRAC EUTICAL by Does not apply route. Nervive Cream Active diclofenac (VOLTAREN) 1 % gel Apply 2 g topically 4 (four) times a day as needed for pain or muscle/joint pain. Use dosing card to measure dose. Apply to entire affect area. Active methocarbamol (ROBAXIN) 500 MG tabletIndications: Osteoarthritis of left ankle, unspecified osteoarthritis type Take 1 tablet (500 mg total) by mouth 4 times daily (every 6 hours) as needed for muscle spasms. 05/12/19 25 Active cholecalciferol (CHOLECALCIFEROL) 25 MCG (1000 UT) tabletIndications: Osteoarthritis of left ankle, unspecified osteoarthritis type Take 2 tablets (2,000 Units total) by mouth daily. 05/12/19 25 Active aspirin enteric coated (ECOTRIN LOW STRENGTH) 81 MG EC tabletIndications: Osteoarthritis of left ankle, unspecified osteoarthritis type Take 1 tablet (81 mg total) by mouth every 12 (twelve) hours around the clock. 05/12/19 25 Active acetaminophen (TYLENOL) 325 MG tabletIndications: Osteoarthritis of left ankle, unspecified osteoarthritis type Take 3 tablets (975 mg total) by mouth every 8 (eight) hours around the clock. 05/12/19 25 Active oxyCODONE (ROXICODONE) 5 MG immediate release tabletIndications: Osteoarthritis of left ankle, unspecified osteoarthritis type Take 1-2 tablets (5-10 mg total) by mouth every 4 (four) hours as needed for severe pain or moderate pain. Max Daily Amount: 60 mg 05/12/19 25 Active polyethylene glycol 17 g packetIndications: Osteoarthritis of left ankle, unspecified osteoarthritis type Take 1 packet (17 g total) by mouth daily as needed for constipation (May start on Hospital Day 1). 05/12/19 25 Active senna-docusate (SENNA-S) 8.6-50 MGIndications:Oste oarthritis of left ankle, unspecified osteoarthritis type Take 2 tablets by mouth 2 (two) times a day. 05/12/19 25 Active SUPPLY DME MISCIndications:Ar thritis of left subtalar joint Jennifer Brace 1 each 08/30/19 25 Active Active Problems Problem Noted Date Diagnosed Date Osteoarthritis 05/08/2024 Endometrial cancer, grade I 08/07/2019 Assessment & Plan (04/20/2024 8:49 AM EST): Details ??? HTN (hypertension) Assessment & Plan (04/20/2024 8:48 AM EST): ? Controlled. Patient instructed to hold lasix & lisinopril-hydrochlorothiazide the day of surgery. CKD (chronic kidney disease) Assessment & Plan (04/20/2024 8:48 AM EST): Labs? Varicose vein of leg Assessment & Plan (04/20/2024 8:51 AM EST): Bilateral with venous insufficiency. Has seen vascular at [place] 03/17/24. Had venous duplex- reflux noted in both extremities. Considering surgery after ankle fusion. Hyperlipidemia Assessment & Plan (04/20/2024 8:51 AM EST): ? Lifestyle changes GERD (gastroesophageal reflux disease) Assessment & Plan (04/20/2024 8:52 AM EST): ? Meds Encounters Date Type Department Care Team Description 10/31/2024 10:00 AM EDT Clinical Support [facility] [address] [address] Rosa Serna APRN Arthritis of left subtalar joint (Primary Dx) 10/24/2024 9:10 AM EDT Ancillary Procedure [facility] [address] [address] 10/24/2024 9:00 AM EDT Office Visit [facility] [address] [address] Bin Morris MD Arthritis of left subtalar joint (Primary Dx) 09/27/2024 Scanned Document [facility] [address] [address] Ana Pozo from Last 3 Months Immunizations Immunization Administration Dates Next Due Influenza, Trivalent (FLUAD) Adjuvanted Preservative Free IM 65 years and older 11/26/2023,01/15/2023,12/30/2020,2019 Social History Tobacco Use Types Packs/Day Years Used Date Smoking Tobacco: Never Passive Smoke Exposure: Past Smokeless Tobacco: Never Tobacco Cessation:Counseling Given: Not Answered Alcohol Use Standard Drinks/Week Comments Yes 1 [...] Orientation Heterosexual (straight) 04/19 2:26 PM EST Last Filed Vital Signs Vital Sign Reading Time Taken Comments Blood Pressure 130/70 05/16/2024 2:04 PM EDT Pulse 80 05/16/2024 2:04 PM EDT Temperature 36.4 C (97.6 F) 05/16/2024 2:04 PM EDT Respiratory Rate 16 05/16/2024 2:04 PM EDT Oxygen Saturation 98% 05/16/2024 2:04 PM EDT Inhaled Oxygen Concentration - - Weight 85.1 kg (187 lb 9.6 oz) 05/08/2024 8:00 A M EST Height 159.3 cm (5' 2.7 ) 05/08/2024 3:00 PM EST Body Mass Index 33.55 05/08/2024 8:00 AM EST Plan of Treatment Health Maintenance Due Date Last Done Comments Hepatitis C Virus Screening 1955 Chronic Controlled Substance Toxicology Screening 1972 Controlled Substance Agreement Initial and Annual Review 1972 DTaP/Tdap/Td Vaccines (1 - Tdap) 1973 Pneumococcal Vaccines 50+ (1 of 2 - PCV) 1973 Zoster (Shingles) Vaccine (1 of 2) 1973 Mammogram 1994 Colonoscopy 11/17/1999 RSV Vaccine 60 years and older and Patients (1 - Risk 60-74 years 1-dose series) 2014 DXA Bone Density (Females,Ages 65 and older) 11/17/2019 Chronic Controlled Substance User PDMP Review 07/11/2024 04/12/2024 Influenza Vaccine 10/06/2024 11/26/2023, , 01/06/2022, Additional history exists COVID-19 Vaccine ( season) 2024 01/06/2022, 05/17/2020, 04/30/2020 Advance Care Planning Completed 05/16/2024 Hepatitis B Vaccines Aged Out No long er eligible based on patient's age to complete this topic Medical Devices Implanted Type Area Wine Steward Device Identifier Shelf Expiration Date Model / Serial / Lot [id number] Filler Bone Void 5cc Dbx Algrf Putty Frzdr - [id number] Implanted:Qty : 1 on 05/08/2024 by Bin Morris MD at [facility] Void Filler Left: Ankle [employer]OU 01/10/2026 [id number] / [id number] / [id number] Ttc Fusion Nail [id number] Implanted:Qty : 1 on 05/08/2024 by Bin Morris MD at [facility] Left: Ankle [employer] 08/05/20261199-03- 022 / / [id number] Headless Pa Screw Implanted:Qty : 1 on 05/08/2024 by Bin Morris MD at [facility] Left: Ankle [employer] 12/05/20265 070 / / [id number] Dynnl Hd Omega Scrw [id number] Implanted:Qty : 1 on 05/08/2024 by Bin Morris MD at [facility] Left: Ankle [employer] 02/04/2027 1199-04-12 045 / / [id number] 4mm 38mm Screw Implanted:Qty : 1 on 05/08/2024 by Bin Morris MD at [facility] Left: Ankle [employer] 06/06/2028 [id number] / / [id number] 4mm 38mm Screw Implanted:Qty : 1 on 05/08/2024 by Bin Morris MD at [facility] Left: Ankle [employer] 06/06/2028 [id number] / / [id number] 5mm X 25mm Head Omega Screw Implanted:Qty : 1 on 05/08/2024 by Bin Morris MD at [facility] Left: Ankle [employer] 09/04/20255 025 / / [id number] 5mm X 25mm Head Omega Screw Implanted:Qty : 1 on 05/08/2024 by Bin Morris MD at [facility] Left: Ankle [employer] 11/05/2026 1199-04-12 025 / / [id number] Procedures Procedure Name Priority Date/Time Associated Diagnosis Comments XR ANKLE 2 VIEWS-LEFT Routine 10/24/2024 9:13 AM EDT Arthritis of left subtalar joint from Last 3 Months Results * XR Ankle 2 views-Left (10/24/2024 9:13 AM EDT) Narrative OA - 10/24/2024 9:13 AM EDT This exam was performed in office at [facility] and images reviewed by orthopedic provider. Any findings are documented within ambulatory encounter note on date of service. 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 Banner dharmesh Care Teams Book Author Relationship Specialty Start Date End Date Nette Orozco MD PCP - General Internal Medicine 01/18/24 Bin Morris MD [address] [place] [address] Surgery, Orthopedic 04/13/24
--- OUTSIDE RECORDS SUMMARY | 2024-12-05 15:01 | XMS_ITS | Patient Health Record ---
Author Organization [facility] Address [address] [address] Care Team Providers Care Gas Line Servicer Name Role Phone Enrique DARLING, Katalina Primary Care Provid er Unavailable Zuhair Jones Unavailable [phone] Kadie Lou Unavailable [phone] Allergies Allergen (clinical drug ingredient) Drug/Non Drug Allergy documented on EMR Reaction Allergy Type Onset Date Status morphine Morphine Unknown Drug Allergy Active Reason For Referral No Information Medications Medication SIG (Take, Route, Frequency, Duration) Notes Start Date End Date Status Adalimumab 40 MG/0.4ML as directed Subcutaneous Active traMADol HCl 50 MG 1 tablet as needed O rally Once a day 12/03/2023 Active oxyCODONE HCl 10 MG 1 tablet as needed O rally every 6 hrs 12/03/2023 Active Lisinopril-hydroCHLOROthi azide 20-25 MG 1 tablet Orally Once a day; Duration: 30 day(s) 12/03/2023 Active Problems Problem Type SNOMED Code ICD Code Onset Dates Problem Status W/U Status Risk Notes Problem Malignant neoplasm of corpus uteri, excluding isthmus (675686452) Malignant neoplasm of endometrium (C54.1) Active confirmed Problem Hyperlipidemia (49040797) Hyperlipidemia, unspecified (E78.5) Active confirmed Problem Stress and adjustment reaction (disorder) (159935146) Reaction to severe stress, unspecified (F43.9) Active confirmed Problem Essential hypertension (87420214) Essential (primary) hypertension (I10) Active confirmed Problem Gastro-esophageal reflux disease without esophagitis (576850061) Gastro-esophageal reflux disease without esophagitis (K21.9) Active confirmed Problem Rheumatoid arthritis (66144671) Rheumatoid arthritis without rheumatoid factor, unspecified site (M06.00) Active confirmed Problem Localized, primary osteoarthritis of the hand () Bilateral primary osteoarthritis of first carpometacarpal joints (M18.0) Active confirmed Problem Localized, primary osteoarthritis of the hand () Primary osteoarthritis, right hand (M19.041) Active confirmed Problem Localized, primary osteoarthritis of the hand () Primary osteoarthritis, left hand (M19.042) Active confirmed Problem Lumbosacral spondylosis without myelopathy (15796012) Spondylosis without myelopathy or radiculopathy, lumbar region (M47.816) Active confirmed Problem Full thickness rotator cuff tear (049191376) Complete rotator cuff tear or rupture of unspecified shoulder, not specified as traumatic (M75.120) Active confirmed Problem Urge incontinence of urine (55230550) Urge incontinence (N39.41) Active confirmed Problem Contusion, lower leg (06891335) Contusion of left lower leg, subsequent encounter (S80.12XD) Active confirmed Problem Open wound of left lower leg (8231150519509901 6) Unspecified open wound, left lower leg, subsequent encounter (S81.802D) Active confirmed Problem Artificial knee joint present (436090895607) Presence of unspecified artificial knee joint (Z96.659) Active confirmed Vital Signs Heart Rate 79 /min 01/12/2024 Temperature 97.7 degrees Fahrenheit 01/12/2024 Respiratory Rate 16 /min 01/12/2024 Oximetry 97 % 01/12/2024 Blood pressure diastolic 70 mm Hg 01/12/2024 Weight-kg 83.91 kg 01/12/2024 Height 65 in 01/12/2024 Blood pressure systolic 128 mm Hg 01/12/2024 Weight 185 lbs 01/12/2024 BMI 30.78 kg/m2 01/12/2024 Encounters Encounter Location Date Provider Diagnosis [facility] [address] [facility] [address] [place] [address] 12/06/2023 Jooyun Jones Unspecified open wound, left lower leg, initial encounter S81.802A ; Contusion of left lower leg, initial encounter S80.12XA ; Essential (primary) hypertension I10 and Hyperlipidemia, unspecified E78.5 [place] [address] [address] 12/13/2023 Jooyun Jones Unspecified open wound, left lower leg, subsequent encounter S81.802D ; Essential (primary) hypertension I10 ; Hyperlipidemia, unspecified E78.5 and Contusion of left lower leg, subsequent encounter S80.12XD [facility] [address] [address] 12/14/2023 Jooyun Jones Unspecified open wound, left lower leg, subsequent encounter S81.802D ; Essential (primary) hypertension I10 ; Hyperlipidemia, unspecified E78.5 ; Contusion of left lower leg, subsequent encounter S80.12XD and Leg edema R60.0 [place] [address] [address] 12/20/2023 Jooyun Jones Unspecified open wound, left lower leg, subsequent encounter S81.802D ; Essential (primary) hypertension I10 ; Hyperlipidemia, unspecified E78.5 and Contusion of left lower leg, subsequent encounter S80.12XD [address] [address] 12/27/2023 Kadie Lou Unspecified open wound, left lower leg, subsequent encounter S81.802D and Contusion of left lower leg, subsequent encounter S80.12XD [address] [address] 01/03/2024 Jooyun Jones Unspecified open wound, left lower leg, subsequent encounter S81.802D and Contusion of left lower leg, subsequent encounter S80.12XD [address] [address] 01/12/2024 Jooyun Jones Unspecified open wound, left lower leg, subsequent encounter S81.802D and Contusion of left lower leg, subsequent encounter S80.12XD [facility] [address] [address] 12/07/2023 Jooyun Jones Assessments Encounter Date Diagnosis (ICD Code) Assessment Notes Treatment Notes Treatment Clinical Notes Section Notes 12/06/2023 Contusion of left lower leg, initial encounter (ICD-10 - S80.12XA) 12/06/2023 Unspecified open wound, left lower leg, initial encounter (ICD-10 - S81.802A) On exam today she was afebrile and the remainder of his vital signs were within normal limits. We then removed the dressings and I examined the wound area. The left leg wound is full thickness, still has part of loose skin flap covered. There was some granulation, blood clot and slough on the wound bed with peripheral wound area maceration. The surround the wound has erythema, but no s/s of underlying infectious property and/or foul odor noted. After examination, I discussed the indication of the debridement and she was agreeable to the procedure. Then, I performed debridement to remove the above devitalized tissue and she tolerated the procedure well. The wound site was then cleansed with wound cleanser and thereafter, Aquacel applied onto the wound site and zinc to cris wound areas. The site were then covered with a dry dressing. Patient was educated to protect wound site continue performing above dressing changes regularly. S/S of infection reviewed and when to go to ED. Patient will have FU in one week, and will obtain JEANNINE. Patient verbalized understand and questions or concerns addressed at this time. I, RICKEY Moy, examined, evaluated , and treated the patient. Dr. Wilbert Lockett was available for any questions or concerns that I may have had.: A total of 40 minutes was spent on this visit (face to face and non face to face) documenting HPI and performing physical exam, reviewing previous notes and testing, reviewing and adjusting treatment plan, counseling the patient on treatment choices, disease process, expected outcomes, and documenting the findings in the note. 12/13/2023 Essential (primary) hypertension (ICD-10 - I10) 12/13/2023 Unspecified open wound, left lower leg, subsequent encounter (ICD-10 - S81.802D) 12/14/2023 Essential (primary) hypertension (ICD-10 - I10) 12/14/2023 Unspecified open wound, left lower leg, subsequent encounter (ICD-10 - S81.802D) 12/20/2023 Unspecified open wound, left lower leg, subsequent encounter (ICD-10 - S81.802D) On exam today she was afebrile and the remainder of his vital signs were within normal limits. We then removed the dressings and I examined the wound area. The left leg wound is improving based on measuremetn and assessment. There was graunlation tissue with fibrous tissue periphery. The surround the wound has erythema, but no s/s of underlying infectious property and/or foul odor noted. After examination, I discussed the indication of the debridement and she was agreeable to the procedure. Then, I performed debridement to remove the above devitalized tissue and she tolerated the procedure well. The wound site was then cleansed with wound cleanser and thereafter, puracol applied onto the wound site and zinc to cris wound areas. The site were then covered with a dry dressing. Patient was educated to protect wound site continue performing above dressing changes regularly. JEANNINE result reviewed right, 0.96, left 1, and TBI right 0.66 and left 0.60. Donnas' wound improving and has small amount of drainage noted. Therefore we will change the treatment to puracol. S/S of infection reviewed and when to go to ED. Patient will have FU in one week. Patient verbalized understand and questions or concerns addressed at this time. I, JOSE ALFREDO Moy, examined, evaluated , and treated the patient. Dr. Wilbert Lockett was available for any questions or concerns that I may have had. 12/27/2023 Contusion of left lower leg, subsequent encounter (ICD-10 - S80.12XD) 12/27/2023 Unspecified open wound, left lower leg, subsequent encounter (ICD-10 - S81.802D) On exam today she was afebrile and the remainder of his vital signs were within normal limits. We then removed the dressings and I examined the wound area. The left leg wound is improving nicely but has significant callused tissue. I performed debridement after multiple applications of lidocaine, and she tolerated the procedure well. After cleaning the wound there is mixed epithelial and granular tissue remaining and exposed without findings to indicate infection. Nursing applied zinc to the periwound, Puracol f/b DCD. Lastly, a Tubigrip was applied toes to below the knees. I recommended she continue to perform dressing changes, but only on Wednesday and , wrapping with a bag when showering to avoid getting the wound or dressing wet. We discussed elevation and compression, Tubigrip on in AM and off @ HS or if she works overnights, ensure she is wearing it during waking hours and certainly while on her feet. She will follow up in about one week to monitor her progress and will reach out in the interim w any questions or concerns. Patient and nursing agree w plan of care 01/03/2024 Unspecified open wound, left lower leg, subsequent encounter (ICD-10 - S81.802D) On exam today she was afebrile and the remainder of his vital signs were within normal limits. We then removed the dressings and I examined the wound area. The left leg wound is improving nicely but has significant callused tissue. I performed debridement, and she tolerated the procedure well. After cleaning the wound there is mixed epithelial and granular tissue remaining and exposed without findings to indicate infection. Nursing applied zinc to the periwound, Puracol f/b DCD. Lastly, a Tubigrip was applied toes to below the knees. I recommended she continue to perform dressing changes, but only on Wednesday and , wrapping with a bag when showering to avoid getting the wound or dressing wet. Advised patient to continue to use Tubigrip on in AM and off @ HS or if she works overnights, ensure she is wearing it during waking hours and certainly while on her feet. She will follow up in about one week to monitor her progress and will reach out in the interim w any questions or concerns. Patient and nursing agree w plan of care. I, JOSE ALFREDO Moy, examined, evaluated , and treated the patient. Dr. Wilbert Lockett was available for any questions or concerns that I may have had.: 01/12/2024 Unspecified open wound, left lower leg, subsequent encounter (ICD-10 - S81.802D) On exam today she was afebrile and the remainder of his vital signs were within normal limits. We then removed the dressings and I examined the wound area. The left leg wound is resolved and scabbed over it. Advised patient to continue to use Tubigrip on in AM and off @ HS or if she works overnights, ensure she is wearing it during waking hours and certainly while on her feet. A total of 20 minutes was spent on this visit (face to face and non face to face) documenting HPI and performing physical exam, reviewing previous notes and testing, reviewing and adjusting treatment plan, counseling the patient on treatment choices, disease process, expected outcomes, and documenting the findings in the note. I, Zuhair Jones, [facility], examined, evaluated , and treated the patient. Dr. Wilbert Lockett was available for any questions or concerns that I may have had.: 01/12/2024 Contusion of left lower leg, subsequent encounter (ICD-10 - S80.12XD) 12/20/2023 Essential (primary) hypertension (ICD-10 - I10) 01/03/2024 Contusion of left lower leg, subsequent encounter (ICD-10 - S80.12XD) 12/14/2023 Hyperlipidemia, unspecified (ICD-10 - E78.5) 12/13/2023 Hyperlipidemia, unspecified (ICD-10 - E78.5) 12/06/2023 Essential (primary) hypertension (ICD-10 - I10) 12/06/2023 Hyperlipidemia, unspecified (ICD-10 - E78.5) 12/13/2023 Contusion of left lower leg, subsequent encounter (ICD-10 - S80.12XD) 12/14/2023 Contusion of left lower leg, subsequent encounter (ICD-10 - S80.12XD) 12/20/2023 Hyperlipidemia, unspecified (ICD-10 - E78.5) 12/20/2023 Contusion of left lower leg, subsequent encounter (ICD-10 - S80.12XD) 12/14/2023 Leg edema (ICD-10 - R60.0) 12/13/2023 Other On exam today she was afebrile and the remainder of his vital signs were within normal limits. We then removed the dressings and I examined the wound area. The left leg wound is stable, full thickness, and the loose skin flap dried. There was some granulation, blood clot and slough on the wound bed with peripheral wound area maceration. The surround the wound has erythema, but no s/s of underlying infectious property and/or foul odor noted. After examination, I discussed the indication of the debridement and she was agreeable to the procedure. Then, I performed debridement to remove the above devitalized tissue and she tolerated the procedure well. The wound site was then cleansed with wound cleanser and thereafter, Aquacel applied onto the wound site and zinc to cris wound areas. The site were then covered with a dry dressing. Patient was educated to protect wound site continue performing above dressing changes regularly. S/S of infection reviewed and when to go to ED. Patient will have FU in one week, and will obtain JEANNINE. Patient verbalized understand and questions or concerns addressed at this time. I, JOSE ALFREDO Moy, examined, evaluated , and treated the patient. Dr. Wilbert Lockett was available for any questions or concerns that I may have had. 01/12/2024 Other I, Maynor Lockett MD confirm that Zuhair VELIZ understands and adheres to the guidelines of the established clinical protocols in the office. I confirm the above care provided was rendered under my general supervision as initially planned and subsequently discussed and supervised by me. Plan Of Treatment No Information Insurance Providers Payer Name Payer Address Payer Phone Subscriber Number Group Number Insured Name Patient Relationship to Insured Coverage Start Date Coverage End Date [facility] [address] [place], [place] [id number] Swati Chang Self - patient is the insured 2 Medical (General) History Medical History History ICD Code Osteoarthritis of both knees M17.0 Complete rotator cuff tear o r rupture of unspecified shoulder, not specified as traumatic M75.120 Rheumatoid arthritis without rheumatoid factor, unspecified site M06.00 Essential (primary) hypertension I10 Presence of unspecified artificial knee joint Z96.659 Spondylosis without myelopathy or radicu lopathy, lumbar region M47.816 Hyperlipidemia, unspecified E78.5 assisted (current) use of opiate analge sic Z79.891 Degenerative joint disease M19.90 Malignant neoplasm of endometrium C54.1 Primary osteoarthritis, right hand M19.0 41 Primary osteoarthritis, left hand M19.04 2 Chronic kidney disease, stage 3 N18.30 Bilateral primary osteoarthritis of firs t carpometacarpal joints M18.0 Reaction to severe stress, unspecified F 43.9 Radiculopathy, lumbosacral region M54.17 Lumbar spinal stenosis M48.061 History of fracture of left hip Z87.81 Pain in unspecified foot M79.673 Morbid obesity E66.01 Hematuria, unspecified R31.9 Urge incontinence N39.41 Gastro-esophageal reflux disease without esophagitis K21.9 Low back pain M54.50 Surgical History Surgery Date(Month/Year) TOTAL KNEE ARTHROPLASTY repair of patellar FX
--- OUTSIDE RECORDS SUMMARY | 2024-12-05 15:01 | XMS_ITS | Clinical Summary ---
Author Organization [facility] Address [address] [place], [place] [id number] Care Team Providers Care Actuarial Analyst Name Role Phone Nette Orozco MD [...] 69 04/01/2022 12:35 AM EST Temperature 36.7 C (98.1 F) 04/01/2022 12:35 AM EST Respiratory Rate 17 04/01/2022 12:35 AM EST [...] 09/01/2023 08/31/2013 COVID-19 Vaccine (4 - season) 2024 01/10/2021, 05/22/2020, 04/30/2020 Influenza Vaccine (#1) 2024 , 02/15/2020, 03/10/2019, Additional history exists Pneumococcal [...] age to complete this topic Care Teams Actuarial Analyst Relationship Specialty Start Date End Date Nette Orozco MD PCP - General Internal Medicine 04/10/22
--- OUTSIDE RECORDS SUMMARY | 2024-12-05 15:01 | XMS_ITS | Encounter Summary ---
Author Organization [facility] Address [address] [place] [address] Care Team Providers Care Marketing Operations Specialist Name Role Phone Nette Orozco MD Primary Care Pr ovider Bin Morris MD Unavailable Encounter Details Date Type Department Care Team (Late st Contact Info) Description 04/14/2024 Scanned Document [facility] [address] [place] [address] Bin Morris MD [address] [place] [address] Social History Tobacco Use Types Packs/Day Years [...] on filedocumented in this encounter Care Teams Marketing Operations Specialist Relationship Specialty Start Date End Date Nette Orozco MD PCP - General Internal Medicine 01/18/24 Bin Morris MD [address] [place] [address] Surgery, Orthopedic 04/13/24 documented as of this encounter
--- OUTSIDE RECORDS SUMMARY | 2024-12-05 15:01 | XMS_ITS ---
Author Organization [facility] Address [address] [place] [address] Care Team Providers Care Cloth Painter Name Role Phone Nette Orozco MD Primary Care Pr ovider Bin Morris MD Unavailable [phone] Active Problems Problem Noted Date Diagnosed Date [...] with venous insufficiency. Has seen vascular at [place] 03/17/24. Had venous duplex- reflux noted in both extremities. Considering surgery after ankle fusion. Hyperlipidemia Assessment & Plan (04/20/2024 8:51 AM EST): ? Lifestyle changes GERD (gastroesophageal reflux disease) Assessment & Plan (04/20/2024 8:52 AM EST): ? Meds Current Treatment and Therapy Plans No current plan information found. Past Treatment and Therapy Plans No past plan information found. Lifetime Dose Tracking * Chemical Lifetime Dose Automatic Entry Manual Entr y Dose Area Product(DAP)-Gy-cm2 0.232 Gy-cm2 0.232 Gy-cm 2 0 Gy-cm2
--- OUTSIDE RECORDS SUMMARY | 2024-12-05 15:02 | XMS_ITS | Clinical Summary ---
Author Organization [address] [place] [address] [place] [phone] Phone Care Team Providers Care Acetylene Cutter Name Role Phone Nette Orozco MD Primary Care Prov ider Allergies Active Allergy Reactions Criticality Noted Date Comments Morphine Nausea And Vomiting 07/18/2019 Other 07/29/2011 Seasonal allergies Medications lisinopril-hydroCH LOROthiazide (PRINZIDE,ZESTORET IC) 20-25 mg per tablet Take 1 tablet by mouth 1 (one) time each day. 90 tablet 1 5 Active furosemide (LASIX) 20 mg tablet Take 1 tablet (20 mg total) by mouth 1 (one) time each day. 90 tablet 1 5 Active hydrOXYzine HCL (ATARAX) 10 mg tablet TAKE 1 TO 2 TABLETS BY MOUTH AT BEDTIME NEEDED FOR ANXIETY FOR UP TO 360 DAYS 180 tablet 5 Active oxyCODONE (ROXICODONE) 10 mg immediate release tablet Take 1 tablet (10 mg total) by mouth 1 (one) time each day. Max Daily Amount: 10 mg 28 tablet 5 Active traMADoL (ULTRAM) 50 mg tabletIndications: Osteoarthritis of both hands, unspecified osteoarthritis type,Seronegative rheumatoid arthritis (CMS/HCC V24, CMS/HCC V28) Take 1 tablet (50 mg total) by mouth 3 (three) times a day. AND 1-2 TABLETS AT BEDTIME. 78 tablet 5 Active traMADoL (ULTRAM) 50 mg tabletIndications: Osteoarthritis of both hands, unspecified osteoarthritis type,Seronegative rheumatoid arthritis ([facility] V24, [facility] V28) Take 1 tablet (50 mg total) by mouth 3 (three) times a day. AND 1-2 TABLETS AT BEDTIME. 84 tablet 5 11/08/19 25 Discontin ued(Reord er) Active Problems Problem Noted Date Diagnosed Date Opiate analgesic contract exists 06/01/2024 Status post left foot surgery 06/01/2024 Severe obesity (BMI 35.0-35. 9 with comorbidity) ([facility] V24, [facility] V28) 01/11/2024 Spondylosis of lumbar region without myelopathy or radiculopathy 01/15/2023 Hyperlipidemia 11/13/2021 DJD (degenerative joint disease) 09/26/2020 Endometrial cancer, grade I ([facility] V24, [facility]/ C V28) 08/29/2019 Overview (01/11/2024): AMOR/BSO 09/2019 CKD (chronic kidney disease) stage 3, GFR 30-59 ml/min ([facility] V24, [facility] V28) 11/02/2018 Osteoarthritis of hands, bilateral 11/02/2018 Overview (01/11/2024): mostly at thumbs Primary osteoarthritis of both first carpometaca rpal joints 11/01/2018 Essential hypertension 12/02/2016 Osteoarthritis of both knees 07/07/2012 Overview (01/11/2024): Ian Simmons, Janelle - steroid injections 10/19 - arthroscopic debridement [...] advanced DJD left 2nd MPJ Seronegative rheumatoid arth ritis (CMS/[facility] V24, CMS/[facility] V28) 12/05/2007 Overview (01/11/2024): Onset approx 2004: ankle [...] transforaminal injections with excellent response 11/17- Dr. sEpitia feels hot tub is medically necessary Cymbalta Urge urinary incontinence 07/16/2006 Overview (01/11/2024): Dr. Arias status post Monarc sling '06 Oxybutynin Encounters Date Type Department Care Team Description 09/28/2024 Telephone Adult Medicine [facility] [address] [place] [address] Nette Hughes MD 09/18/2024 10:30 AM EDT Office Visit Adult [facility] [address] [place] [address] Kalen Saavedra PA Opiate analgesic contract exists (Primary Dx); Status post left foot surgery; Essential hypertension; History of total knee arthroplasty, left 09/18/2024 Telephone Adult [facility] [address] [place] [address] Kalen Saavedra PA from Last 3 Months Immunizations Immunization Administration Dates Next Due H1N1 Inj Preservative [...] Pfizer SARS-CoV-2 COVID-19, mRNA, LNP-S, preservative free 05/22/2020,05/17/2020 Pneumococcal conjugate 13 va lent (Prevnar 13, [...] elbow 01/02/2013 DX:Celluliti s of elbow; COMMENT: [facility] admissions History of total knee replacement 05/18/2014 DX:History of total knee replacement; COMMENT: Left- late 2014 Osteoarthritis of hands, bilateral 11/02/2018 DX:Osteoarthritis of hands, bilateral; COMMENT: mostly at thumbs CKD (chronic kidney disease) stage 3, GFR 30-59 ml/min ([facility] V24, [facility] V28) 11/02/2018 DX:CKD (chronic kidney disea se) stage 3, GFR 30-59 ml/min ([facility]) Anxiety state DX:Anxiety state Essential hypertension DX:Essent [...] drink = 0.6 oz pur e alcohol) Housing Instability Answer Date Recorde d Are you worried that in the next 2 months you may not have stable housing? Patient declined 09/11/2024 Food Access & Nutrition Answer Date Rec orded Do you have access to a vari ety of food including fruits and vegetables? Patient declined 09/11/2024 Access to Healthcare Answer Date Record ed Within the last 3 months, quoc [place] many times did you visit the emergency department for your medical care? 0 09/11/2024 Health Literacy Answer Date Recorded How often do you need to hav e someone help you when you read instructions, pamphlets, or other written material from your doctor or pharmacy? Never 09/11/2024 Caregiver: How often do you need to have someone help you when you read instructions, pamphlets, or other written material from your doctor or pharmacy? Not on file 09/11/2024 Financial Risk Answer Date Recorded How hard is it for you to pa y for the very basics like food, housing, medical care, and air conditioning / heating? Patient declined 09/11/2024 Transportation Answer Date Recorded Has the lack of transportati on kept you from meetings, work, or from getting things needed for daily living? No Has the lack of transportati on kept you from medical appointments or from getting medications? No 09/11/2024 Social Isolation Answer Date Recorded How often do you feel lonely or isolated from those around you? Sometimes 09/11/2024 Food Risk Answer Date Recorded Within the past 12 months we worried whether our food would run out before we got money to buy more. Patient declined 025 Within the past 12 months th e food we bought just didn't last and we didn't have money to get more. Not asked 09/2024 Dependent Care Answer Date Recorded Do you need help finding or paying for care for your loved ones. For example, early childhood educator aide or elderly care for an older adult? Patient declined 09/11/2024 Education Answer Date Recorded Do you think completing more education or training, like finishing a GED, going to college, or learning a trade, would be helpful for you? N/A 09/11/2024 Employment and Income Answer Date Recor ded During the last four weeks, have you been actively looking for work? Patient declined 09/11/2024 Living Situation Answer Date Recorded What is your living situation? Unrecognized valu e 09/11/2024 Comments No Sex and Gender Information Value Date Recorded Sex Assigned at Not on file Legal Sex Female 4:13 PM EST Gender Identity Not on file Sexual Orientation Not on file Obstetrics History Last Filed Vital Signs Vital Sign Reading Time Taken Comments Blood Pressure 106/68 09/18/2024 10:31 AM EDT Pulse 64 09/18/2024 10:31 AM EDT Temperature 36.7 C (98.1 F) 09/18/2024 10:31 AM EDT Respiratory Rate - - Oxygen Saturation - - Inhaled Oxygen Concentration - - Weight 90.7 kg (200 lb) 09/18/2024 10:31 AM EDT Height 165.1 cm (5' 5 ) 09/18/2024 10:31 AM EDT Body Mass Index 33.28 09/18/2024 10:31 AM EDT Plan of Treatment Upcoming Encounters Date Type Department Care Team (Late st Contact Info) Description 01/01/2025 10:00 AM EDT Ancillary Procedure [facility] [address] [facility] [address] [place] [address] 01/03/2025 10:45 AM EDT Office Visit Adult Medicine - [place] [address] [place] [address] Kalen Saavedra PA [address] [place] [address] 03/16/2025 9:30 AM EST Office Visit Vascular Surgery - [place] [address] [place] [address] Kadie Barros PA [address] [facility] [address] [place] [address] Health Maintenance Due Date Last Done Comments RSV Immunization Adult Patients (1 - Risk 60-74 years 1-dose series) 2014 Zoster Vaccines (1 of 2) 02/01/2015 12/07/2014 Falls Risk Assessment 02/09/2022 Osteoporosis Screening (Bone Density Screening) 02/09/2022 COVID-19 Vaccine (8 - Pfizer risk season) 2024 11/27/2023, 02/06/2023, 01/06/2022, Additional history exists Influenza Vaccine (#1) 2024 , 01/15/2023, 01/06/2022, Additional history exists Hypertension/CHF/CAD Annual BMP Blood Test 05/17/2025 05/17/2024, 05/09/2024, 05/09/2024, Additional history exists Breast Cancer Screening 05/24/2025 05/25/2023 Pneumococcal Vaccine: 50+ Years (3 of 3 - PCV20 or PCV21) 06/13/2025 06/13/2020, 11/26/2008 Social Influencers of Health Screening 09/11/2025 09/11/2024 Cholesterol Screening (Lipid Panel) 11/12/2026 11/12/2021 Colorectal Cancer Screening: FIT-DNA (Cologuard) 06/09/2027 06/08/2024, 06/08/2024, 06/08/2024 DTaP,Tdap,and Td Vaccines (3 - Td or Tdap) 11/25/2033 11/26/2023, 08/31/2013 Hepatitis C Screening Completed 10/31/2007 Depression Screening Completed 09/11/2024 HIB Vaccines Aged Out No longer eligi [...] patient's age to complete this topic Meningococcal B Vaccine Aged Out No l onger eligible based on patient's age to complete this topic RSV Immunization Patients Under 20 months Aged Out No longer eligible based on patient's age to complete this topic Varicella Vaccines Aged Out No longer eligible based on patient's age to complete this topic Procedures Procedure Name Priority Date/Time Associated Diagnosis Comments ASPARTATE AMINOTRANSFERASE Routine 11/23/2024 2:27 PM EDT LAB COLOGUARD COLON CANCER SCREEN Routine 06/08/2024 7:05 PM EDT Screen for colon cancer COMPREHENSIVE METABOLIC PANEL Routine 05/17/2024 6:46 AM EDT Chronic kidney disease, stage 3 unspecified (CMS/HCC) SCREENING MAMMOGRAPHY BI 2-VIEW BREAST INC CAD Routine 05/25/2023 9:07 AM EDT Personal history of malignant neoplasm of other parts of uterus LIPID PANEL Routine 11/12/2021 HEPATITIS C SCREENING Routine 10/31/2007 from Last 3 Months or Most Recently Relevant to Health Maintenance Results * Aspartate aminotransferase (11/23/2024 2:27 PM EDT) Blood Venous blood specimen / Unknown [facility] LAB BLOOD ORDERABLES Final Res ult * Cologuard?? colon cancer screening (06/08/2024 7:05 PM EDT) COLOGUARD Negative Negative [facility] Comment: NEGATIVE TEST RESULT. A negative Cologuard result indicates a low likelihood that a colorectal cancer (CRC) or advanced adenoma (adenomatous polyps with more advanced pre-malignant features) is present. The chance that a person with a negative Cologuard test has a colorectal cancer is less than 1 in 1500 (negative predictive value >99.9%) or has an advanced adenoma is less than 5.3% (negative predictive value 94.7%). These data are based on a prospective cross-sectional study of 10,000 individuals at average risk for colorectal cancer who were screened with both Cologuard and colonoscopy. (Judi Galvez al, N Engl J Med 2014;370(14):1082-2682) The normal value (reference range) for this assay is negative. COLOGUARD RE-SCREENING RECOMMENDATION: Periodic colorectal cancer screening is an important part of preventive healthcare for asymptomatic individuals at average risk for colorectal cancer. Following a negative Cologuard result, the Canadian Cancer Society and U.S. Multi-Society Task Force screening guidelines recommend a Cologuard re-screening interval of 3 years. References: [place] Cancer Society Guideline for Colorectal Cancer Screening: https://www.cancer.org/cancer/qqgao-btpmnp-lqulwn/jodsjcndi-rwxmpfevk-gidpais/ac s-rec ommendations.html.; Marko BARBA, Sondra PRESTON, Josué KernK, Colorectal Cancer Screening: Recommendations for Physicians and Patients from the U.S. Multi-Society Task Force on Colorectal Cancer Screening , Am J Gastroenterology 2017; 112:1226-4744. TEST DESCRIPTION: Composite algorithmic analysis of stool DNA-biomarkers with hemoglobin immunoassay. Quantitative values of individual biomarkers are not reportable and are not associated with individual biomarker result reference ranges. Cologuard is intended for colorectal cancer screening of adults of either sex, 45 years or older, who are at average-risk for colorectal cancer (CRC). Cologuard has been approved for use by the U.S. FDA. The performance of Cologuard was established in a cross sectional study of average-risk adults aged 50-84. Cologuard performance in patients ages 45 to 49 years was estimated by sub-group analysis of near-age groups. Colonoscopies performed for a positive result may find as the most clinically significant lesion: colorectal cancer [4.0%], advanced adenoma (including sessile serrated polyps greater than or equal to 1cm diameter) [20%] or non- advanced adenoma [31%]; or no colorectal neoplasia [45%]. These estimates are derived from a prospective cross-sectional screening study of 10,000 individuals at average risk for colorectal cancer who were screened with both Cologuard and colonoscopy. (Judi Galvez al, N Engl J Med 2014;370(14):9664-4905.) Cologuard may produce a false negative or false positive result (no colorectal cancer or precancerous polyp present at colonoscopy follow up). A negative Cologuard test result does not guarantee the absence of CRC or advanced adenoma (pre-cancer). The current Cologuard screening interval is every 3 years. (Canadian Cancer Society and U.S. Multi-Society Task Force). Cologuard performance data in a 10,000 patient pivotal study using colonoscopy as the reference method can be accessed at the following location: www.[place]/results. Additional description of the Cologuard test process, warnings and precautions can be found at www.[employer].Tonx. Stool 06/08/2024 7:05 PM EDT 06/10/2024 11:13 AM EDT [facility] MOLECULAR DIAGNOST[facility] DYAN GILLIS Final Result [facility] [address] [place] [id number] [facility] [address] [place] [id number] * (ABNORMAL) Comprehensive metabolic panel (05/17/2024 6:46 AM EDT) Sodium 144 133 - 145 mmol/L LAB CHEMISTRY METHOD 05/17/2024 10:[address] [facility] Potassium 4.5 3.5 - 5.5 [...] g/dL LAB CHEMISTRY METHOD 05/17/2024 10:[address] [facility] Albumin 2.6(L) 3.2 - 5.0 g/dL LAB CHEMISTRY METHOD 05/17/2024 10:[address] [facility] Total Bilirubin 0.3 0.0 - 1.4 mg/dL LAB CHEMISTRY METHOD 05/17/2024 10:[address] [facility] Blood Venous blood specimen / Unknown Venipuncture / Unknown 05/17/2024 6:46 AM EDT 05/17/2024 9:18 AM EDT Michelle Shannon MD LAB BLOOD ORDERABLES Final Resul t [facility] [address] [place] [address], * SCREENING MAMMOGRAPHY BI 2-VIEW BREAST INC [...] are composed of fatty and fibroglandular tissue. No suspicious mass, architectural distortion or suspicious calcifications [...] Low (<15%) [facility] IMG XR PROCEDURES Final Result * (ABNORMAL) Lipid panel (11/12/2021) LDL/HDL Ratio 4 0 - 4 Triglycerides 127 0 - 150 mg/dL Cholesterol 209(A) 0 - 200 mg/dL HDL 54 >=40 mg/dL LDL Cholesterol 130(A) 0 - 100 mg/dL Blood Venous blood specimen / Unknown Historical Provider LAB BLOOD ORDERABLES Sia l Result * Hepatitis C Screening (10/31/2007) Hepatitis C Screening abstracted Historical Provider HEALTH MAINTENANCE Final Result from Last 3 Months or Most Recently Relevant to Health Maintenance Insurance [employer] ([facility]) Care Teams Acetylene Cutter Relationship Specialty Start Date End Date Nette Orozco MD [address] [place] [id number] PCP - General Internal Medicine 02/15/24
== END 2024-12-05 14:58 | disposition home or self-care (01) ==
LOC: HO.RHES 13:43
PROVIDERS: PCP Internal Medicine; Visit Provider Student in an Organized Health Care Education/Training Program
DX: M06.00 Rheumatoid arthritis without rheumatoid factor, unspecified site (principal); M19.071 Primary osteoarthritis, right ankle and foot; M19.072 Primary osteoarthritis, left ankle and foot; Z51.81 Encounter for therapeutic drug level monitoring; Z79.620 Long term (current) use of immunosuppressive biologic
CPT/HCPCS: 99214